=== PATIENT | male | born 1960 | race Caucasian/White ===

== ENCOUNTER 2017-04-09 08:22 | Outpatient (CLI) | payer MEDICARE, MEDICAID ==
[2017-04-09] VITALS (11 sets, daily range): BP systolic 115–159; BP diastolic 70–89; PULSE 55–69; TEMP 97.9
[~2017-04-09] VITALS: Ht 182.9 cm; Wt 153.5 kg
[~2017-04-09 08:22] MED LIST: ABILIFY2 MG PO; ABILIFY5 MG; ABILIFY5 MG PO; ALLOPURINOL100 MG PO; ANTIFUNGAL1% TP; CARDI-OMEGA1000 MG PO; CRESTOR 10MG10 MG PO; DEPAKOTE500 M2 PO; DEPAKOTE500 MG PO; DESYREL 50MG50 MG PO; EPO IV; Epogen; FISH OIL1000 MG PO; FOLIC ACID 11 MG/TA1 PO; FOLIC ACID1 MG PO; FOSRENOL PO; FOSRENOL1000 MG PO; FOSRENOL500 MG PO; FOSRENOL750 MG PO; HALDOL 1MG T1 MG/TAB PO; HALDOL 2MG T2 MG/TAB PO; KAYEXALATE15 GM/60 M PO; LASIX 80MG TABL80 MG PO; LASIX80 MG PO; LEXAPRO10 MG PO; LEXAPRO20 MG PO; LORTAB 7.5/5001 TAB; LOVAZA1 GM PO; NEPHRO PO; NEPHROCAP PO; NEURONTIN100 MG PO; NEURONTIN100 MG/CAP PO; NEURONTIN400 MG PO; NORCO 325 MG-7.1 TAB PO; NYSTATIN CREAM15 GM TP; PHARMASSURE ZIN50 MG PO; PHOSLO667 MG PO; PLAVIX 75MG TAB75 MG PO; PRILOSEC 20MG20 MG PO; PRILOSEC20 MG PO; RENVELA PO; RENVELA800 MG PO; RITE AID BRAND650 MG PO; SENSIPAR30 MG; SENSIPAR60 MG PO; SENSIPAR90 MG PO; SEROQUEL 1100 MG/TAB PO; SEROQUEL 200MG200 MG PO; SEROQUEL100 MG PO; SEROQUEL300 MG PO; SEROQUEL50 MG PO; SIMVASTATIN20 MG PO; SODIUM BIC650 MG/TAB PO; SODIUM BICARB PO; SUPER EPA 2002000 MG PO; TOPAMAX50 MG PO; ZAROXOLYN5 MG PO; ZEMPLAR1 MCG IV; ZOCOR 20MG20 MG PO; ZOLOFT 100MG100 MG PO; ZYLOPRIM 100MG100 MG PO; [UNRECOGNIZED DRUG - OTHER] PO
[2017-04-09] MEDS ORDERED: SEROQUEL 200MG200 MG PO (09:32)
[2017-04-09] MEDS ORDERED: PERIGUARD TP (09:41)
[2017-04-09] MEDS ORDERED: WELLBUTRIN SR200 MG PO (09:43)
[2017-04-09] MEDS ORDERED: FLONASE NASAL S16 GM NS (09:46)
== END 2017-04-09 13:07 | disposition home or self-care (01) ==
LOC: COL.CAR 08:22
DX: T82.9XXA Unspecified complication of cardiac and vascular prosthetic device, implant and graft, initial encounter (principal); N18.6 End stage renal disease; Z99.2 Dependence on renal dialysis
CPT/HCPCS: J2250; J3010; Q9967

== ENCOUNTER 2018-10-16 11:56 | Inpatient (IN) | payer MEDICARE, MEDICAID ==
[~2018-10-16] VITALS: Ht 182.9 cm; Wt 145.3 kg
[2018-10-16] VITALS (254 sets, daily range): BP systolic 96–112; BP diastolic 60–67; PULSE 64–72; TEMP 97.5–98.2; O2SAT 86–99
[~2018-10-16 11:56] MED LIST changes: +DEPAKOTE ER 50500 MG PO; +FLONASE NASAL S16 GM NS; +PERIGUARD TP; +WELLBUTRIN SR200 MG PO
[2018-10-16 12:29] LABS: PROTHROMBIN TIME 11.1 SECONDS (9.7-12.8)
[2018-10-16 12:31] LABS: BASO % 0.4 % (0.0-2.0); EOS # 0.1 (0.0-0.7); EOS % 0.9 % (0-4.0); GRAN # 4.5 (1.4-6.5); GRAN % 65.9 % (42.2-75.2); HEMATOCRIT 38.5 % (42.0-52.0); HEMOGLOBIN 12.3 g/dl (13.5-18.0); LYMPH # 1.6 (1.2-3.4); LYMPH % 23.2 % (20.0-51.0); MEAN CELL VOLUME 99 fl (80.0-100.0); MEAN CORPUSCULAR HEMOGLOBIN 32 pg (27.0-31.0); MEAN CORPUSCULAR HGB CONC 32 g/dl (33.0-37.0); MONO # 0.6 (0.1-0.6); MONO % 9.2 % (1.7-9.3); PLATELET COUNT 203 K/mm3 (130-400); REDCELL DISTRIBUTION WIDTH-CV 14.6 % (11.5-14.5)
[2018-10-16] MEDS ORDERED: TYLENOL 500MG500 MG PO (12:58)
[2018-10-16] MEDS ORDERED: TEMOVATE0.051 TOP (13:49)
[2018-10-16] MEDS ORDERED: NIZORAL CREAM15 GM TOP (13:52)
[2018-10-16] MEDS ORDERED: CYTOMEL 2525 MCG/TAB PO (13:53)
[2018-10-16] MEDS ORDERED: LOVAZA1 GM PO (13:53)
[2018-10-16] MEDS ORDERED: SEROQUEL300 MG PO (13:55)
[2018-10-16 14:04] LABS: MAGNESIUM 2.3 mg/dL (1.6-2.3); PHOSPHOROUS 4.9 mg/dL (2.5-4.5)
[2018-10-16 14:19] LABS: TROPONIN-I 0.856 ng/mL (0.000-0.034)
--- NOTE | 2018-10-16 14:19 | NUR ---
1419: CRIT VALUE - TRIPONIN 0.856 - DR FAUSTIN NOTIFIED AT 1421 - NO NEW ORDERS 1455: CRIT VALUE - CREAT 7.48 - DR FAUSTIN NOTIFIED AT 1455 - NO NEW ORDERS
[2018-10-16 14:44] LABS: ALBUMIN 3.8 gm/dL (3.5-5.0); BILIRUBIN,TOTAL 0.3 mg/dL (0.0-1.0); CALCIUM 10.1 mg/dL (8.4-10.2); POTASSIUM 4.2 mmol/L (3.4-5.0); TOTAL PROTEIN 6.6 gm/dL (6.4-8.2)
[2018-10-16 14:55] LABS: CREATININE, serum 7.48 mg/dL (0.66-1.25)
--- NOTE | 2018-10-16 15:26 | NUR ---
ALL MEDS GIVEN VERBAL WITH READBACK. SEE MERGE FOR ADMIN TIMES.
--- NOTE | 2018-10-16 18:30 | NUR ---
PT C/O DULL ACHE AT SITE. SITE APPEARS NORMAL. PT GIVEN TYLENOL
--- NOTE | 2018-10-16 19:15 | NUR ---
Bedside report received from IRMA Ahmadi.
--- NOTE | 2018-10-16 20:00 | NUR ---
REPORT GIVEN AT BEDSIDE. MESSAGE CONVEYED TO PM SHIT NURSE PT NPO AFTER MIDNIGHT FOR ICD PLACEMENT 10/17. NO ORDER IN THE SYSTEM.
--- NOTE | 2018-10-16 20:00 | NUR ---
Assessment complete at this time. Patient is resting in bed watching tv. no complaints of pain at this time, just slight discomfort from lying flat. Patient is requesting something to eat at this time. Will provide snack. Patient has no other needs at this time. Will continue to monitor. Call light within reach.
[2018-10-17] VITALS (785 sets, daily range): BP systolic 97–128; BP diastolic 59–74; PULSE 58–66; TEMP 97.2–98.9; O2SAT 41–100
--- NOTE | 2018-10-17 | NUR ---
Assessment complete at this time. Patient was asleep. When sleeping his O2 sat dropped to 90%. Asked if patient uses a CPAP at home, states that he used to, but couldnt sleep with it on, so he stopped. Placed patient on 2L OM. Patient has no current complaints of pain or discomfort. Catheter site remains clean, dry, and no hematoma present. Will continue to monitor. Call light within reach.
--- NOTE | 2018-10-17 04:00 | NUR ---
Assessment complete at this time. Patient sleeps between disturbances. No complaints of pain or discomfort at this time. Femoral site continues to remain clean, dry, and free of hematoma. Patient has no current needs at this time. Will continue to monitor. Call light within reach.
--- NOTE | 2018-10-17 07:21 | NUR ---
Bedside report given to IRMA Ahmadi.
--- NOTE | 2018-10-17 08:30 | NUR ---
DURING ASSESSMENT SMALL BRUISING (BROWN AND PURPLE IN COLOR) WERE ON PTS UPPER BACK WITH SMALL 1" SCRATCH LIKE MARKINGS ON PTS UPPER BACK. PT ASKED IF HE FELL OR KNEW WHERE MARKINGS CAME FROM. PT DENIED FALLING AND SAYS HE DOESN'T KNOW AND THE AREA DOESN'T HURT. WILL MONITOR THE AREA.
--- NOTE | 2018-10-17 10:32 | NUR ---
Nurse lining caser was contacted to look into options for discharge. Patient currently lives at [facility] ([phone] with supervisor contact and service clerks there Angelina at [phone]. [facility] called father Berny and discussed options if patient needs senior care care at time of discharge. Berny is a DPOA although [facility] did not find written DPOA form. [facility] is trying to verify with [place]. Father indiated preferences were: 1) [facility] bed 2) [facility] in [place] and 3) [facility]. Berny asked [facility] to confer with [facility] about their preference. Patient had indicated [facility] and [place] as facilities he had stayed at in the past and would be agreeable to stay in either place if necessary. Choice form completed with father and placed on the chart. Patient verbalizes agreement. Message left with Angelina on cell phone at [facility]. Patient's primary care provider is Dr. Tolbert. No discharge date has been determined. Lifevest has been ordered Care managment-web content & social media manager will continue to follow.
--- NOTE | 2018-10-17 11:00 | NUR ---
PT TO DIALYSIS IN [facility]
[2018-10-17 11:52] LABS: EOS # 0.1 (0.0-0.7); EOS % 2.2 % (0-4.0); GRAN # 2.7 (1.4-6.5); GRAN % 64.2 % (42.2-75.2); HEMATOCRIT 35.1 % (42.0-52.0); HEMOGLOBIN 11.2 g/dl (13.5-18.0); LYMPH % 24.9 % (20.0-51.0); MEAN CELL VOLUME 100 fl (80.0-100.0); MEAN CORPUSCULAR HEMOGLOBIN 32 pg (27.0-31.0); MEAN CORPUSCULAR HGB CONC 32 g/dl (33.0-37.0); MEAN PLATELET VOLUME 10.6 fl (7.4-10.4); MONO # 0.3 (0.1-0.6); PLATELET COUNT 158 K/mm3 (130-400); RED BLOOD COUNT 3.52 M/mm3 (4.20-5.60); REDCELL DISTRIBUTION WIDTH-CV 14.7 % (11.5-14.5)
--- NOTE | 2018-10-17 12:00 | NUR ---
Initial visit; Patient thanked Drink Mixer for visit and offering God's blessings following his confirmation that he has a good support system.
[2018-10-17 12:01] LABS: CALCIUM 9.7 mg/dL (8.4-10.2); POTASSIUM 4.7 mmol/L (3.4-5.0)
[2018-10-17 12:08] LABS: CREATININE, serum 8.26 mg/dL (0.66-1.25)
--- NOTE | 2018-10-17 14:55 | NUR ---
Nurse counseling case manager contacted Kathy, a caregiver from [facility]. She feels the 3 options for post acute care are appropriate. Patient is curently in dialysis. NCM will contact [facility] since that is father's first choice.
--- NOTE | 2018-10-17 15:18 | NUR ---
PT RETURNS TO ICU RM 7 FROM DIALYSIS
--- NOTE | 2018-10-17 19:10 | NUR ---
Bedside report received from IRMA Ahmadi
--- NOTE | 2018-10-17 20:00 | NUR ---
Patient is resting in bed at this time watching TV. Shift assessment complete at this time. Patient is requesting a snack, to be provided. Patient has no complaints of pain or discomfort. Will continue to monitor. Call light within reach.
[2018-10-18] VITALS (1051 sets, daily range): BP systolic 101–141; BP diastolic 61–83; PULSE 51–67; TEMP 97.8–98.5; O2SAT 68–100
--- NOTE | 2018-10-18 | NUR ---
Patient asleep at this time. No current needs. Will continue to monitor. Call light within reach.
--- NOTE | 2018-10-18 04:00 | NUR ---
Patient asleep at this time. No current needs. Will continue to monitor. Call light within reach.
--- NOTE | 2018-10-18 07:01 | NUR ---
Bedside report given to IRMA Patterson
[2018-10-18 07:05] LABS: BASO % 0.7 % (0.0-2.0); EOS # 0.1 (0.0-0.7); EOS % 2.7 % (0-4.0); GRAN # 2.5 (1.4-6.5); GRAN % 55.8 % (42.2-75.2); LYMPH # 1.4 (1.2-3.4); LYMPH % 30.8 % (20.0-51.0); MEAN CELL VOLUME 99 fl (80.0-100.0); MEAN CORPUSCULAR HEMOGLOBIN 31 pg (27.0-31.0); MEAN CORPUSCULAR HGB CONC 32 g/dl (33.0-37.0); MEAN PLATELET VOLUME 10.6 fl (7.4-10.4); MONO # 0.4 (0.1-0.6); MONO % 9.3 % (1.7-9.3); PLATELET COUNT 163 K/mm3 (130-400); REDCELL DISTRIBUTION WIDTH-CV 14.6 % (11.5-14.5)
[2018-10-18 07:06] LABS: HEMATOCRIT 34.7 % (42.0-52.0)
[2018-10-18 07:25] LABS: CALCIUM 9.7 mg/dL (8.4-10.2); POTASSIUM 4.6 mmol/L (3.4-5.0)
[2018-10-18 07:32] LABS: CREATININE, serum 7.68 mg/dL (0.66-1.25)
--- NOTE | 2018-10-18 10:06 | NUR ---
Program Advisor Cathy contacted and was uninformed of pt situation. Returned call at [phone] with information that [facility] has accepted the pt, although they are at maximum capacity with pending discharges today. Pt will be able to transfer there tomorrow. Evelyn FOOTE and [facility]er[facility] FOOTE notified. No further orders. Pt and parents updated as well. Ayleen from [facility] notifed me that documentation for approval is missing. Proper records will be collected and faxed right away.
--- NOTE | 2018-10-18 10:29 | NUR ---
Visited with patient and provided spiritual care. The Doctor came in so I excused myself.
--- NOTE | 2018-10-18 10:32 | NUR ---
Update: DUTCH rc call from ICU about dc today. DUTCH called [facility], they are full pending dc's today, may have av 10/19/18. Other two placements were not previously screened. DUTCH sent referrals to both. [place] and [place] . Awaiting screen results or acceptance to [facility]
--- NOTE | 2018-10-18 18:59 | NUR ---
Bedside report received from IRMA Patterson
--- NOTE | 2018-10-18 20:00 | NUR ---
Shift assessment complete at this time. Patient is resting in bed watching TV. Requests to use phone to call his parents, assisted with dialing the number for him. No complaints of pain or discomfort. Changed occlusive dressing on cath site to a bandaid. Site looks clean, dry, with no hematoma or pain present. Patient has no other needs at this time. Will continue to monitor. Call light within reach.
[2018-10-19] VITALS (497 sets, daily range): BP systolic 108–136; BP diastolic 56–73; PULSE 49–57; TEMP 97.5–98.5; O2SAT 55–100
--- NOTE | 2018-10-19 | NUR ---
Patient resting in bed at this time. He is awake in bed, has no current needs at this time. Will continue to monitor. Call light within reach.
--- NOTE | 2018-10-19 01:45 | NUR ---
Patient has decreasing O2 sats at this time possibly due to sleep apnea. oxymask applied at 2.5L. RT notified.
--- NOTE | 2018-10-19 04:00 | NUR ---
Patient up to restroom at this time with standby assist. Patient had no urine or BM. Returned to bed. No further needs at this time. Will continue to monitor. Call light within reach.
--- NOTE | 2018-10-19 07:05 | NUR ---
Bedside report given to IRMA Patterson
[2018-10-19 09:03] LABS: BASO % 0.9 % (0.0-2.0); EOS # 0.1 (0.0-0.7); EOS % 1.9 % (0-4.0); GRAN # 2.3 (1.4-6.5); GRAN % 49.2 % (42.2-75.2); HEMATOCRIT 34.7 % (42.0-52.0); HEMOGLOBIN 11.1 g/dl (13.5-18.0); LYMPH # 1.6 (1.2-3.4); LYMPH % 34.8 % (20.0-51.0); MEAN CELL VOLUME 98 fl (80.0-100.0); MEAN CORPUSCULAR HEMOGLOBIN 31 pg (27.0-31.0); MEAN CORPUSCULAR HGB CONC 32 g/dl (33.0-37.0); MEAN PLATELET VOLUME 10.8 fl (7.4-10.4); MONO # 0.6 (0.1-0.6); MONO % 11.9 % (1.7-9.3); PLATELET COUNT 134 K/mm3 (130-400); RED BLOOD COUNT 3.53 M/mm3 (4.20-5.60); REDCELL DISTRIBUTION WIDTH-CV 14.5 % (11.5-14.5)
--- NOTE | 2018-10-19 13:30 | NUR ---
Pt arrived to room 356 at this time. He currently denies pain. No SOB. Fistula to LFA, thrill palpitated, bruit auscultated. No edema present. Pt denies needs at this time. Call light within reach.
--- NOTE | 2018-10-19 18:36 | NUR ---
Zoll in to fit patient for life vest at this time. This nurse at bedside to help with instructions. Pt taught via teach back method, pt forgetful. Pt denied any pain, chest pain or SOB after arriving to the floor. VSS. Call light within reach.
--- NOTE | 2018-10-19 19:40 | NUR ---
Shift assessment complete. Pt resting in bedside recliner, awake, a&o c some noted mental delay, cooperative c cares. Pt denies pain or any other c/o at this time. INT x2 patent. HD AVF noted to L forearm, strong bruit/thrill. Tele in place. Live vest in place, recently fitted; reviewed c pt. Pt denies needs. Call light in reach, will monitor.
[2018-10-20] VITALS (18 sets, daily range): BP systolic 74–136; BP diastolic 49–80; PULSE 49–59; TEMP 97.5–98.2
--- NOTE | 2018-10-20 08:27 | NUR ---
Pt assessment complete. Pt is laying in bed upon entry sleeping, he arouses to voice. Pt reports no pain but being very tired. He denies chest pain or SOB. Pt has life vest on, battery changed. Breakfast ordered for patient. He denies further needs. Call light within reach.
--- NOTE | 2018-10-20 10:18 | NUR ---
DUTCH contacted Kate, at [facility], on bed availability. Kate reports that they do not have a bed available today and requested updates on the patient. DUTCH faxed over updates. DUTCH then attempted to contact Jaja at [facility]. DUTCH left a voicemail. DUTCH then contacted Christina at [facility]. Christina reports that they are still screening the patient and will have an answer later today. SW to continue to follow.
--- NOTE | 2018-10-20 11:28 | NUR ---
SW contacted the patient's father, Berny, to update on the referrals sent for SNF and to discuss other options closer to [place]; due to the patient needing dialysis and having a PCP in [place]. The patient's father reports that he would be agreeable to SNF in [place]. The patient's father preferred 1) [facility] 2) [facility] 3) [facility]. DUTCH has contacted and faxed a referral to all three facilities. SW awaiting their screenings and the screenings from [facility] and [facility].
--- NOTE | 2018-10-20 11:31 | NUR ---
Pt down to dialysis via W/C at this time.
[2018-10-20 11:42] LABS: CALCIUM 9.5 mg/dL (8.4-10.2); MAGNESIUM 2.4 mg/dL (1.6-2.3); POTASSIUM 4.8 mmol/L (3.4-5.0)
[2018-10-20 12:11] LABS: CREATININE, serum 12.42 mg/dL (0.66-1.25)
--- NOTE | 2018-10-20 13:19 | NUR ---
Ame, from [facility], reports that they cannot accept the patient. SW awaiting screenings from the other facilities.
--- NOTE | 2018-10-20 14:08 | NUR ---
Octavio, at [facility], reports that they have declined the patient. [facility], reports that they [facility] declined the patient.
--- NOTE | 2018-10-20 15:04 | NUR ---
Pt back from dialysis. Lunch ordered at this time.
[2018-10-20] MEDS ORDERED: TOPROL XL 25MG25 MG PO (15:05)
--- NOTE | 2018-10-20 15:52 | NUR ---
[facility] for a skilled stay. SW informed the patient, patient's father, and the patient's caregiver (Carolyn) from [place]. They were all in agreeance for the [facility] transferring to [facility]. The [facility] to [facility] today, [facility]20[facility] to [facility]. Transportation was set for around 1600, via [facility]. SW informed the patient, patient's nurse, and the patient's father via phone. They were all in agreeance. SW presented and explained the IM form to the patient. SW also explained the IM form to the patient's father, via phone. The patient and patient's father verbalized understanding. The patient's father gave SW his verbal consent and the patient was provided a copy. No additional needs at this time.
--- NOTE | 2018-10-20 16:30 | NUR ---
Pt had BM prior to leaving, assisted with clothing change. Pt wheeled out of facility by [facility] employee. IV to ABBIE and José Miguel parker'd, catheter tip in place.
--- NOTE | 2018-10-20 17:45 | NUR ---
Attempted to call report to nurse Anna deferred report. Information about battery change and phone to be near pt while sleeping. Instructed to call 800 number for zoll if any questions.
== END 2018-10-20 16:45 | DRG 280 ==
LOC: COL.ER 11:56 → ICU 12:58 → MEDICAL 10-19 13:30
PROVIDERS: Family Medicine; Internal Medicine; Physician Assistant; ADMIT Hospitalist
PROC: B2111ZZ Fluoroscopy of Multiple Coronary Arteries using Low Osmolar Contrast (ICD-10-PCS; 2018-10-16)
PROC: B2151ZZ Fluoroscopy of Left Heart using Low Osmolar Contrast (ICD-10-PCS; 2018-10-16)
PROC: 4A023N7 Measurement of Cardiac Sampling and Pressure, Left Heart, Percutaneous Approach (ICD-10-PCS; 2018-10-16)
PROC: 5A1D70Z Performance of Urinary Filtration, Intermittent, Less than 6 Hours Per Day (ICD-10-PCS; principal; 2018-10-17)
PROC: 5A1D70Z Performance of Urinary Filtration, Intermittent, Less than 6 Hours Per Day (ICD-10-PCS; 2018-10-20)
DX: I47.2 Ventricular tachycardia (principal); N18.6 End stage renal disease; I21.A1 Myocardial infarction type 2; I12.0 Hypertensive chronic kidney disease with stage 5 chronic kidney disease or end stage renal disease; Z68.41 Body mass index [BMI] 40.0-44.9, adult; I42.0 Dilated cardiomyopathy; E87.1 Hypo-osmolality and hyponatremia; N25.81 Secondary hyperparathyroidism of renal origin; Z99.2 Dependence on renal dialysis; E78.5 Hyperlipidemia, unspecified; E66.01 Morbid (severe) obesity due to excess calories; F70 Mild intellectual disabilities; D63.1 Anemia in chronic kidney disease; F41.1 Generalized anxiety disorder; F20.9 Schizophrenia, unspecified; E83.52 Hypercalcemia; G62.9 Polyneuropathy, unspecified; E83.39 Other disorders of phosphorus metabolism; M10.9 Gout, unspecified; I95.9 Hypotension, unspecified
CPT/HCPCS: 99222-AI; 99232-AI; 99233-AI; 99239; C1760; C1894; J0153; J0282; J1644; J2250; J3010; J7030; J7040; J7060; Q9967

== ENCOUNTER 2018-10-22 16:38 | Inpatient (IN) | payer MEDICARE, MEDICAID ==
[~2018-10-22] VITALS: Ht 180.3 cm; Wt 145.9 kg
[~2018-10-22 16:38] MED LIST changes: +CYTOMEL 2525 MCG/TAB PO; +NIZORAL CREAM15 GM TOP; +TEMOVATE0.051 TOP; +TOPROL XL 25MG25 MG PO; +TYLENOL 500MG500 MG PO
[2018-10-22 17:08] LABS: BASO % 0.6 % (0.0-2.0); EOS # 0.1 (0.0-0.7); EOS % 1.5 % (0-4.0); GRAN # 2.4 (1.4-6.5); GRAN % 69.9 % (42.2-75.2); HEMOGLOBIN 11.8 g/dl (13.5-18.0); LYMPH # 0.7 (1.2-3.4); LYMPH % 20.6 % (20.0-51.0); MEAN CELL VOLUME 99 fl (80.0-100.0); MEAN CORPUSCULAR HEMOGLOBIN 32 pg (27.0-31.0); MEAN CORPUSCULAR HGB CONC 33 g/dl (33.0-37.0); MEAN PLATELET VOLUME 10.5 fl (7.4-10.4); MONO # 0.2 (0.1-0.6); MONO % 6.8 % (1.7-9.3); PLATELET COUNT 205 K/mm3 (130-400); RED BLOOD COUNT 3.64 M/mm3 (4.20-5.60); REDCELL DISTRIBUTION WIDTH-CV 14.6 % (11.5-14.5)
[2018-10-22 17:09] LABS: HEMATOCRIT 35.9 % (42.0-52.0)
[2018-10-22 17:19] LABS: ALANINE AMINOTRANSFERASE 37 U/L (21-72); ALBUMIN 4.3 gm/dL (3.5-5.0); ALKALINE PHOSPHATASE 82 U/L (50-136); ANION GAP 13 mmol/L (7-16); AST,SGOT 24 U/L (15-37); BILIRUBIN,TOTAL 0.4 mg/dL (0.0-1.0); BLOOD UREA NITROGEN 22 mg/dL (9-20); CALCIUM 9.9 mg/dL (8.4-10.2); CARBON DIOXIDE 27 mmol/L (22-30); CHLORIDE 103 mmol/L (98-107); GLUCOSE 111 mg/dL (74-106); MAGNESIUM 2.1 mg/dL (1.6-2.3); PHOSPHOROUS 3.7 mg/dL (2.5-4.5); POTASSIUM 4.2 mmol/L (3.4-5.0); SODIUM 143 mmol/L (137-145); TOTAL PROTEIN 7.4 gm/dL (6.4-8.2)
[2018-10-22 17:34] LABS: CREATININE, serum 5.62 mg/dL (0.66-1.25); TROPONIN-I 0.065 ng/mL (0.000-0.034)
[2018-10-22 17:45] LABS: VALPROIC ACID (DEPAKENE) < 10.0 ug/mL (50.0-100.0)
[2018-10-22 23:44] VITALS: BP 105/94; PULSE 66; TEMP 989
[2018-10-22 23:52] VITALS: O2SAT 95
[2018-10-23] VITALS (680 sets, daily range): BP systolic 109–142; BP diastolic 61–74; PULSE 53–62; TEMP 97.4–98.5; O2SAT 83–100
[2018-10-23] MEDS ORDERED: FISH OIL 1000MG1 CAP PO (00:04)
[2018-10-23 05:57] LABS: HEMOGLOBIN 11.4 g/dl (13.5-18.0); MEAN CELL VOLUME 100 fl (80.0-100.0); MEAN CORPUSCULAR HEMOGLOBIN 32 pg (27.0-31.0); MEAN CORPUSCULAR HGB CONC 32 g/dl (33.0-37.0); MEAN PLATELET VOLUME 10.2 fl (7.4-10.4); PLATELET COUNT 186 K/mm3 (130-400); REDCELL DISTRIBUTION WIDTH-CV 14.8 % (11.5-14.5)
[2018-10-23 05:58] LABS: HEMATOCRIT 36.1 % (42.0-52.0)
[2018-10-23 06:11] LABS: CALCIUM 9.8 mg/dL (8.4-10.2); MAGNESIUM 2.2 mg/dL (1.6-2.3); POTASSIUM 4.6 mmol/L (3.4-5.0)
[2018-10-23 06:13] LABS: CREATININE, serum 7.83 mg/dL (0.66-1.25)
[2018-10-23 09:57] LABS: TSH w REFLEX 6.8 uIU/mL (0.465-4.680)
[2018-10-24 01:59] VITALS: BP 115/64; PULSE 57
[2018-10-24 08:00] VITALS: BP 127/61; PULSE 48; TEMP 97.5
[2018-10-24 09:17] LABS: BASO % 0.9 % (0.0-2.0); EOS # 0.1 (0.0-0.7); GRAN # 2.7 (1.4-6.5); GRAN % 58.6 % (42.2-75.2); HEMOGLOBIN 11.3 g/dl (13.5-18.0); LYMPH # 1.4 (1.2-3.4); LYMPH % 31.2 % (20.0-51.0); MEAN CELL VOLUME 100 fl (80.0-100.0); MEAN CORPUSCULAR HEMOGLOBIN 32 pg (27.0-31.0); MEAN CORPUSCULAR HGB CONC 32 g/dl (33.0-37.0); MEAN PLATELET VOLUME 10.1 fl (7.4-10.4); MONO # 0.3 (0.1-0.6); MONO % 6.9 % (1.7-9.3); PLATELET COUNT 180 K/mm3 (130-400); RED BLOOD COUNT 3.58 M/mm3 (4.20-5.60); REDCELL DISTRIBUTION WIDTH-CV 14.9 % (11.5-14.5)
[2018-10-24 09:18] LABS: HEMATOCRIT 35.8 % (42.0-52.0)
[2018-10-24 09:29] LABS: ALBUMIN 4.2 gm/dL (3.5-5.0); CALCIUM 9.9 mg/dL (8.4-10.2); PHOSPHOROUS 5.9 mg/dL (2.5-4.5); POTASSIUM 4.4 mmol/L (3.4-5.0)
[2018-10-24 09:44] LABS: CREATININE, serum 8.27 mg/dL (0.66-1.25)
[2018-10-24 12:28] VITALS: BP 103/83; PULSE 67; TEMP 98
[2018-10-24 16:00] VITALS: BP 128/62; PULSE 67; TEMP 97.6
[2018-10-24 19:18] VITALS: BP 121/62; PULSE 73; TEMP 98.8
[2018-10-24 23:29] VITALS: BP 127/76; PULSE 69; TEMP 97.8
[2018-10-25 05:06] VITALS: BP 127/65; PULSE 52
[2018-10-25 08:16] VITALS: BP 116/48; PULSE 62; TEMP 98.2
[2018-10-25 11:07] VITALS: BP 140/64; PULSE 50; TEMP 97.7
[2018-10-25] MEDS ORDERED: WELLBUTRIN SR150 M1 PO (12:54)
[2018-10-25] MEDS ORDERED: SYNTHROID0.05 MG/TA PO (12:56)
== END 2018-10-25 14:56 | DRG 308 ==
LOC: COL.ER 16:38 → ICU 20:37 → MEDICAL 10-23 15:30 → ICU 10-23 15:30 → MEDICAL 10-23 15:30
PROVIDERS: Emergency Medicine; Internal Medicine Cardiovascular Disease; Internal Medicine Nephrology
PROC: 5A1D70Z Performance of Urinary Filtration, Intermittent, Less than 6 Hours Per Day (ICD-10-PCS; principal; 2018-10-24)
DX: I47.2 Ventricular tachycardia (principal); N18.6 End stage renal disease; I12.0 Hypertensive chronic kidney disease with stage 5 chronic kidney disease or end stage renal disease; Z68.42 Body mass index [BMI] 45.0-49.9, adult; I42.0 Dilated cardiomyopathy; T38.1X5A Adverse effect of thyroid hormones and substitutes, initial encounter; Z99.2 Dependence on renal dialysis; F81.9 Developmental disorder of scholastic skills, unspecified; E78.5 Hyperlipidemia, unspecified; D63.1 Anemia in chronic kidney disease; F20.9 Schizophrenia, unspecified; E66.01 Morbid (severe) obesity due to excess calories; F41.9 Anxiety disorder, unspecified
CPT/HCPCS: G0378; J0282; J7060

== ENCOUNTER → 2018-10-28 | Outpatient (REF) ==
[~2018-10-28] MED LIST changes: +FISH OIL 1000MG1 CAP PO; +SYNTHROID0.05 MG/TA PO; +WELLBUTRIN SR150 M1 PO
[2018-10-28 07:58] LABS: PROTHROMBIN TIME 11.9 SECONDS (9.7-12.8)
[2018-10-28 07:59] LABS: BASO % 0.9 % (0.0-2.0); EOS # 0.1 (0.0-0.7); EOS % 2.6 % (0-4.0); GRAN # 2.7 (1.4-6.5); GRAN % 60.2 % (42.2-75.2); HEMOGLOBIN 11.2 g/dl (13.5-18.0); LYMPH # 1.2 (1.2-3.4); MEAN CELL VOLUME 103 fl (80.0-100.0); MEAN CORPUSCULAR HEMOGLOBIN 32 pg (27.0-31.0); MEAN CORPUSCULAR HGB CONC 31 g/dl (33.0-37.0); MEAN PLATELET VOLUME 10.6 fl (7.4-10.4); MONO # 0.5 (0.1-0.6); MONO % 9.9 % (1.7-9.3); PLATELET COUNT 171 K/mm3 (130-400); REDCELL DISTRIBUTION WIDTH-CV 14.9 % (11.5-14.5)
[2018-10-28 08:01] LABS: ALBUMIN 3.9 gm/dL (3.5-5.0); BILIRUBIN,TOTAL 0.3 mg/dL (0.0-1.0); CALCIUM 9.8 mg/dL (8.4-10.2); HEMATOCRIT 35.9 % (42.0-52.0); POTASSIUM 4.9 mmol/L (3.4-5.0); TOTAL PROTEIN 6.7 gm/dL (6.4-8.2)
[2018-10-28 08:04] LABS: CREATININE, serum 8.47 mg/dL (0.66-1.25)
== END ==
LOC: ZCOL.LAB 07:50
PROVIDERS: Internal Medicine
DX: I47.2 Ventricular tachycardia (principal); I42.9 Cardiomyopathy, unspecified; N18.6 End stage renal disease

== ENCOUNTER 2020-04-26 11:35 | Outpatient (CLI) | payer MEDICARE, MEDICAID ==
[2020-04-26] MEDS ORDERED: ZYLOPRIM 100MG100 MG PO (11:49)
[2020-04-26] MEDS ORDERED: COLACE 100100 MG/CAP PO (11:51)
[2020-04-26] MEDS ORDERED: LOPID 600M600 MG/TAB PO (11:52)
[2020-04-26] MEDS ORDERED: CYTOMEL 2525 MCG/TAB PO (11:55)
[2020-04-26] MEDS ORDERED: MIRALAX PA17 GM/Dose PO (11:56)
[2020-04-26] MEDS ORDERED: BACTROBAN15 GM TOP (11:57)
[2020-04-26] MEDS ORDERED: ZYPREXA 5MG5 MG PO (12:11)
[2020-04-26] MEDS ORDERED: OMEGA-3 1000 MG1 CAP PO (12:12)
[2020-04-26] MEDS ORDERED: SEROQUEL XR300 MG PO (12:13)
[2020-04-26] MEDS ORDERED: SEROQUEL 200MG200 MG PO (12:15)
[2020-04-26 13:59] VITALS: BP 150/81; PULSE 60
--- NOTE | 2020-04-26 14:01 | NUR ---
SEE MERGE DOCUMENTATION FOR MEDICATION ADMINISTRATION AND INTRA/POST PROCEDURE SEDATION ASSESSMENTS.
--- NOTE | 2020-04-26 15:48 | NUR ---
INT discontinued intact. Discharge papers given. Transferred to [employer] van by coleen
== END 2020-04-26 15:49 | disposition home or self-care (01) ==
LOC: COL.CAR 11:35
DX: T82.898A Other specified complication of vascular prosthetic devices, implants and grafts, initial encounter (principal); I12.0 Hypertensive chronic kidney disease with stage 5 chronic kidney disease or end stage renal disease; N18.6 End stage renal disease; E03.9 Hypothyroidism, unspecified; Z86.73 Personal history of transient ischemic attack (TIA), and cerebral infarction without residual deficits; Z88.6 Allergy status to analgesic agent; Z79.51 Long term (current) use of inhaled steroids
CPT/HCPCS: J1644; Q9967

== ENCOUNTER 2020-08-17 18:22 | Inpatient (IN) | payer MEDICARE, MEDICAID ==
[~2020-08-17] VITALS: Ht 177.8 cm; Wt 131.5 kg
[~2020-08-17 18:22] MED LIST changes: +BACTROBAN15 GM TOP; +COLACE 100100 MG/CAP PO; +LOPID 600M600 MG/TAB PO; +MIRALAX PA17 GM/Dose PO; +OMEGA-3 1000 MG1 CAP PO; +ZYPREXA 5MG5 MG PO
--- NOTE | 2020-08-17 20:03 | NUR ---
Pt arrived via EMS to medical unit room 356. Pt stable at this time, states no needs at this time.
[2020-08-17] MEDS ORDERED: BACTRIM DS 8001 TAB PO ×2 (23:01→23:02)
[2020-08-17] MEDS ORDERED: WELLBUTRIN SR200 MG PO (23:07)
[2020-08-17] MEDS ORDERED: TRIPHROCAPS SOFT1 MG PO (23:13)
[2020-08-17] MEDS ORDERED: PHARMASSURE ZIN50 MG PO (23:17)
[2020-08-18] VITALS (7 sets, daily range): BP systolic 110–138; BP diastolic 57–81; PULSE 58–74; TEMP 97.2–98.2
--- NOTE | 2020-08-18 05:45 | NUR ---
Assisted pt to use bedpan few times during this shift, pt only passed gas. no c/o during rest. pain with movement of lt leg. Meds administered. Call light within reach.
--- NOTE | 2020-08-18 07:21 | NUR ---
Report given to IRMA Menchaca.
--- NOTE | 2020-08-18 10:18 | NUR ---
No IV site at this time. Generalized edema noted in bilateral lower extremities. L knee larger in size than R. Generalized bruising covering body at this time. Pt placed on bed christina during assessment with no results.
--- NOTE | 2020-08-18 10:45 | NUR ---
Initial visit; Patient thanked Database Specialist for looking in on him and offering God's blessings and keeping him in museum informatics specialist's prayers.
[2020-08-18 13:25] LABS: BASO % 0.9 % (0.0-2.0); EOS # 0.1 (0.0-0.7); EOS % 2.2 % (0-4.0); GRAN # 1.9 (1.4-6.5); GRAN % 58.8 % (42.2-75.2); HEMOGLOBIN 11.2 g/dl (13.5-18.0); LYMPH # 0.8 (1.2-3.4); MEAN CELL VOLUME 104 fl (80.0-100.0); MEAN CORPUSCULAR HEMOGLOBIN 33 pg (27.0-31.0); MEAN CORPUSCULAR HGB CONC 31 g/dl (33.0-37.0); MEAN PLATELET VOLUME 10.8 fl (7.4-10.4); MONO # 0.4 (0.1-0.6); MONO % 11.8 % (1.7-9.3); PLATELET COUNT 204 K/mm3 (130-400); RED BLOOD COUNT 3.42 M/mm3 (4.20-5.60); REDCELL DISTRIBUTION WIDTH-CV 14.4 % (11.5-14.5)
[2020-08-18 13:30] LABS: HEMATOCRIT 35.7 % (42.0-52.0)
[2020-08-18 13:41] LABS: ALBUMIN 4.3 gm/dL (3.5-5.0); CALCIUM 10.4 mg/dL (8.4-10.2); CREATININE, serum 7.12 (0.66-1.25); PHOSPHOROUS 4.9 mg/dL (2.5-4.5); POTASSIUM 4.7 mmol/L (3.4-5.0)
--- NOTE | 2020-08-18 13:43 | NUR ---
Primary nurse was assisted with [phone] patient care by [employer] student Meera Moore and [employer] instructor Kimberley Myers RN-.
--- NOTE | 2020-08-18 16:45 | NUR ---
DUTCH contacted the patient's mother/DPOA-HC, Mallory (ph#[phone]), to discuss discharge plan. The patient resides at [facility] in [place]. She reports that the patient is independent with ADLs and has a walker. She states that the [facility] helps him with his medications and all his medical needs. The patient's PCP is Dr. Sonny Bates and she thinks the [facility] gets his meds from [facility]. The patient's advance directives are in EMR. His DPOA-HC is his mother and father, Ari (ph#[phone]). The patient had a patellar fracture. SW discussed the possiblity of needing post-acute rehab. Mallory reports that she would be agreeable to rehab for the patient and would be interested in [facility]. She states that [facility] takes care of the patient and requested that SW talk to them about preferences for rehab. DUTCH attempted to contact [facility]. DUTCH left them a voicemail. DUTCH faxed a referral to [facility]. SW awaiting their screen.
--- NOTE | 2020-08-18 23:02 | NUR ---
Pt sleeping upon entry, awakens to voice. Pt states no pain at rest and refused any pain med at this time. Scheduled meds administered. LLE with immobilzer in place, elevated on pillow with ice pack place on knee. Assisted pt to bed christina, but pt only passed gas. Voices no other needs or concerns at this time. Will monitor pt. Call light within reach.
[2020-08-19 00:19] VITALS: BP 113/66; PULSE 65; TEMP 97.6
[2020-08-19 03:56] VITALS: BP 114/62; PULSE 60; TEMP 97.2
--- NOTE | 2020-08-19 05:25 | NUR ---
Pt uneventful during this shift. Slept though the night. LLE in immobilizer, ice pack placed and elevated. Meds administered. Call light within reach.
--- NOTE | 2020-08-19 06:56 | NUR ---
Report given to IRMA Duong.
--- NOTE | 2020-08-19 07:00 | NUR ---
Report received from IRMA Dove. PT in bed resting without needs. Will continue to monitor.
--- NOTE | 2020-08-19 07:53 | NUR ---
Pt resting in bed in supine position with head of bed elevated roughly 30 degrees. Pt spoke with professional nursing assistant during assessment and requested to rest as much as he could until breakfast came. While communicating with student nurse, pt appeared to be in a good mood and laughing. Able to follow conversation appropriately and made good eye contact during conversation. Will continue to monitor.
--- NOTE | 2020-08-19 10:20 | NUR ---
Assessment charted. Pt doing well, MRI of knee this am and to dialysis now. Resting fine, immobilizer to L knee. LFA AV fistula, thrill and bruit present. No IV access. Oriented to everything except date. Denies needs, will continue to monitor.
[2020-08-19 10:43] LABS: BASO % 0.7 % (0.0-2.0); EOS # 0.1 (0.0-0.7); EOS % 2.9 % (0-4.0); GRAN # 1.7 (1.4-6.5); GRAN % 63.3 % (42.2-75.2); HEMOGLOBIN 10.7 g/dl (13.5-18.0); LYMPH # 0.7 (1.2-3.4); MEAN CELL VOLUME 105 fl (80.0-100.0); MEAN CORPUSCULAR HEMOGLOBIN 33 pg (27.0-31.0); MEAN CORPUSCULAR HGB CONC 32 g/dl (33.0-37.0); MEAN PLATELET VOLUME 10.6 fl (7.4-10.4); MONO # 0.2 (0.1-0.6); MONO % 8.7 % (1.7-9.3); PLATELET COUNT 200 K/mm3 (130-400); RED BLOOD COUNT 3.25 M/mm3 (4.20-5.60); REDCELL DISTRIBUTION WIDTH-CV 14.4 % (11.5-14.5)
[2020-08-19 10:57] LABS: ALBUMIN 3.9 gm/dL (3.5-5.0); CALCIUM 9.8 mg/dL (8.4-10.2); CREATININE, serum 9.13 (0.66-1.25); PHOSPHOROUS 6.8 mg/dL (2.5-4.5); POTASSIUM 4.7 mmol/L (3.4-5.0)
--- NOTE | 2020-08-19 12:19 | NUR ---
The was downgraded to observation status yesterday, 08/18, per Dr. Chu. DUTCH and senior cytotechnologist, Sara, contacted the patient's father and mother to inform of status change. SW read the Medicare Outpatient Observation Notice Form outloud to the patient's mother and father. The patient's father, Air, verbalized understanding and gave DUTCH approval to sign the form on his behalf. All questions were answered.
--- NOTE | 2020-08-19 13:59 | NUR ---
Primary nurse was assisted with [phone] patient care by [employer] student Meera Moore and [employer] instructor Kimberley Myers RN-.
--- NOTE | 2020-08-19 14:59 | NUR ---
Geri, with Dr. Chu, reports that Ortho is recommending surgical repair and that the patient may have surgery Saturday or Saturday. The patient was made inpatient. DUTCH contacted Wendy at [facility]. Wedny reports that they will not be able to take care of the patient when ready to d/c and also recommend post-acute rehab for him upon discharge. She is interested in a rehab facility that is close to the dialysis center in [facility]. DUTCH met with the patient to update and to inform him of the rehab options close to the dialysis centers. The patient states that he is agreeable to rehab and would be interested in [facility], and [facility]. He does not want to go to [facility] or [facility]. DUTCH contacted and faxed a referral to [facility] DUTCH consulted IPR Director, Albertina. DUTCH contacted and updated the patient's mother, Mallory. Mallory was agreeable to the above plan. SW awaiting screens.
[2020-08-19 17:07] VITALS: BP 120/62; PULSE 67; TEMP 97.5
[2020-08-19 19:09] VITALS: BP 106/53; PULSE 78; TEMP 97.2
--- NOTE | 2020-08-19 19:16 | NUR ---
Orders received from [facility] for Dr. Kam for surgery tomorrow at 0800. Orders inputed and consent received over the phone with 2nd RN. Resting in bed, taking po well. Report given to IRMA Mcdaniel whow ill resume care.
--- NOTE | 2020-08-19 20:00 | NUR ---
Received report from IRMA Duong. Consent for left patellar tendon repair obtained with mother, Mallory, over the phone, 2nd RN verified with IRMA Duong. Consent signed and placed on chart. Pt understands procedure is scheduled for tmrw and understands NPO status at midnight. Snacks provided as requested prior to midnight as requested by pt. Scheduled meds administered. INT to RFA intact, flushed, dressing CDI. LLE with immobilizer in place, denies any pain at this time. Will monitor. call light within reach. Needs met.
[2020-08-19 23:17] VITALS: BP 111/60; PULSE 66; TEMP 97.6
[2020-08-20] VITALS (13 sets, daily range): BP systolic 112–136; BP diastolic 52–79; PULSE 62–86; TEMP 97.3–98
[2020-08-20 06:08] LABS: BASO % 1.1 % (0.0-2.0); EOS # 0.1 (0.0-0.7); EOS % 4.2 % (0-4.0); GRAN # 1.4 (1.4-6.5); GRAN % 49.7 % (42.2-75.2); HEMOGLOBIN 10.6 g/dl (13.5-18.0); LYMPH # 0.9 (1.2-3.4); LYMPH % 32.3 % (20.0-51.0); MEAN CELL VOLUME 106 fl (80.0-100.0); MEAN CORPUSCULAR HEMOGLOBIN 33 pg (27.0-31.0); MEAN CORPUSCULAR HGB CONC 31 g/dl (33.0-37.0); MEAN PLATELET VOLUME 10.8 fl (7.4-10.4); MONO # 0.4 (0.1-0.6); MONO % 12.3 % (1.7-9.3); PLATELET COUNT 205 K/mm3 (130-400); RED BLOOD COUNT 3.22 M/mm3 (4.20-5.60); REDCELL DISTRIBUTION WIDTH-CV 14.2 % (11.5-14.5)
[2020-08-20 06:21] LABS: ALBUMIN 3.9 gm/dL (3.5-5.0); CALCIUM 9.9 mg/dL (8.4-10.2); CREATININE, serum 7.4 (0.66-1.25); PHOSPHOROUS 6.7 mg/dL (2.5-4.5)
--- NOTE | 2020-08-20 06:40 | NUR ---
Pt made no complaints during this shift. Remained NPO since midnight.
--- NOTE | 2020-08-20 07:10 | NUR ---
PATIENT LEFT FOR SURGERY VIA HOSPITAL BED
--- NOTE | 2020-08-20 07:31 | NUR ---
Report given to IRMA Sexton.
--- NOTE | 2020-08-20 09:45 | NUR ---
PATIENT ASSESSMENT COMPLETED WHEN RETURNED TO THE ROOM FROM SURGERY. REQUESTS SOMETHING TO EAT AND DRINK
--- NOTE | 2020-08-20 10:30 | NUR ---
MEAL HAS ARRIVED AND TAKES ORAL MEDICATIONS WITHOUT DIFFICULTY. PRN 1 TAB NORCO WAS PROVIDED PER HIS REQUEST OF PAIN TO HIS LEG
--- NOTE | 2020-08-20 14:04 | NUR ---
PATIENT HAS FINISHED LUNCH AND WANTING A SNACK. I WILL PROVIDE
--- NOTE | 2020-08-20 22:08 | NUR ---
Pt assessment completed and charted. Meds provided as per MAR as well as PRN pain meds, tolerated well. Pt is settled on his bed with elevated left leg with pillow. Call light is on, bed alarm is on. No further needs at this time.
[2020-08-21] VITALS (7 sets, daily range): BP systolic 103–151; BP diastolic 54–81; PULSE 64–73; TEMP 97.4–98.2
--- NOTE | 2020-08-21 05:21 | NUR ---
Pt had an uneventful night. slept on and off through out the night. PRN pain meds provided frequently on pt request. No further needs at this time.
[2020-08-21 07:28] LABS: BASO % 0.5 % (0.0-2.0); EOS # 0.1 (0.0-0.7); EOS % 1.9 % (0-4.0); GRAN # 2.6 (1.4-6.5); GRAN % 62.7 % (42.2-75.2); HEMOGLOBIN 10.2 g/dl (13.5-18.0); LYMPH % 24.3 % (20.0-51.0); MEAN CELL VOLUME 106 fl (80.0-100.0); MEAN CORPUSCULAR HEMOGLOBIN 33 pg (27.0-31.0); MEAN CORPUSCULAR HGB CONC 31 g/dl (33.0-37.0); MEAN PLATELET VOLUME 10.5 fl (7.4-10.4); MONO # 0.4 (0.1-0.6); MONO % 10.1 % (1.7-9.3); PLATELET COUNT 209 K/mm3 (130-400); RED BLOOD COUNT 3.09 M/mm3 (4.20-5.60); REDCELL DISTRIBUTION WIDTH-CV 14.1 % (11.5-14.5)
[2020-08-21 07:34] LABS: HEMATOCRIT 32.8 % (42.0-52.0)
[2020-08-21 07:38] LABS: ALBUMIN 3.9 gm/dL (3.5-5.0); CALCIUM 9.6 mg/dL (8.4-10.2); CREATININE, serum 9.46 (0.66-1.25); PHOSPHOROUS 7.7 mg/dL (2.5-4.5); POTASSIUM 5.5 mmol/L (3.4-5.0)
--- NOTE | 2020-08-21 12:03 | NUR ---
Assessment completed, alert/oriented, vital signs stable, pain at rest is not bad, after PT pain increased and patient requested pain meds, left knee immobilizer in place and ICE applied and leg elevated, heart RRR, distal pulses are palapble, lungs CTA/ no resp.difficulty noteed, he denies other needs at this time
--- NOTE | 2020-08-22 00:28 | NUR ---
Pt assessment completed and charted, alert, oriented, roomair. Meds provided as per JAN, tolerated well. Pt stated that his leg pain is not bad. Pt left leg is elevated, ice pack is on place. Pt is settled on his bed, call light is on reach. No further needs at this time.
[2020-08-22 03:49] VITALS: BP 114/59; PULSE 66; TEMP 97.5
--- NOTE | 2020-08-22 05:55 | NUR ---
Pt had an uneventful night. Morning meds provided as well as PRN pain med. as per pt request. No further needs at this time.
[2020-08-22 07:18] VITALS: BP 112/56; PULSE 69; TEMP 98.3
--- NOTE | 2020-08-22 08:10 | NUR ---
PT ASSESSED PT AOX4 BUT DROWSY, PT DENIES PAIN SAYS THAT PAIN PILL EARLIER HAS RELIEVED PAIN. MEDS HELD UNTIL AFTER DIALYSIS. ORTHO NURSE SAID THAT PT WOULD BE ABLE TO HAVE JASMINA WRAP REMOVED AND KERLIX DRESSING PLACED BEFORE DISCHARGE. PT PLEASANT, PT TAKEN TO DIALYSIS VIA BED.
[2020-08-22 09:32] LABS: BASO % 0.8 % (0.0-2.0); EOS # 0.1 (0.0-0.7); EOS % 2.5 % (0-4.0); GRAN # 2.3 (1.4-6.5); GRAN % 62.6 % (42.2-75.2); LYMPH # 0.8 (1.2-3.4); LYMPH % 20.9 % (20.0-51.0); MEAN CELL VOLUME 105 fl (80.0-100.0); MEAN CORPUSCULAR HGB CONC 31 g/dl (33.0-37.0); MEAN PLATELET VOLUME 10.8 fl (7.4-10.4); MONO # 0.4 (0.1-0.6); MONO % 12.1 % (1.7-9.3); PLATELET COUNT 203 K/mm3 (130-400); REDCELL DISTRIBUTION WIDTH-CV 13.9 % (11.5-14.5)
[2020-08-22 09:38] LABS: HEMOGLOBIN 9.9 g/dl (13.5-18.0); MEAN CORPUSCULAR HEMOGLOBIN 33 pg (27.0-31.0)
[2020-08-22 09:39] LABS: HEMATOCRIT 31.6 % (42.0-52.0)
--- NOTE | 2020-08-22 09:43 | NUR ---
Ame, at [facility], reports that they are unable to accept the patient.
[2020-08-22 09:57] LABS: ALBUMIN 3.8 gm/dL (3.5-5.0); CALCIUM 9.4 mg/dL (8.4-10.2)
[2020-08-22 10:02] LABS: CREATININE, serum 11.8 (0.66-1.25)
[2020-08-22 10:06] LABS: POTASSIUM 6.5 mmol/L (3.4-5.0)
--- NOTE | 2020-08-22 10:11 | NUR ---
POTASSIUM 6.5, SANDIE JALLOH NOTIFIED, PT IN DIALYSIS STILL
--- NOTE | 2020-08-22 11:11 | NUR ---
Octavio, at [facility], reports that they would be able to accept the patient; but would need the COVID results. DUTCH contacted Tuyet at [facility] to follow up on referral. Tuyet requested updates and states that she needs to speak to the patient's PCP, Dr. Bates, but thinks that they should be able to take the patient. DUTCH updated the patient's attending, Dr. Dr. Chu. Dr. Chu contacted Dr. Bates. Dr. Chu reports that Dr. Bates informed him they can take the patient tomorrow, 08/23. SW attempted to contact Wendy at [facility] to inquire if they can provide transportation. SW left her a voicemail. DUTCH contacted and updated the patient's mother, Mallory. Mallory is in agreement to the above plan. DUTCH read the IM form outloud to Mallory. Mallory verbalized understanding and gave SW approval to sign the form on her behalf. SW awaiting a call from [place] and confirmation from Tuyet at [facility].
--- NOTE | 2020-08-22 12:48 | NUR ---
ALL MEDICATIONS GIVEN, NEW AQUACELL PLACED ON L KNEE, PT PLEASANT, AOX4.
[2020-08-22 12:54] VITALS: BP 107/68; PULSE 77
[2020-08-22 16:00] VITALS: BP 128/68; PULSE 82; TEMP 98.1
--- NOTE | 2020-08-22 16:43 | NUR ---
Wendy, at [facility], reports that they do not provide transportation for their residents. She states that they set up rides for them through [employer] (Medicaid). The patient is WBAT. DUTCH staffed with PT, Dmitri. Dmitri worked with the patient this afternoon and he was unable to sit up to the side of the bed. Dmitri recommends an ambulance transfer for the patient. He would not be able to tolerate sitting in a wheelchair for the ride. DUTCH attempted to contact Tuyet at [facility] again to confirm acceptance and to discuss the ambulance transfer. SW left her a voicemail.
--- NOTE | 2020-08-22 17:32 | NUR ---
PT POTASSIUM CAME DOWN TO 4.5 AFTER DIALYSIS, PT DISCHARGING TOMORROW TO [facility], SOCIAL WORK SETTING UP TRANSPORT, PT PLEASANT, AOX4, HAD NORCO TWICE, NO C/O PAIN SINCE, DIALYSIS TODAY. NO OTHER NEEDS.
--- NOTE | 2020-08-22 19:00 | NUR ---
Report received from Evita SOLIS. Pt taken off bedpan and cleaned up at this time. Boosted up in bed by this RN and Evita. Denies other needs at this time. Call light in reach.
[2020-08-22 19:54] VITALS: BP 137/56; PULSE 81; TEMP 98.4
--- NOTE | 2020-08-22 20:21 | NUR ---
Assessment complete. Pt lying in bed at this time. Reports severe pain to left knee. PRN [place] administered. Immobilizing brace in place to LLE. Left knee incision covered with Aquacell dressing, small amount of drainage noted. Two small sores to right lower extremity noted, Bactroban ointment applied. INT to right forearm intact and flushes easily. Bruit audible and thrill palpable to left forearm fistula. Pt denies other needs at this time. Will continue to monitor.
[2020-08-23] VITALS: BP 153/53; PULSE 77; TEMP 97.9
[2020-08-23 04:00] VITALS: BP 118/41; PULSE 68; TEMP 97.8
--- NOTE | 2020-08-23 06:19 | NUR ---
Pt had uneventful shift. Slept for majority of night. Complaint of severe pain to left knee last evening, relieved by Barnard. No complaints for remainder of shift. Asleep in bed at this time.
[2020-08-23 07:35] VITALS: BP 125/53; PULSE 64; TEMP 97.5
[2020-08-23 07:39] LABS: BASO % 1.2 % (0.0-2.0); EOS # 0.1 (0.0-0.7); EOS % 2.4 % (0-4.0); GRAN # 1.8 (1.4-6.5); GRAN % 52.8 % (42.2-75.2); HEMOGLOBIN 10.1 g/dl (13.5-18.0); LYMPH % 28.2 % (20.0-51.0); MEAN CELL VOLUME 104 fl (80.0-100.0); MEAN CORPUSCULAR HEMOGLOBIN 33 pg (27.0-31.0); MEAN CORPUSCULAR HGB CONC 32 g/dl (33.0-37.0); MEAN PLATELET VOLUME 10.4 fl (7.4-10.4); MONO # 0.5 (0.1-0.6); MONO % 14.5 % (1.7-9.3); PLATELET COUNT 206 K/mm3 (130-400); RED BLOOD COUNT 3.06 M/mm3 (4.20-5.60); REDCELL DISTRIBUTION WIDTH-CV 13.8 % (11.5-14.5)
[2020-08-23 07:48] LABS: HEMATOCRIT 31.8 % (42.0-52.0)
[2020-08-23 07:51] LABS: ALBUMIN 3.9 gm/dL (3.5-5.0); CALCIUM 9.8 mg/dL (8.4-10.2); CREATININE, serum 9.85 (0.66-1.25); PHOSPHOROUS 8.8 mg/dL (2.5-4.5)
[2020-08-23 07:54] LABS: POTASSIUM 5.9 mmol/L (3.4-5.0)
--- NOTE | 2020-08-23 09:10 | NUR ---
PT PLEASANT, AOX4, C/O PAIN SO NORCO GIVEN, PT HAD CRITICAL POTASSIUM, SANDIE PROGRESSIVE CARE NURSE NOTIFED, KAYAXOLATE ORDERED AND GIVEN ALONG WITH OTHER MEDICATIONS, ASSESSMENT PERFORMED, FRESH ICE WATER BROUGHT IN ALONG WITH MILK PER PT REQUEST. NO OTHER NEEDS.
--- NOTE | 2020-08-23 09:42 | NUR ---
Tuyet, at [facility], reports that they are able to accept the patient. DUTCH notified Jelly, with Dr. Chu. DUTCH contacted Lionel at [facility]. Lionel states that they would not bill the patient for the ride. The patient is to discharge today, 08/23, to [facility]. Transportation was scheduled at 1300, via [facility]. DUTCH informed the patient, his RN, the patient's father (Ari), and [facility]. They were all agreeable to the time. DUTCH also read the Transfer Consent Form outloud to the patient's father, Ari. Ari verbalized understanding and gave SW approval to sign the form on his behalf. DUTCH updated Wendy at [facility]. No additional needs at this time.
--- NOTE | 2020-08-23 10:20 | NUR ---
PRESSURE DRESSING REMOVED FROM FISTULA AND FISTULA BEGAN TO OOZE BLOOD. YEIMI HOOPER NOTIFIED AND SHE ORDERED TO JUST REDRESS IT WITH 4X4 AND PAPER TAPE.
[2020-08-23 10:40] VITALS: BP 125/53; PULSE 64; TEMP 97.5
--- NOTE | 2020-08-23 11:10 | NUR ---
GAVE REPORT TO MARISSA AT [facility]
[2020-08-23] MEDS ORDERED: NORCO 325 MG-7.1 TAB PO (12:15)
--- NOTE | 2020-08-23 12:20 | NUR ---
IV REMOVED FROM PT, PT BELONGINGS GATHERED, MEDICATIONS BROUGHT UP FROM PHARMACY, NO OTHER NEEDS AT THIS TIME.
[2020-08-23 12:39] VITALS: BP 155/59; PULSE 70; TEMP 97.7
--- NOTE | 2020-08-23 13:10 | NUR ---
PT ESCORTED OUT WITH PT BELONGINGS AND MEDICATIONS VIA STRETCHER AND EMS.
== END 2020-08-23 13:10 | disposition swing bed (61) | DRG 500 ==
LOC: MEDICAL 18:22
PROVIDERS: Nurse Practitioner; Orthopaedic Surgery; ADMIT Internal Medicine Nephrology
PROC: 5A1D70Z Performance of Urinary Filtration, Intermittent, Less than 6 Hours Per Day (ICD-10-PCS; 2020-08-19)
PROC: 0LQR0ZZ Repair Left Knee Tendon, Open Approach (ICD-10-PCS; principal; 2020-08-20 08:00)
DX: S76.112A Strain of left quadriceps muscle, fascia and tendon, initial encounter (principal); N18.6 End stage renal disease; I12.0 Hypertensive chronic kidney disease with stage 5 chronic kidney disease or end stage renal disease; I42.9 Cardiomyopathy, unspecified; Z68.43 Body mass index [BMI] 50.0-59.9, adult; K21.9 Gastro-esophageal reflux disease without esophagitis; F20.9 Schizophrenia, unspecified; M10.9 Gout, unspecified; E78.5 Hyperlipidemia, unspecified; E66.01 Morbid (severe) obesity due to excess calories; F41.1 Generalized anxiety disorder; G47.33 Obstructive sleep apnea (adult) (pediatric); E03.9 Hypothyroidism, unspecified; I48.91 Unspecified atrial fibrillation; D63.1 Anemia in chronic kidney disease; I95.9 Hypotension, unspecified; Z99.2 Dependence on renal dialysis; Z86.73 Personal history of transient ischemic attack (TIA), and cerebral infarction without residual deficits
CPT/HCPCS: G0378; G0379; J0330; J0690; J1100; J1644; J2270; J2405; J2704; J3010; J7030; L1830; L1832; Q5105

== ENCOUNTER 2020-09-28 11:58 | Observation (INO) | payer MEDICARE, MEDICAID ==
[2020-09-28] VITALS (8 sets, daily range): BP systolic 136–156; BP diastolic 68–100; PULSE 68–88; TEMP 68–98
[~2020-09-28] VITALS: Ht 177.8 cm; Wt 155.7 kg
--- NOTE | 2020-09-28 01:00 | NUR ---
Resting eyes closed. No s/s of pain noted.
[~2020-09-28 11:58] MED LIST changes: +BACTRIM DS 8001 TAB PO; -FOSRENOL750 MG PO; +TRIPHROCAPS SOFT1 MG PO
--- NOTE | 2020-09-28 18:45 | NUR ---
To room 328 via bed from PACU. Assessmentn complete. A&Ox3-very drowsy-falling asleep during assessment. VS stable-O2 saturation 94% on O2@2L/NC. Bedside report received from IRMA Oconnor. Oriented patient to room/policy. IV to right AC with NS@100ml/hr. Left forearm fistula covered CDI gauze. Dressing to left knee-bulky white/melodie-CDI. IROM brace on in locked position. Fresh ice pack applied to site. Clear liquid diet provided. Will continue to monitor.
--- NOTE | 2020-09-28 20:00 | NUR ---
More awake at this time. C/O pain to left lower extremity-rating pain 10/10 on pain scale-described as constant throbbing. Morphine given per dr order. Provided a sandwich box with discussion of PO pain medications. WIll monitor.
--- NOTE | 2020-09-28 20:45 | NUR ---
intelligence research specialist ortho-DR. Valdovinos-notified of pain control issues and O2 requirement. Discharge criteria unable to be met. [facility] also calling to see if patient will be discharged. New orders received to admit overnight for observation. Daiana-alf staff notified as well.
--- NOTE | 2020-09-28 21:00 | NUR ---
Still rating pain 10/10 on pain scale-described as constant throbbing with intermittent sharp pains. Has tolerated diet. [place] given per dr order. Will monitor.
--- NOTE | 2020-09-28 22:15 | NUR ---
Called stating pain is still 8/10 to left lower extremity/knee. States it is a constant throbbing-Morphine given per dr order. Will monitor.
--- NOTE | 2020-09-28 23:00 | NUR ---
Pain reassessed-rating pain 8/10 still. Second dose of morphine given per dr order. WIll monitor
[2020-09-29 00:59] VITALS: BP 111/64; PULSE 80; TEMP 97.5
--- NOTE | 2020-09-29 01:50 | NUR ---
Called with c/o pain to left knee described as constant ache and throb. [place] given per dr tijerina. Will monitor.
[2020-09-29 03:35] VITALS: BP 118/60; PULSE 65; TEMP 97.3
--- NOTE | 2020-09-29 03:40 | NUR ---
Called with c/o pain to left knee-rating pain 8/10 on pain scale-described as constant ache with intermittent stabbing pains. Morphine given per dr order. Will continue to monitor.
--- NOTE | 2020-09-29 06:10 | NUR ---
Rested well later this shift. States his pain is currently 0. Left lower extremity continues to be immobilized with IROM brace in locked position. Bulky white/melodie bandage remains CDI. Refusing ice pack-states its to heavy and causes pain. Denies nausea/shortness of breath. VS remained stable. SCD to right lower extremity. Denies needs. Call light in reach. Will monitor.
[2020-09-29 07:23] VITALS: BP 123/46; PULSE 67; TEMP 97.8
--- NOTE | 2020-09-29 08:24 | NUR ---
REPORT CALLED TO NAI SOLIS. JOVANI CAROLINA ROUNDED ON PATEINT AND OK FOR DISCHARGE THIS AM.
--- NOTE | 2020-09-29 09:19 | NUR ---
SPOKE WITH [facility] FOR SKILLED NURSING AND WILL TRANSPORTATION SERVICES REPRESENTATIVE AROUND NOON TODAY. EXPLAINED THIS TO PT AND PT VERBALIZED UNDERSTANDING.
--- NOTE | 2020-09-29 10:53 | NUR ---
PATIENT TAKEN TO FRONT PER WHEEL CHAIR, TRANSPORTATION HAS ARRIVED TO TAKE PT BACK TO SNF.
== END 2020-09-29 10:55 ==
LOC: SDCO 11:58 → JCC 20:30 → SDCO 20:31 → JCC 20:32 → SDCO 09-29 10:55 → JCC 09-29 10:55
PROVIDERS: ADMIT Orthopaedic Surgery
DX: S76.112A Strain of left quadriceps muscle, fascia and tendon, initial encounter (principal); M10.9 Gout, unspecified; E78.1 Pure hyperglyceridemia; K21.9 Gastro-esophageal reflux disease without esophagitis; I13.10 Hypertensive heart and chronic kidney disease without heart failure, with stage 1 through stage 4 chronic kidney disease, or unspecified chronic kidney disease; N18.9 Chronic kidney disease, unspecified; D63.8 Anemia in other chronic diseases classified elsewhere; F41.9 Anxiety disorder, unspecified; E78.5 Hyperlipidemia, unspecified; F70 Mild intellectual disabilities; G47.33 Obstructive sleep apnea (adult) (pediatric); I42.8 Other cardiomyopathies; F20.9 Schizophrenia, unspecified; I48.91 Unspecified atrial fibrillation; E66.01 Morbid (severe) obesity due to excess calories; Z68.42 Body mass index [BMI] 45.0-49.9, adult; Z99.2 Dependence on renal dialysis; Z88.8 Allergy status to other drugs, medicaments and biological substances; Z79.890 Hormone replacement therapy; Z79.899 Other long term (current) drug therapy; Z96.89 Presence of other specified functional implants
CPT/HCPCS: G0378; J0690; J2270; J2370; J2405; J2704; J3010; J7030; J7050

== ENCOUNTER 2020-12-05 09:36 | Inpatient (IN) | payer MEDICARE, MEDICAID ==
[~2020-12-05] VITALS: Ht 182.9 cm; Wt 137.1 kg
[2020-12-05 12:01] VITALS: BP 169/94; PULSE 58; TEMP 97.5
[2020-12-05] MEDS ORDERED: PROTONIX 40MG T40 MG PO (12:25)
[2020-12-05] MEDS ORDERED: FLONASEALLERGY NS (12:31)
[2020-12-05] MEDS ORDERED: ZESTRIL 20MG TA20 MG PO (12:38)
[2020-12-05] MEDS ORDERED: NORCO 325 MG-51 TAB PO (12:42)
[2020-12-05 14:25] LABS: BASO % 0.8 % (0.0-2.0); EOS # 0.1 (0.0-0.7); EOS % 2.8 % (0-4.0); GRAN # 2.4 (1.4-6.5); GRAN % 66.6 % (42.2-75.2); HEMOGLOBIN 10.8 g/dl (13.5-18.0); LYMPH # 0.9 (1.2-3.4); LYMPH % 24.3 % (20.0-51.0); MEAN CELL VOLUME 99 fl (80.0-100.0); MEAN CORPUSCULAR HEMOGLOBIN 29 pg (27.0-31.0); MEAN CORPUSCULAR HGB CONC 29 g/dl (33.0-37.0); MEAN PLATELET VOLUME 10.6 fl (7.4-10.4); MONO # 0.2 (0.1-0.6); MONO % 4.7 % (1.7-9.3); PLATELET COUNT 216 K/mm3 (130-400); RED BLOOD COUNT 3.73 M/mm3 (4.20-5.60); REDCELL DISTRIBUTION WIDTH-CV 18.5 % (11.5-14.5)
[2020-12-05 14:27] LABS: CALCIUM 9.4 mg/dL (8.4-10.2); CREATININE, serum 8.8 (0.66-1.25); POTASSIUM 4.7 mmol/L (3.4-5.0)
[2020-12-05 14:29] LABS: HEMATOCRIT 36.9 % (42.0-52.0)
--- NOTE | 2020-12-05 16:19 | NUR ---
RECEIEVED REPORT FROM [facility] NURSE ROSY. PT ARRIVED VIA STRETCHER TO ROOM 348, WAS TRANSFERRED FROM STRETCHER TO BED WITH THIS NURSE AND HELP OF TWO TRANSPORT STAFF. PT ARRIVED AROUND 1115, DENIED PAIN AT THIS TIME. PT WAS ORIENTED TO UNIT, ASSESSED, MADE COMFORTABLE AND THIS NURSE STARTED ON MED REC. ABDULLAHI SOLIS, FINISHED MED REC. PT RECEIEVING DIALYSIS AT THIS TIME.
--- NOTE | 2020-12-05 18:02 | NUR ---
PT HAD MEDIUM SOFT FORMED BM ON BEDPAN AFTER DIALYSIS. SCD TO RLE, NOT LEFT BECAUSE OF LEG IMMOBILIZER. PT SET UP FOR DINNER. COMFORTABLE WITH PILLOW UNDER RT KNEE. DENIES PAIN AT THIS TIME.
[2020-12-05 20:08] VITALS: BP 152/62; PULSE 86; TEMP 98.7
--- NOTE | 2020-12-05 21:00 | NUR ---
PATIENT RESTING IN BED WITH NO COMPLAINTS OF PAIN. NIGHT MEDICATIONS GIVEN. PATIENT HAS MET HIS FLUID RESTRICTION AND IS AWARE. BED ALARM IS ON AND CALL LIGHT IN REACH.
[2020-12-06 00:15] VITALS: BP 156/68; PULSE 91; TEMP 97.9
--- NOTE | 2020-12-06 04:31 | NUR ---
PATIENT ATTEMPTED TO USE BEDPAN TO HAVE A BOWEL MOVEMENT. STATED IT WAS JUST GAS.
[2020-12-06 07:32] VITALS: BP 170/75; PULSE 62; TEMP 97.3
[2020-12-06 08:02] LABS: BASO % 0.6 % (0.0-2.0); EOS # 0.2 (0.0-0.7); EOS % 3.2 % (0-4.0); GRAN # 3.1 (1.4-6.5); GRAN % 66.4 % (42.2-75.2); HEMATOCRIT 38.1 % (42.0-52.0); HEMOGLOBIN 11.1 g/dl (13.5-18.0); LYMPH % 20.4 % (20.0-51.0); MEAN CELL VOLUME 100 fl (80.0-100.0); MEAN CORPUSCULAR HEMOGLOBIN 29 pg (27.0-31.0); MEAN CORPUSCULAR HGB CONC 29 g/dl (33.0-37.0); MEAN PLATELET VOLUME 11.1 fl (7.4-10.4); MONO # 0.4 (0.1-0.6); MONO % 8.8 % (1.7-9.3); PLATELET COUNT 228 K/mm3 (130-400); REDCELL DISTRIBUTION WIDTH-CV 18.6 % (11.5-14.5)
[2020-12-06 08:13] LABS: ALBUMIN 3.6 gm/dL (3.5-5.0); CALCIUM 9.4 mg/dL (8.4-10.2); CREATININE, serum 7.99 (0.66-1.25); PHOSPHOROUS 5.5 mg/dL (2.5-4.5); POTASSIUM 5.2 mmol/L (3.4-5.0)
--- NOTE | 2020-12-06 10:25 | NUR ---
PT RESTING IN BED. EATING DRINKING WITH NO N/V. DIALYSIS YESTERDAY. PT TO HAVE MRI OF KNEE TODAY. PLAN ON DIALYSIS TOMORROW. AM MEDS GIVEN ORDERED. PT HAS HAD BOWEL MOVEMENTS IN BEDPAN.
--- NOTE | 2020-12-06 11:00 | NUR ---
Initial visit; Patient thanked Materials Engineer for looking in on him. Ricardo states he is doing better. Materials Engineer offered God's blessings.
[2020-12-06 11:21] VITALS: BP 177/81; PULSE 62; TEMP 97.3
[2020-12-06 15:28] VITALS: BP 181/80; PULSE 64; TEMP 97.5
[2020-12-06 21:11] VITALS: BP 160/72; PULSE 65; TEMP 98.6
--- NOTE | 2020-12-06 21:16 | NUR ---
Pt assessment complete. Pt is sitting in bed upon entry, asking for a sandwich-provided. He denies pain at this time. No SOB. No N/V. Brace in place to LLE and melodie wrap on to RLE. Pt states he is going to have a knee fixed tomorrow just unsure which one. No needs at this time. Call light within reach.
[2020-12-07] VITALS (12 sets, daily range): BP systolic 123–185; BP diastolic 66–88; PULSE 61–89; TEMP 97.2–98
[2020-12-07 07:44] LABS: BASO % 0.6 % (0.0-2.0); EOS # 0.1 (0.0-0.7); EOS % 2.5 % (0-4.0); GRAN # 3.1 (1.4-6.5); GRAN % 64.8 % (42.2-75.2); HEMATOCRIT 37.1 % (42.0-52.0); HEMOGLOBIN 10.9 g/dl (13.5-18.0); MEAN CELL VOLUME 98 fl (80.0-100.0); MEAN CORPUSCULAR HEMOGLOBIN 29 pg (27.0-31.0); MEAN CORPUSCULAR HGB CONC 29 g/dl (33.0-37.0); MEAN PLATELET VOLUME 12.1 fl (7.4-10.4); MONO # 0.4 (0.1-0.6); MONO % 9.3 % (1.7-9.3); PLATELET COUNT 245 K/mm3 (130-400); RED BLOOD COUNT 3.78 M/mm3 (4.20-5.60); REDCELL DISTRIBUTION WIDTH-CV 18.4 % (11.5-14.5)
[2020-12-07 07:56] LABS: ALBUMIN 3.6 gm/dL (3.5-5.0); CALCIUM 9.5 mg/dL (8.4-10.2); CREATININE, serum 9.87 (0.66-1.25); PHOSPHOROUS 6.2 mg/dL (2.5-4.5); POTASSIUM 5.7 mmol/L (3.4-5.0)
--- NOTE | 2020-12-07 09:21 | NUR ---
PT OT DIALYSIS AT THIS TIME. PT TO SURGERY THIS PM. CONTACTED [facility] TO PLACE IV PRIOR TO SURGERY.
--- NOTE | 2020-12-07 15:50 | NUR ---
PT TO ROOM 348 PER BED WITH REPORT FROM STAS SOLIS @1634. PT IS A/O X3 LUNGS CLEAR, BOWEL SOUNDS PRESENT. BLE IN IROM BRACES. IV TO PUMP.
--- NOTE | 2020-12-07 16:15 | NUR ---
Patient tolerated 3hr HD tx well, removed 3.7 kg of fluid today. Next tx planned for Saturday12/09/20.
--- NOTE | 2020-12-07 17:35 | NUR ---
Ground Transportation Operator contacted patient's mother/DPOA, Mallory (ph#[phone]) to discuss discharge planning. Patient has been living at [facility], however they are unable to meet his needs. Mallory states she is aware patient will need retirement placement as [facility] is no longer able to meet patient's needs. Patient has DPOA documents in EMR which designate Mallory. Patient normally utilizes a walker for ambulation. PT/OT have been ordered. Mallory would like referrals sent to [facility] in [place] and [facility] in [place]. SW faxed referrals.
--- NOTE | 2020-12-07 23:49 | NUR ---
Pt currently resting in bed. Pt did wake up earlier and stated he was having pain in his leg. Pt was given pain medicaiton at this time. Pt has his call light within reach and his bed is in lowest position.
[2020-12-08 00:41] VITALS: BP 125/66; PULSE 79; TEMP 97.2
[2020-12-08 04:00] VITALS: BP 141/68; PULSE 63; TEMP 98.2
--- NOTE | 2020-12-08 04:00 | NUR ---
Pt resting in bed. Pt does wake up when you check in on him but has no concern at this time.
--- NOTE | 2020-12-08 07:24 | NUR ---
Reported off to IRMA Bridges. Pt resting in bed and has his call light within reach. Pt was reminded to call when he needs to use the bedpan.
[2020-12-08 07:41] VITALS: BP 125/67; PULSE 64; TEMP 97.8
--- NOTE | 2020-12-08 09:00 | NUR ---
JAYLEN NOTIFIED THAT 3 SEPERATE LAB PERSONNEL ATTEMPTED TO DRAW THE PATIENTS MORNING LABS WITHOUT SUCCESS. THIS NURSE WILL CALL DURING THE AFTERNOON TO SEE IF THERE IS SOMEONE FROM THE NEXT SHIFT THAT CAN ATTEMPT. JAYLEN WILL UPDATE DR. CHEN.
[2020-12-08 11:07] VITALS: BP 143/73; PULSE 65; TEMP 97.4
[2020-12-08 16:00] VITALS: BP 130/60; PULSE 63; TEMP 98.4
--- NOTE | 2020-12-08 16:52 | NUR ---
Heel Seat Fitter Machine spoke with Clarisa at [facility] who advised they have had patient before and they would be looking to accept however there is concern about patient being non weight bearing and needing dialysis. Clarisa states she is going to talk with the dialysis unit in [place] tomorrow then follow up with DUTCH. Clarisa has also been collaborating with their sister facility, [facility] in [place] as patient may be a better fit for their facility as they are closer to Dialysis. DUTCH had left a message for Jaja at [facility] earlier in the day. DUTCH will continue to follow.
--- NOTE | 2020-12-08 19:00 | NUR ---
PATIENT HAD UNEVENTFUL SHIFT. PRN PAIN MEDICATION PROVIDED NEEDED. REPORT GIVEN TO ONCOMING NURSE.
[2020-12-08 19:45] VITALS: BP 146/67; PULSE 63; TEMP 97.7
--- NOTE | 2020-12-08 21:00 | NUR ---
PATIENT RESTING IN BED. NO COMPLAINTS OF PAIN. IMMOBILIZER ON LEFT AND RIGHT LEG. PATIENT IS AGREEABLE TO FLUID RESTRICTION. NO OTHER NEEDS AT THIS TIME. CALL LIGHT IS IN REACH.
[2020-12-09 00:11] VITALS: BP 135/65; PULSE 75; TEMP 97.9
[2020-12-09 04:44] VITALS: BP 136/54; PULSE 78; TEMP 97.6
[2020-12-09 08:02] VITALS: BP 146/64; PULSE 66; TEMP 97.3
--- NOTE | 2020-12-09 10:00 | NUR ---
PT RESTING IN BED, ATE 100% OF BREAKFAST. THERAPY IN SAT ON SIDE OF BED WITH ASSIST OF 2. PT REPORTING PAIN AT 10/10 WHEN SITTING ON BED SIDE. SAT FOR A COUPLE MINS. THEN RETURNED TO BED IN A RECLINED POSTION. THERAPY AND NURSING EDUCATED PT ON IMPORTANCE OF MOVEMENT AND NOT LYING IN BED ALL DAY. PT SHOWED LITTLE INTREST IN ACTIVITY AT THIS TIME.
[2020-12-09 12:24] VITALS: BP 118/59; PULSE 67; TEMP 97.5
[2020-12-09 13:37] LABS: BASO % 0.7 % (0.0-2.0); EOS # 0.1 (0.0-0.7); EOS % 2.2 % (0-4.0); GRAN % 67.7 % (42.2-75.2); HEMOGLOBIN 10.6 g/dl (13.5-18.0); LYMPH # 0.8 (1.2-3.4); LYMPH % 18.9 % (20.0-51.0); MEAN CELL VOLUME 99 fl (80.0-100.0); MEAN CORPUSCULAR HEMOGLOBIN 30 pg (27.0-31.0); MEAN CORPUSCULAR HGB CONC 30 g/dl (33.0-37.0); MEAN PLATELET VOLUME 11.5 fl (7.4-10.4); MONO # 0.4 (0.1-0.6); MONO % 9.4 % (1.7-9.3); PLATELET COUNT 214 K/mm3 (130-400); RED BLOOD COUNT 3.59 M/mm3 (4.20-5.60); REDCELL DISTRIBUTION WIDTH-CV 17.9 % (11.5-14.5)
[2020-12-09 13:38] LABS: HEMATOCRIT 35.5 % (42.0-52.0)
[2020-12-09 13:50] LABS: ALBUMIN 3.4 gm/dL (3.5-5.0); CALCIUM 9.3 mg/dL (8.4-10.2)
[2020-12-09 13:56] LABS: CREATININE, serum 10.51 (0.66-1.25)
[2020-12-09 13:57] LABS: POTASSIUM 6.2 mmol/L (3.4-5.0)
--- NOTE | 2020-12-09 14:01 | NUR ---
CRITICAL POTASSIUM LEVEL CALLED TO MARIA ISABEL SOLIS. SHE HAS INFORMED DR. CHEN.
[2020-12-09 16:10] VITALS: BP 124/55; PULSE 68; TEMP 97.5
--- NOTE | 2020-12-09 16:34 | NUR ---
Inspector Firearms faxed updates to [facility] and [facility], which are sister facilities. DUTCH spoke with Clarisa at [facility] who advised she spoke wtih the dialysis clinic in [place] and they said they don't do a lift and cannot transfer patient. Clarisa asked if patient can do slide board transfers. Clarisa advised either their facility or [facility] are looking to accept if dialysis concerns can be addressed. DUTCH contacted Dr. Chu to give this update. DUTCH also spoke with [facility] who did not think patient could perform slide board transfers.
--- NOTE | 2020-12-09 18:32 | NUR ---
Patient tolerated HD tx, removed 3.8 L of fluid. Patient's next tx tomorrow Saturday12/10/20 @ 0830 for extra fluid.
[2020-12-09 19:30] VITALS: BP 115/55; PULSE 70; TEMP 97.8
--- NOTE | 2020-12-09 22:09 | NUR ---
PATIENT RESTING IN BED WITH IMMOBILIZERS ON BOTH LEGS. PATIENT HAS NO COMPLAINTS OF PAIN. NIGHT MEDS TAKEN. NO OTHER NEEDS AT THIS TIME. CALL LIGHT IN PLACE AND BED ALARM ON.
[2020-12-10 00:20] VITALS: BP 111/51; PULSE 70; TEMP 97.6
[2020-12-10 04:23] VITALS: BP 111/60; PULSE 65; TEMP 97.7
--- NOTE | 2020-12-10 05:45 | NUR ---
PATIENT COMPLAINING OF SOME PAIN TO HIS KNEE. NORCO ADMINISTERED. PATIENT HAS NO OTHER NEEDS AT THIS TIME.
[2020-12-10 07:30] VITALS: BP 140/73; PULSE 68; TEMP 97.6
[2020-12-10 09:22] LABS: ALBUMIN 3.5 gm/dL (3.5-5.0); CALCIUM 9.6 mg/dL (8.4-10.2); CREATININE, serum 7.85 (0.66-1.25); POTASSIUM 5.3 mmol/L (3.4-5.0)
[2020-12-10 09:24] LABS: BASO % 0.6 % (0.0-2.0); EOS # 0.1 (0.0-0.7); EOS % 2.8 % (0-4.0); GRAN # 3.5 (1.4-6.5); GRAN % 68.6 % (42.2-75.2); HEMOGLOBIN 10.7 g/dl (13.5-18.0); LYMPH # 0.9 (1.2-3.4); LYMPH % 17.5 % (20.0-51.0); MEAN CELL VOLUME 98 fl (80.0-100.0); MEAN CORPUSCULAR HEMOGLOBIN 29 pg (27.0-31.0); MEAN CORPUSCULAR HGB CONC 30 g/dl (33.0-37.0); MONO # 0.5 (0.1-0.6); MONO % 9.1 % (1.7-9.3); PLATELET COUNT 240 K/mm3 (130-400); RED BLOOD COUNT 3.67 M/mm3 (4.20-5.60); REDCELL DISTRIBUTION WIDTH-CV 17.8 % (11.5-14.5)
[2020-12-10 09:27] LABS: HEMATOCRIT 36.1 % (42.0-52.0)
--- NOTE | 2020-12-10 10:04 | NUR ---
PT RESTING IN BED RECIEVING DIALYSIS TODAY. AM MEDS GIVEN, PRN PO MEDS FOR PAIN. PT EATING AND DRINKING WITH NO N/V. PT HAS BILATERAL BRACES ON.
--- NOTE | 2020-12-10 11:04 | NUR ---
PT will not discharge ovr the weekend. Please follow up on Saturday.
--- NOTE | 2020-12-10 11:42 | NUR ---
Patient tolerated 2 hr extra tx for fluid today. Removed 2 L of fluid. Next tx planned for Saturday12/12/19 @ 0730.
[2020-12-10 12:40] VITALS: BP 130/43; PULSE 100; TEMP 98.3
--- NOTE | 2020-12-10 13:52 | NUR ---
PT ATE 100 % OF BREAKFAST AND ORDERED A SANDWICH TRAY EATING 100% OF THAT.
[2020-12-10 16:03] VITALS: BP 128/66; PULSE 84; TEMP 97.5
[2020-12-10 19:33] VITALS: BP 164/71; PULSE 79; TEMP 97.9
--- NOTE | 2020-12-10 21:57 | NUR ---
PATIENT A LITTLE CONFUSED TONIGHT. TOOK GOWN OFF AND KEEPS MOVING HIS BED ALL THE WAY UP. LOCKED CONTROLS ON HIS BED AND BED ALARM ON. PATIENT HAS NO OTHER NEEDS AT THIS TIME. CALL LIGHT IN REACH.
[2020-12-11] VITALS (8 sets, daily range): BP systolic 137–170; BP diastolic 57–74; PULSE 64–86; TEMP 97–98.6
--- NOTE | 2020-12-11 05:44 | NUR ---
PATIENT'S BLOOD PRESSURE ELEVATED. GAVE HYDRALAZINE PER ORDERS.
--- NOTE | 2020-12-11 06:31 | NUR ---
PATIENT'S BP IS NOW 150/63.
--- NOTE | 2020-12-11 08:16 | NUR ---
PT SLEEPING IN BED AFTER EATING BREAKFAST. VSS, PT IS A/O X3. PT IS HIGH FUNCTION SPECIAL NEEDS. FLUID RESTRICTION IN PLACE AND PT UNDERSTANDS IMPORTANCE OF FLUID RESTRICTION. DRESSINGS TO BILATTERAL KNEES CDI WITH KNEE IMMOBILIZERS IN PLACE. PO PAIN MEDS CONTROLLING PAIN.
--- NOTE | 2020-12-11 10:50 | NUR ---
SW spoke with patient's RN. Patient is currenly requiring two staff to assist with movement. Patient is unable to perform slide board transfers. Patient can dangle in bed with staff and PT for "a couple of minutes" before needing to be lie down again. Social work will follow up with placement needs Tuesday 12/12.
--- NOTE | 2020-12-11 16:30 | NUR ---
NURSING AND DR. CHEN HAD MOVTIVATIONAL CONVERSATION WITH PT. PT AGREES TO WORK WITH THERAPY IN TRANSFERRING TO AND FROM WHEEL CHAIR EXTENSIVELY ON SATURDAY AND POSSIBLE DISCHARGE LATER TO SNF.
--- NOTE | 2020-12-11 22:47 | NUR ---
Pt resting in bed. Pt took all medicaitons well. Pt was given about 100 ml of water at this time to take with his pills. Pt has his call light within reach and his bed is in lowest position.
--- NOTE | 2020-12-12 01:53 | NUR ---
Pt currently resting in bed. Pt has his call light within reach and his bed is in lowest position.
[2020-12-12 04:22] VITALS: BP 137/66; PULSE 68; TEMP 98.2
--- NOTE | 2020-12-12 05:55 | NUR ---
Pt resting in bed at this time. Pt has his call light within reach and his bed is in lowest position.
[2020-12-12 07:44] VITALS: BP 137/61; PULSE 68; TEMP 97.8
--- NOTE | 2020-12-12 09:15 | NUR ---
AM MEDICATIONS ADMINISTERED AT THIS TIME. SHIFT ASSESSMENT COMPLETE. IROM BRACES TO BLE AND LOCKED AT 0. PATIENT DENIES PAIN AT THIS TIME. WILL CONTINUE TO MONITOR.
[2020-12-12 11:45] VITALS: BP 124/63; PULSE 74; TEMP 97.6
--- NOTE | 2020-12-12 13:05 | NUR ---
PATIENT TAKEN TO DIALYSIS VIA BED.
[2020-12-12 13:28] LABS: BASO % 0.6 % (0.0-2.0); EOS # 0.1 (0.0-0.7); EOS % 2.5 % (0-4.0); GRAN # 3.6 (1.4-6.5); GRAN % 70.3 % (42.2-75.2); HEMOGLOBIN 10.9 g/dl (13.5-18.0); LYMPH # 0.9 (1.2-3.4); LYMPH % 16.5 % (20.0-51.0); MEAN CELL VOLUME 98 fl (80.0-100.0); MEAN CORPUSCULAR HEMOGLOBIN 29 pg (27.0-31.0); MEAN CORPUSCULAR HGB CONC 30 g/dl (33.0-37.0); MEAN PLATELET VOLUME 11.1 fl (7.4-10.4); MONO # 0.5 (0.1-0.6); MONO % 8.9 % (1.7-9.3); PLATELET COUNT 258 K/mm3 (130-400); RED BLOOD COUNT 3.73 M/mm3 (4.20-5.60); REDCELL DISTRIBUTION WIDTH-CV 17.5 % (11.5-14.5)
[2020-12-12 13:37] LABS: CALCIUM 9.6 mg/dL (8.4-10.2)
[2020-12-12 13:42] LABS: HEMATOCRIT 36.5 % (42.0-52.0)
[2020-12-12 13:43] LABS: CREATININE, serum 11.14 (0.66-1.25)
[2020-12-12 13:47] LABS: POTASSIUM 6.5 mmol/L (3.4-5.0)
[2020-12-12 16:00] VITALS: BP 137/69; PULSE 76; TEMP 97.8
--- NOTE | 2020-12-12 16:30 | NUR ---
PATIENT ARRIVED BACK TO ROOM 348 FROM DIALYSIS.
--- NOTE | 2020-12-12 16:30 | NUR ---
Patient tolerated HD tx, removed 4 L of fluid today.
--- NOTE | 2020-12-12 16:52 | NUR ---
Benefits Consulting Analyst collaborated with Dr. Chu who advised he is arranging for a micaela lift at the [facility] office, meaning patient can be discharged once placement is arranged. Patient to have dialysis this afternoon. DUTCH contacted Khadijah at [facility] who advised their sister facility, [facility] will be the accepting facility. DUTCH contacted Jaja at [facility] who confirmed they can accept tomorrow, however do not have transportation. Jaja states they would be agreeable to pay for medical transport for the patient. DUTCH contacted [facility] and they cannot accomodate trip from [place] to [place]. DUTCH contacted Ric at [facility] in [place] and they would charge $1,215 and require payment up front. DUTCH contacted Jeanne at [facility] who advised they may not be able to do the trip depending on weather. [facility] would charge about $700 and would also require payment up front. DUTCH contacted patient's father, Berny Kent to provide an update. Berny is agreeable to placement at [facility]. DUTCH will continue to follow and work on arrangements for transportation.
--- NOTE | 2020-12-12 17:34 | NUR ---
PATIENT REPORTING THAT HIS LEGS ARE HURTING HIM. PO PAIN MEDICATION ADMINISTERED AT THIS TIME. CALL LIGHT WITHIN REACH. WILL REPORT OFF TO ONCOMING NURSE.
--- NOTE | 2020-12-12 19:30 | NUR ---
DAY SHIFT NURSE NOTIFIED MARIA ISABEL DIALYSIS NURSE, ABOUT PATIENT'S POTASSIUM. NOTIFIED.
--- NOTE | 2020-12-12 21:00 | NUR ---
PM MEDICATIONS GIVEN. PATIENT REPORTS NO PAIN. IMMOBILIZERS ON BOTH LEGS. PATIENT HAS NO OTHER NEEDS AT THIS TIME. CALL LIGHT IN REACH.
[2020-12-12 21:40] VITALS: BP 106/55; PULSE 72; TEMP 97.8
[2020-12-13 00:59] VITALS: BP 117/48; PULSE 65; TEMP 97.4
[2020-12-13 04:31] VITALS: BP 109/53; PULSE 67; TEMP 97.8
[2020-12-13 07:12] VITALS: BP 111/51; PULSE 65; TEMP 98.6
[2020-12-13 11:31] VITALS: BP 111/51; PULSE 65; TEMP 98.6
--- NOTE | 2020-12-13 11:33 | NUR ---
Neurology Teacher collaborated with Larry at [facility] and Jaja at [facility] to arrange transportation for 1130. Both Larry and Jaja confirmed that [facility] will pay for the cost of transportation. DUTCH completed Patient Transfer Authorization form and placed on patient's chart. DUTCH met with patient to notify him that [facility] will pick him up at 1130 to take him to [facility] in [place]. DUTCH also contacted patient's father, Berny to notify him of discharge time. DUTCH faxed discharge orders to Jaja at [facility]. No additional needs at this time.
--- NOTE | 2020-12-13 11:39 | NUR ---
PATIENTS RIGHT AC INT DISCONTINUED PER PENDING DISCHARGE. TIP INTACT. PATIENT TOLERATED WELL.
--- NOTE | 2020-12-13 11:47 | NUR ---
PATIENT REPORT CALLED TO IRMA GARZA AT [facility] IN [place], [place]. PATIENT TRANSFERRED VIA EMS.
--- NOTE | 2020-12-14 08:48 | NUR ---
CALLED PATIENT'S FATHER REGUARDING HOME MEDICATIONS LEFT IN OUR PHARMACY. FAMILY OR FACILITY TO COME GET THEM.
== END 2020-12-13 11:34 | DRG 500 ==
LOC: SURG 09:36
PROVIDERS: Nurse Practitioner; ADMIT Internal Medicine Nephrology
PROC: 0LQL0ZZ Repair Right Upper Leg Tendon, Open Approach (ICD-10-PCS; principal; 2020-12-05)
PROC: 5A1D70Z Performance of Urinary Filtration, Intermittent, Less than 6 Hours Per Day (ICD-10-PCS; 2020-12-05)
DX: S76.111A Strain of right quadriceps muscle, fascia and tendon, initial encounter (principal); N18.6 End stage renal disease; I12.0 Hypertensive chronic kidney disease with stage 5 chronic kidney disease or end stage renal disease; I42.8 Other cardiomyopathies; Z68.41 Body mass index [BMI] 40.0-44.9, adult; K21.9 Gastro-esophageal reflux disease without esophagitis; G47.33 Obstructive sleep apnea (adult) (pediatric); F20.9 Schizophrenia, unspecified; M10.9 Gout, unspecified; Z86.73 Personal history of transient ischemic attack (TIA), and cerebral infarction without residual deficits; Z99.2 Dependence on renal dialysis; E78.5 Hyperlipidemia, unspecified; E66.01 Morbid (severe) obesity due to excess calories; F41.1 Generalized anxiety disorder; M25.562 Pain in left knee; E03.9 Hypothyroidism, unspecified; I48.91 Unspecified atrial fibrillation; D63.1 Anemia in chronic kidney disease; Z86.16 Personal history of COVID-19; W19.XXXA Unspecified fall, initial encounter
CPT/HCPCS: G0378; J0360; J0690; J1100; J1170; J1644; J2405; J2704; J3010; J7030; L1832; Q5105

== ENCOUNTER 2021-06-12 16:27 | Inpatient (IN) | payer MEDICARE, MEDICAID ==
[~2021-06-12] VITALS: Ht 182.9 cm; Wt 142.8 kg
[~2021-06-12 16:27] MED LIST changes: +FLONASEALLERGY NS; +NORCO 325 MG-51 TAB PO; +PROTONIX 40MG T40 MG PO; +ZESTRIL 20MG TA20 MG PO; -ZOLOFT 100MG100 MG PO; +ZOLOFT 50MG50 MG PO
[2021-06-12 19:35] VITALS: BP 131/77; PULSE 78; TEMP 97.3
[2021-06-12] MEDS ORDERED: KALEXATE1 PDR PO (21:17)
[2021-06-12] MEDS ORDERED: CYTOMEL 2525 MCG/TAB PO (21:19)
[2021-06-12] MEDS ORDERED: RENVELA800 MG PO (21:30)
[2021-06-12] MEDS ORDERED: TYLENOL 500MG500 MG PO (21:32)
--- NOTE | 2021-06-12 21:36 | NUR ---
Medication list received from long term. Updated med rec, and called to Dr. Chu.
[2021-06-13 00:12] VITALS: BP 151/71; PULSE 75; TEMP 98.3
[2021-06-13 05:05] VITALS: BP 149/95; PULSE 55; TEMP 97.8
--- NOTE | 2021-06-13 06:24 | NUR ---
Pt admitted at start of shift. Pt allergies confirmed and med rec completed. Initial pt assessment performed. Pt is weak when transferring, 2 person assist needed for bathroom privileges using commode. Pt had one BM this shift, cleaned with personal wipes. Pt has delayed verbal response noted, but able to answer orientation questions and is easily reoriented. Pt's right hand hvac service tech noted to be weaker than left. Fall precautions observed. Pt free from injury this shift.
[2021-06-13 07:54] VITALS: BP 155/78; PULSE 54; TEMP 98.6
[2021-06-13 08:12] LABS: BASO % 0.7 % (0.0-2.0); EOS # 0.1 (0.0-0.7); GRAN # 2.5 (1.4-6.5); GRAN % 61.7 % (42.2-75.2); HEMOGLOBIN 13.2 g/dl (13.5-18.0); LYMPH % 24.2 % (20.0-51.0); MEAN CELL VOLUME 105 fl (80.0-100.0); MEAN CORPUSCULAR HEMOGLOBIN 34 pg (27.0-31.0); MEAN CORPUSCULAR HGB CONC 32 g/dl (33.0-37.0); MEAN PLATELET VOLUME 11.6 fl (7.4-10.4); MONO # 0.4 (0.1-0.6); MONO % 10.2 % (1.7-9.3); PLATELET COUNT 151 K/mm3 (130-400); RED BLOOD COUNT 3.91 M/mm3 (4.20-5.60); REDCELL DISTRIBUTION WIDTH-CV 13.8 % (11.5-14.5)
--- NOTE | 2021-06-13 08:34 | NUR ---
we are taking the patient to dialysis a this time via bed
[2021-06-13 09:20] LABS: BILIRUBIN,TOTAL 0.5 mg/dL (0.0-1.0); CALCIUM 9.8 mg/dL (8.4-10.2); CREATININE, serum 11.33 (0.66-1.25); TOTAL PROTEIN 6.7 gm/dL (6.4-8.2)
[2021-06-13 09:25] LABS: POTASSIUM 6.4 mmol/L (3.4-5.0)
--- NOTE | 2021-06-13 09:27 | NUR ---
Assessment completed, drowsy but arousable, he denies pain, vital signs stable, lab has been having trouble drawing him and were unable to obtain blood samples/ i kiarrafiied RuthRN in dialysis that way she can get blood when she accesses his fistula for HD, he is SR/SB on tele, distal pulses are palapble, no resp.difficulty noted, he is in dialysis now
--- NOTE | 2021-06-13 10:40 | NUR ---
The patient is in dialysis. DUTCH contacted the patient's father, Ari (ph#[phone]), to discuss discharge plan. The patient resides at [facility] in [place] for long-term care. His PCP is Dr. Sonny Bates and his DPOA-HC is in EMR and it designates his parents: Ari and Mallory (ph#[phone]). Ari reports that the plan is for the patient to return back to [facility] upon discharge. He states that they have updated the patient's DPOA-HC and added the patient's sister, Bernadette. He states that they should have a copy of the document at home. DUTCH contacted and faxed updates to Beth at [facility]. Beth confirms that they will take the patient back upon discharge. SW to continue to follow. *Discharge plan: [facility]*
--- NOTE | 2021-06-13 12:33 | NUR ---
Patient tolerated HD tx with 3L fluid removal & prescribed 1k bath for elevated K level today. Next planned HD tx pending AM labs tomorrow, Saturday06/14/21.
[2021-06-13 16:40] VITALS: BP 137/70; PULSE 71; TEMP 98.4
[2021-06-13 19:51] VITALS: BP 119/64; PULSE 72; TEMP 97.4
--- NOTE | 2021-06-13 22:21 | NUR ---
Pt drowsy during assessment arousable to name and vocal cues. Oriented to name and location. The other orientation questions pt responsed with "Uh, I don't know." Pt denies pain at this time. Pt has bruising on right elbow noted, possible from fall prior to hospitalization. Pt's IV flushed with 10mls due to blood noted in tubing. No signs of infiltration or phlebitis noted. Pt had prior scar noted under umbilicus is fully healed. Pt's fistula was auscultated with bruit heard and thrill palpated. Pt's fistula covered with gauze from AM dialysis. Pt also has scar on left knee that is fully healed. Pt has scds on. Pt has call light in place. Pt's father called for update, pt denied wanting to speak with caller at this time.
--- NOTE | 2021-06-13 22:57 | NUR ---
Pharmacy notified about potential interaction in JAN by IRMA Mccoy. Verified patient able to take medications per orders. Medication administered by IRMA Mccoy.
[2021-06-14] VITALS (7 sets, daily range): BP systolic 111–136; BP diastolic 54–73; PULSE 58–70; TEMP 97.4–98.6
--- NOTE | 2021-06-14 04:32 | NUR ---
Pt drowsy this shift, easily aroused. Pt unable to answer situation and time orientation questions stating "I don't know" able to answer to person and place. Fluid restrictions and fall precautions observed. Pt VS remained stable during assessments. Pt able to express concerns freely. Pt free from injury this shift. Pt did not attempt to get out of bed this shift.
--- NOTE | 2021-06-14 08:43 | NUR ---
Pt to dialysis at this time.
--- NOTE | 2021-06-14 08:58 | NUR ---
Pt assessment complete. Pt is drowsy, will arouse to touch and loud verbal stimuli. He denies any pain. No SOB. Pt ate all of breakfast without issues. SCD's in place.
[2021-06-14 09:43] LABS: BASO % 0.3 % (0.0-2.0); EOS # 0.1 (0.0-0.7); EOS % 1.6 % (0-4.0); GRAN # 1.8 (1.4-6.5); GRAN % 56.9 % (42.2-75.2); HEMOGLOBIN 11.9 g/dl (13.5-18.0); LYMPH # 0.9 (1.2-3.4); LYMPH % 28.6 % (20.0-51.0); MEAN CELL VOLUME 102 fl (80.0-100.0); MEAN CORPUSCULAR HEMOGLOBIN 33 pg (27.0-31.0); MEAN CORPUSCULAR HGB CONC 32 g/dl (33.0-37.0); MEAN PLATELET VOLUME 11.4 fl (7.4-10.4); MONO # 0.4 (0.1-0.6); MONO % 12.3 % (1.7-9.3); PLATELET COUNT 165 K/mm3 (130-400); RED BLOOD COUNT 3.63 M/mm3 (4.20-5.60); REDCELL DISTRIBUTION WIDTH-CV 13.4 % (11.5-14.5)
[2021-06-14 09:50] LABS: ALBUMIN 3.8 gm/dL (3.5-5.0); BILIRUBIN,TOTAL 0.4 mg/dL (0.0-1.0); CALCIUM 8.9 mg/dL (8.4-10.2); CREATININE, serum 8.63 (0.66-1.25); POTASSIUM 4.6 mmol/L (3.4-5.0); TOTAL PROTEIN 6.5 gm/dL (6.4-8.2)
--- NOTE | 2021-06-14 12:29 | NUR ---
Patient tolerated HD tx with 3.7L fluid removal today. Patient with increased alertness & talkative @ the end of tx. Next planned HD tx on Saturday06/16/21 @ 0800.
--- NOTE | 2021-06-14 13:41 | NUR ---
SW faxed updates to [facility].
--- NOTE | 2021-06-14 18:48 | NUR ---
Pt had dialysis today, came back with small amount of blood to fistula site. Seems to have resolved. Report given to film processing shift supervisor, to keep an eye on. Verified with Dr. Chu to give scheduled Seroquel because patient has been very sleepy between meals. Order to give medication. No needs at this time.
--- NOTE | 2021-06-14 20:34 | NUR ---
BLEEDING NOTED ON DRESSING, DRESSING CHANGED WITH GAUZE AND PAPER TAPE. WILL CONTINUE TO MONITOR.
--- NOTE | 2021-06-14 22:43 | NUR ---
Pt alert, oriented x2 to person and place. Unable to answer date and situation questions states, "I don't know." Re-oriented at this time. Pt's fistula dressing had drainage, redressed with gauze and paper tape. Bruit and thrill auscultated and palpated. Will continue to monitor. Pt had weak bottomer operator, equal bilaterally. Pt had bowel movement this evening. Pt received call from father this evening. Pt provided snacks, call light in reach, bed locked in lowest position.
[2021-06-15 04:34] VITALS: BP 109/65; PULSE 62; TEMP 97.5
--- NOTE | 2021-06-15 04:52 | NUR ---
Pt alert and oriented x2 this shift to place and person. Pt unable to recall situation or date, reoriented this shift. Pt's fistula dressing that was replaced at start of shift is clean, dry, and intact. Pt denied pain for duration of shift. Pt's VS stable, fall risk precautions observed and pt free from fall this shift. Pt able to express needs, pt family called at start of shift. Pt skin integrity intact, pillow placed under right side at 0500 to alleviate pressure and prevent skin breakdown.
--- NOTE | 2021-06-15 04:52 | NUR ---
Pillow placed on right side to alleviate pressure over coccyx.
[2021-06-15 07:06] LABS: ALBUMIN 3.7 gm/dL (3.5-5.0); BILIRUBIN,TOTAL 0.4 mg/dL (0.0-1.0); CALCIUM 9.2 mg/dL (8.4-10.2); CREATININE, serum 7.46 (0.66-1.25); POTASSIUM 4.6 mmol/L (3.4-5.0); TOTAL PROTEIN 6.9 gm/dL (6.4-8.2)
[2021-06-15 07:13] LABS: BASO % 0.6 % (0.0-2.0); EOS # 0.1 (0.0-0.7); EOS % 1.9 % (0-4.0); GRAN % 55.4 % (42.2-75.2); HEMATOCRIT 39.9 % (42.0-52.0); HEMOGLOBIN 12.4 g/dl (13.5-18.0); MEAN CELL VOLUME 106 fl (80.0-100.0); MEAN CORPUSCULAR HEMOGLOBIN 33 pg (27.0-31.0); MEAN CORPUSCULAR HGB CONC 31 g/dl (33.0-37.0); MEAN PLATELET VOLUME 11.5 fl (7.4-10.4); MONO # 0.5 (0.1-0.6); MONO % 12.8 % (1.7-9.3); PLATELET COUNT 157 K/mm3 (130-400); RED BLOOD COUNT 3.75 M/mm3 (4.20-5.60); REDCELL DISTRIBUTION WIDTH-CV 13.4 % (11.5-14.5)
[2021-06-15 07:35] VITALS: BP 108/61; PULSE 63; TEMP 97.5
--- NOTE | 2021-06-15 08:19 | NUR ---
Assessment completed, alert/oriented to person and place, patient has hx of cognitive delay, vital signs stable, denies pain, heart RRR/ SR on tele, lungs CTA/ no resp., ordered his breakfast, monring meds given, patient resting queitly and denies needs, PT/OT ordered for eval/ discharge planning to return to [facility] in [place]
[2021-06-15 12:23] VITALS: BP 107/60; PULSE 68; TEMP 97.4
--- NOTE | 2021-06-15 14:28 | NUR ---
The patient is to tentatively d/c tomorrow, 06/16, after dialysis. DUTCH notified and faxed updates to Jaja at [facility]. Jaja reports that the latest machine operator picker time they can do tomorrow would probably be 1530. Jaja requests SNF orders. DUTCH contacted and updated the patient's father, Ari. Ari was in agreement to the plan. DUTCH read the IM form outloud to Ari. Ari verbalized understanding and gave SW approval to sign the form on his behalf. SW to continue to follow.
[2021-06-15 16:16] VITALS: BP 114/69; PULSE 76; TEMP 97.6
[2021-06-15 20:36] VITALS: BP 128/71; PULSE 76; TEMP 98.4
[2021-06-16 00:58] VITALS: BP 102/59; PULSE 63; TEMP 97.5
--- NOTE | 2021-06-16 02:49 | NUR ---
Patient resting comfortably with no complaints of pain over night. Lung sounds are clear with diminished bases and HR is normal/regular. Generalized edema is present with no pitting. Patient has an excellent appetite and has been provided with snacks. He has been alert and oriented prior to falling asleep. Comfort measures provided and no additional concerns noted. Left forearm fistula shows no signs of bleeding and bruit/thrill are present. Call light in reach and bed alarm set.
[2021-06-16 04:28] VITALS: BP 114/67; PULSE 62; TEMP 98.3
[2021-06-16 07:16] VITALS: BP 163/70; PULSE 60; TEMP 97.6
--- NOTE | 2021-06-16 08:08 | NUR ---
Pt assessment complete. Pt laying in bed upon entry, he is very drowsy and difficult to arrouse. He denies any pain. Breathing is even and unlabored on RA. Pt denies SOB. Fistula dressing CDI. No needs at this time.
[2021-06-16 09:58] LABS: BASO % 0.4 % (0.0-2.0); EOS # 0.1 (0.0-0.7); EOS % 2.5 % (0-4.0); GRAN # 1.6 (1.4-6.5); GRAN % 56.3 % (42.2-75.2); HEMATOCRIT 38.3 % (42.0-52.0); HEMOGLOBIN 12.2 g/dl (13.5-18.0); LYMPH # 0.9 (1.2-3.4); LYMPH % 31.4 % (20.0-51.0); MEAN CELL VOLUME 104 fl (80.0-100.0); MEAN CORPUSCULAR HEMOGLOBIN 33 pg (27.0-31.0); MEAN CORPUSCULAR HGB CONC 32 g/dl (33.0-37.0); MEAN PLATELET VOLUME 11.7 fl (7.4-10.4); MONO # 0.3 (0.1-0.6); PLATELET COUNT 153 K/mm3 (130-400); RED BLOOD COUNT 3.67 M/mm3 (4.20-5.60); REDCELL DISTRIBUTION WIDTH-CV 13.2 % (11.5-14.5)
[2021-06-16 10:05] LABS: ALBUMIN 3.7 gm/dL (3.5-5.0); BILIRUBIN,TOTAL 0.5 mg/dL (0.0-1.0); CALCIUM 9.1 mg/dL (8.4-10.2); CREATININE, serum 9.55 (0.66-1.25); POTASSIUM 4.8 mmol/L (3.4-5.0); TOTAL PROTEIN 6.5 gm/dL (6.4-8.2)
--- NOTE | 2021-06-16 10:32 | NUR ---
The patient is to discharge today, 06/16, back to [facility] for a skilled stay. Transportation was scheduled at 1330, via [facility]. SW informed the patient's mother, Mallory, and his RN of the time. They were both in agreement to the time. No additional needs at this time.
--- NOTE | 2021-06-16 11:24 | NUR ---
First visit from the patient accounts coordinator. No needs right now.
[2021-06-16] MEDS ORDERED: WELLBUTRIN SR150 M1 PO (11:40)
[2021-06-16 12:00] VITALS: BP 129/70; PULSE 66; TEMP 97.9
--- NOTE | 2021-06-16 12:56 | NUR ---
PATIENT TOLERATED HD TX WITH 1.1L FLUID REMOVAL TODAY. NEXT PLANNED HD TX ON Saturday06/19/2021 @ [facility].
--- NOTE | 2021-06-16 14:14 | NUR ---
IV to RAC dc'd catheter tip intact. Pt assisted in having a BM prior to dc. Assisted to wheelchair. WHeeled out by staff member from [place].
== END 2021-06-16 14:14 | DRG 640 ==
LOC: MEDICAL 16:27
PROVIDERS: ADMIT Internal Medicine Nephrology
PROC: 5A1D70Z Performance of Urinary Filtration, Intermittent, Less than 6 Hours Per Day (ICD-10-PCS; principal; 2021-06-16)
DX: E87.5 Hyperkalemia (principal); N18.6 End stage renal disease; I12.0 Hypertensive chronic kidney disease with stage 5 chronic kidney disease or end stage renal disease; I42.8 Other cardiomyopathies; Z20.822 Contact with and (suspected) exposure to COVID-19; I48.91 Unspecified atrial fibrillation; G47.33 Obstructive sleep apnea (adult) (pediatric); K21.9 Gastro-esophageal reflux disease without esophagitis; F20.9 Schizophrenia, unspecified; E66.01 Morbid (severe) obesity due to excess calories; F41.1 Generalized anxiety disorder; D63.1 Anemia in chronic kidney disease; E03.9 Hypothyroidism, unspecified
CPT/HCPCS: J1644; J1756; J7030

== ENCOUNTER 2021-09-19 10:12 | Outpatient (CLI) | payer MEDICARE, MEDICAID ==
[2021-09-19] VITALS (9 sets, daily range): BP systolic 152–185; BP diastolic 78–92; PULSE 60–66
[~2021-09-19] VITALS: Ht 183 cm; Wt 136.7 kg
[~2021-09-19 10:12] MED LIST changes: +KALEXATE1 PDR PO
[2021-09-19] MEDS ORDERED: NORVASC 5MG5 MG/TAB PO (11:21)
[2021-09-19] MEDS ORDERED: WELLBUTRIN 100100 MG PO (11:22)
[2021-09-19] MEDS ORDERED: KALEXATE1 PDR PO (11:24)
[2021-09-19] MEDS ORDERED: FOSRENOL500 MG PO (11:25)
[2021-09-19] MEDS ORDERED: CYTOMEL 2525 MCG/TAB PO (11:27)
[2021-09-19] MEDS ORDERED: MIRALAX PA17 GM/Dose PO (11:30)
--- NOTE | 2021-09-19 11:30 | NUR ---
SEE MERGE FOR ALL MEDICATION ADMINISTRATION TIMES/DOSAGES AND INTRA/POST SEDATION ASSESSMENT.
[2021-09-19] MEDS ORDERED: SEROQUEL50 MG PO (11:35)
[2021-09-19] MEDS ORDERED: ZYPREXA 5MG5 MG PO (11:39)
--- NOTE | 2021-09-19 14:30 | NUR ---
DC instructions reviewed with pt, he expresses understanding. INT DC'd with catheter intact. Pt assisted back to wheelchair by micaela lift. Awaiting prison transport arrival.
--- NOTE | 2021-09-19 14:48 | NUR ---
Pt assisted out by wheelchair to assisted transport van with belongings.
== END 2021-09-19 14:40 | disposition home or self-care (01) ==
LOC: COL.CAR 10:12
DX: T82.898A Other specified complication of vascular prosthetic devices, implants and grafts, initial encounter (principal); M79.602 Pain in left arm; N18.6 End stage renal disease; E03.9 Hypothyroidism, unspecified; Z90.89 Acquired absence of other organs; Z79.899 Other long term (current) drug therapy
CPT/HCPCS: J1644; J2250; J3010; Q9967

== ENCOUNTER 2021-10-26 13:13 | Day surgery (SDC) | payer MEDICARE, MEDICAID ==
[~2021-10-26] VITALS: Ht 175.3 cm; Wt 131.3 kg
[~2021-10-26 13:13] MED LIST changes: +NORVASC 5MG5 MG/TAB PO; +WELLBUTRIN 100100 MG PO
[2021-10-26] MEDS ORDERED: OXYGEN (13:44)
[2021-10-26] MEDS ORDERED: KALEXATE1 PDR PO (13:50)
[2021-10-26] MEDS ORDERED: FOSRENOL500 MG PO (13:51)
[2021-10-26] MEDS ORDERED: SYNTHROID0.05 MG/TA PO (13:51)
[2021-10-26] MEDS ORDERED: CYTOMEL 2525 MCG/TAB PO (13:52)
[2021-10-26 14:13] VITALS: BP 129/79; PULSE 79; TEMP 96.9
[2021-10-26 15:20] VITALS: BP 128/81; PULSE 77
--- NOTE | 2021-10-26 15:20 | NUR ---
Patient returns to [facility] per cart accompanied by Altagracia SOLIS and is awake and alert. IV fluids infusing. Given orange juice and muffin for snack. Denies nausea or abdominal pain. Watches TV.
--- NOTE | 2021-10-26 15:35 | NUR ---
Tolerates muffin and juice. Continues to deny discomfort and nausea.
--- NOTE | 2021-10-26 15:45 | NUR ---
Patient tolerated muffin and juice. VS 128/80, 73, 16,.99% on room air. IV discontinued and site is free of redness of swelling. Assisted with dressing. Total lift from from cart to wheelchair and tolerated well.
--- NOTE | 2021-10-26 15:55 | NUR ---
Patient dismissed back to [facility] per wheelchair van with dismissal instructions in hand.
--- NOTE | 2021-10-26 16:00 | NUR ---
Report called to RN at [facility].
== END 2021-10-26 15:55 | disposition home or self-care (01) ==
LOC: SDCO 13:13
DX: D12.2 Benign neoplasm of ascending colon (principal); K62.1 Rectal polyp; I12.0 Hypertensive chronic kidney disease with stage 5 chronic kidney disease or end stage renal disease; D50.9 Iron deficiency anemia, unspecified; K57.30 Diverticulosis of large intestine without perforation or abscess without bleeding; K29.70 Gastritis, unspecified, without bleeding; N18.6 End stage renal disease; Z99.2 Dependence on renal dialysis; Z79.899 Other long term (current) drug therapy; Z79.891 Long term (current) use of opiate analgesic; I48.91 Unspecified atrial fibrillation; E78.5 Hyperlipidemia, unspecified; G47.33 Obstructive sleep apnea (adult) (pediatric); K21.9 Gastro-esophageal reflux disease without esophagitis; Z86.73 Personal history of transient ischemic attack (TIA), and cerebral infarction without residual deficits; G62.9 Polyneuropathy, unspecified
CPT/HCPCS: J2704; J7030

== ENCOUNTER 2022-02-16 10:08 | Inpatient (IN) | payer MEDICARE, MEDICAID ==
[~2022-02-16] VITALS: Ht 185.4 cm; Wt 134.4 kg
[~2022-02-16 10:08] MED LIST changes: +AUGMENTIN 250 M1 TAB PO; +BIOFREEZE 0.2%-1 GE1 TOP; +MAALOX ADVANCE148 ML PO; +OXYGEN; +SODIUM BICARBO650 MG PO
--- NOTE | 2022-02-16 12:15 | NUR ---
PT LAID IN BED TO HAVE RIGHT TIJ REMOVED. REMOVAL COMPLETED WITHOUT ANY ISSUES. NO BLEEDING. PT IS ANXIOUS TO GET OUT OF THE HOSPITAL. DISCHARGE EDUCATION COMPLETED PT VERBALIZED UNDERSTANDING AND FRUSTRATION D/T THIS RN GOING OVER REFERRAL TO GYNECOLOGY FOR UTERINE MASS FINDING. THE PATIENT STATES THAT SHE WAS UNAWARE OF THIS, AND QUESTIONS WHY THE DOCTOR DID NOT DISCUSS WITH HER THESE RESULTS. THIS RN CONTACTED DR. FOSTER WHO CAME TO TALK TO THE PATIENT REGARDING HER RESULTS AND SUBSEQUENT DISCHARGE. THERE ARE NO OTHER CONCERNS. THE PATIENT DID DISCHARGE AND WAS ESCORTED OUT.
[2022-02-16 14:40] VITALS: BP 114/60; PULSE 55; TEMP 97.6
[2022-02-16 15:04] LABS: MEAN CELL VOLUME 108 fl (80.0-100.0); MEAN CORPUSCULAR HGB CONC 31 g/dl (33.0-37.0); MEAN PLATELET VOLUME 10.6 fl (7.4-10.4); PLATELET COUNT 291 K/mm3 (130-400); RED BLOOD COUNT 2.27 M/mm3 (4.20-5.60); REDCELL DISTRIBUTION WIDTH-CV 14.4 % (11.5-14.5)
[2022-02-16 15:09] LABS: HEMATOCRIT 24.5 % (42.0-52.0); HEMOGLOBIN 7.5 g/dl (13.5-18.0); MEAN CORPUSCULAR HEMOGLOBIN 33 pg (27-31)
[2022-02-16 15:41] LABS: ALBUMIN 2.7 gm/dL (3.4-4.8); BILIRUBIN,TOTAL 0.4 mg/dL (0.2-1.2); CREATININE, serum 8.56 mg/dL (0.72-1.25); TOTAL PROTEIN 8.7 gm/dL (6.2-8.1)
[2022-02-16 15:44] LABS: BAND 10 % (0-10); EOSINOPHIL 2 % (0-4); LYMPHOCYTE 8 % (20.0-51.0); METAMYELOCYTE 1 % (0-0); MYELOCYTE 2 % (0-0); NEUTROPHILS 75 % (42.0-75.2); NUCLEATED RED BLOOD CELL 1 (0-6)
[2022-02-16 15:45] LABS: PLATELET ESTIMATE NORMAL (NORMAL)
[2022-02-16 15:46] LABS: HYPOCHROMIA 3+
[2022-02-16 16:07] VITALS: BP 132/71; PULSE 70; TEMP 97.8
--- NOTE | 2022-02-16 19:00 | NUR ---
PT HAD UNEVENTFUL END OF SHIFT, THE PATIENT ATE DINNER BUT HAS BEEN VERY UNWILLING TO ALLOW [employer] ADMINISTRATOR TO CHECK FOR BOWEL MOVEMENT. THERE IS A STOOL OCCULT TO BE COLLECTED. REPORT GIVEN TO IRMA COOPER.
[2022-02-16 19:55] VITALS: BP 122/52; PULSE 69; TEMP 97.5
--- NOTE | 2022-02-16 21:38 | NUR ---
TELE CONTACTED THIS NURSE TO INFORM OF HEART RATE OF 33. THIS NURSE CALLED CALL CENTER ASSISTANT SITE PROMOTION AGENT. CARDIOGY FOLLOWING. PT VSS. PT REPORTS MILD LIGHTHEADEDNESS BUT STATES HE FEELS FINE. NO INTERVENTIONS AT THIS TIME. THIS NURSE WILL STANDY FOR FURTHER ORDERS.
[2022-02-16 23:59] VITALS: BP 136/51; PULSE 43; TEMP 97.6
[2022-02-17] VITALS (7 sets, daily range): BP systolic 128–159; BP diastolic 62–98; PULSE 50–97; TEMP 97.5–98.3
--- NOTE | 2022-02-17 05:09 | NUR ---
PT REFUSED LABS THIS MORNING AND BEGAN TO GET VERBALLY AGGRESIVE WITH STAFF. BED ALARM ON.
[2022-02-17 06:36] LABS: ALBUMIN 2.1 gm/dL (3.4-4.8); CALCIUM 9.4 mg/dL (8.4-10.2); CREATININE, serum 9.61 mg/dL (0.72-1.25); PHOSPHOROUS 6.5 mg/dL (2.3-4.7); POTASSIUM 5.6 mmol/L (3.5-4.5)
--- NOTE | 2022-02-17 07:41 | NUR ---
PT HAD UNEVNETUFL NIGHT THIS SHIFT, PT ADMINISTERED ABX ORDERED.PT REMAINS ZORAN, VSS, 02 RA, PT ASYMPTOMATIC, PT CLEAN AND DRY.ALL NEEDS MET THIS SHIFT. CALL LIGHT WITHIN REACH.
--- NOTE | 2022-02-17 08:55 | NUR ---
PT. WOOD HEEL BACK LINER ALERTED RN THAT PATIENT'S OXYGEN SATURATION WAS IN THE 80'S AND SHE COULDN'T GET IT TO READ OUT OF THE 80'S. RN PLACED PATIENT ON 2L VIA NC OF OXYGEN. PATIENT SLEEPING IN BED, AGREEABLE TO PLACING NASAL CANNULA.
--- NOTE | 2022-02-17 09:22 | NUR ---
GAVE PATIENT MORNING MEDICATIONS PRIOR TO DIALYSIS. HELD BP MEDS UNTIL AFTER DIALYSIS AND IV ZOSYN. ORDERED PTS BREAKFAST TRAY TO BE DELIVERED TO DIALYSIS. ASSESSMENT COMPLETE.
[2022-02-17 10:18] LABS: MEAN CELL VOLUME 105 fl (80.0-100.0); MEAN CORPUSCULAR HGB CONC 31 g/dl (33.0-37.0); MEAN PLATELET VOLUME 10.3 fl (7.4-10.4); PLATELET COUNT 260 K/mm3 (130-400); RED BLOOD COUNT 2.73 M/mm3 (4.20-5.60); REDCELL DISTRIBUTION WIDTH-CV 14.2 % (11.5-14.5)
[2022-02-17 10:22] LABS: HEMATOCRIT 28.6 % (42.0-52.0); HEMOGLOBIN 8.8 g/dl (13.5-18.0); MEAN CORPUSCULAR HEMOGLOBIN 32 pg (27-31)
[2022-02-17 10:33] LABS: BAND 5 % (0-10); BASOPHIL 1 % (0-2); EOSINOPHIL 3 % (0-4); LYMPHOCYTE 9 % (20.0-51.0); NEUTROPHILS 80 % (42.0-75.2); NUCLEATED RED BLOOD CELL 1 (0-6); PLATELET ESTIMATE NORMAL (NORMAL)
[2022-02-17 10:34] LABS: HYPOCHROMIA 3+
--- NOTE | 2022-02-17 13:02 | NUR ---
PATIENT TOLERATED HD TX WITH 3.5L OF FLUID REMOVED. NEXT PLANNED HD TX ON 02/19/22 @ 0830.
[2022-02-18] VITALS (7 sets, daily range): BP systolic 112–153; BP diastolic 47–73; PULSE 67–72; TEMP 97.3–98
--- NOTE | 2022-02-18 05:34 | NUR ---
PT HAD UNEVENTFUL NIGHT THIS SHIFT. ABX ADMINISTERED ORDERED. LLE REDNESS MILDY BETTER. LLE PULSE WEAK. ALL NEEDS MET THIS SHIFT. CALL LIGHT WITHIN REACH.
[2022-02-18 06:12] LABS: MEAN CELL VOLUME 105 fl (80.0-100.0); MEAN CORPUSCULAR HGB CONC 31 g/dl (33.0-37.0); MEAN PLATELET VOLUME 10.4 fl (7.4-10.4); PLATELET COUNT 291 K/mm3 (130-400); RED BLOOD COUNT 2.99 M/mm3 (4.20-5.60); REDCELL DISTRIBUTION WIDTH-CV 14.3 % (11.5-14.5)
[2022-02-18 06:16] LABS: HEMATOCRIT 31.4 % (42.0-52.0); HEMOGLOBIN 9.8 g/dl (13.5-18.0); MEAN CORPUSCULAR HEMOGLOBIN 33 pg (27-31)
[2022-02-18 06:33] LABS: ALBUMIN 2.3 gm/dL (3.4-4.8); CALCIUM 10.2 mg/dL (8.4-10.2); CREATININE, serum 6.93 mg/dL (0.72-1.25); PHOSPHOROUS 5.4 mg/dL (2.3-4.7); POTASSIUM 4.9 mmol/L (3.5-4.5)
[2022-02-18 07:10] LABS: BAND 3 % (0-10); BASOPHIL 1 % (0-2); EOSINOPHIL 2 % (0-4); LYMPHOCYTE 8 % (20.0-51.0); MYELOCYTE 1 % (0-0); NEUTROPHILS 83 % (42.0-75.2)
[2022-02-18 07:11] LABS: HYPOCHROMIA 2+; PLATELET ESTIMATE NORMAL (NORMAL)
--- NOTE | 2022-02-18 07:23 | NUR ---
Patient placed on bedpan, had a large/solid bowel movement (stool occult collected). BM did not appear to have any blood in it. Patient c/o pain in left leg. Denies any other concerns. Patient is A&Ox4, is slow to answer at times. Call light is within reach.
--- NOTE | 2022-02-18 15:01 | NUR ---
SW met with patient to complete intake. Patient states that he lives at the [facility]. Friend Dulce Whitfield is point of contact [phone]. Patient states that he cannot walk and utilizes a wheelchair, and rec[facility]. Patient states he is unsure of his PCP and does not know what pharmacy is used. Patient does not have anyone appointed as DPOA/HC. SW will continue to follow. DC plan: back to [facility]
--- NOTE | 2022-02-18 18:13 | NUR ---
Patient has done wll today and has not expressed any concerns. Leg remains red, warm, swollen, and tender. Patient states pain is only present w/ movement or touch.
[2022-02-19] VITALS (7 sets, daily range): BP systolic 137–166; BP diastolic 57–86; PULSE 55–71; TEMP 97.3–98.3
--- NOTE | 2022-02-19 05:01 | NUR ---
ASSESSMENT COMPLETE FOR THIS SHIFT. PT RESTING IN BED WATCHING TV. PT A&O X3. PT WANTED A SANDWICH. SANDWICH BOX PROVIDED. PT COMPLAINED OF KNEE PAIN HE RATED A 5. TYLENOL GIVEN. PT HAS NOT COMPLAINED ANY MORE TONIGHT ABOUT PAIN THUS FAR. PT DENIED DIZZINESS, N,V,D OR SOB. LLE LEONARDA, SWELLEN, AND TENDER. PT EXPRESSED NO OTHER NEEDS AT THIS TIME. WILL CONTINUE TO CHECK-IN ON PT. CALL LIGHT WITHIN REACH.
--- NOTE | 2022-02-19 08:00 | NUR ---
Shift assessment complete. Pt resting in bed, A&Ox4. Vitals stable. LLE w/redness and 3+ swelling, tender to touch. Pt denies pain resting in bed and declines intervention. Scheduled to receive dialysis at 0830 this morning. Continuing to monitor.
[2022-02-19 09:45] LABS: MEAN CELL VOLUME 106 fl (80.0-100.0); MEAN CORPUSCULAR HGB CONC 30 g/dl (33.0-37.0); MEAN PLATELET VOLUME 10.2 fl (7.4-10.4); PLATELET COUNT 276 K/mm3 (130-400); RED BLOOD COUNT 2.77 M/mm3 (4.20-5.60); REDCELL DISTRIBUTION WIDTH-CV 13.9 % (11.5-14.5)
[2022-02-19 09:46] LABS: HEMATOCRIT 29.3 % (42.0-52.0); HEMOGLOBIN 8.9 g/dl (13.5-18.0); MEAN CORPUSCULAR HEMOGLOBIN 32 pg (27-31)
[2022-02-19 10:06] LABS: CALCIUM 9.5 mg/dL (8.4-10.2); CREATININE, serum 8.89 mg/dL (0.72-1.25); PHOSPHOROUS 6.8 mg/dL (2.3-4.7)
[2022-02-19 10:12] LABS: POTASSIUM 6.1 mmol/L (3.5-4.5)
[2022-02-19 10:19] LABS: BAND 1 % (0-10); EOSINOPHIL 4 % (0-4); LYMPHOCYTE 12 % (20.0-51.0); METAMYELOCYTE 4 % (0-0); MYELOCYTE 1 % (0-0); NEUTROPHILS 76 % (42.0-75.2); PLATELET ESTIMATE NORMAL (NORMAL)
[2022-02-19 10:20] LABS: HYPOCHROMIA 1+
--- NOTE | 2022-02-19 11:40 | NUR ---
DUTCH contacted [facility] and confirmed the patient is a long-term care resident there. The hotel receptionist confirms that the patient's parents are still his DPOA-HC. The patient's DPOA-HC is in EMR and it designates his parents: Ari and Mallory Kent (#[phone], ). DUTCH faxed updates to [facility]. SW to continue to follow. *Discharge plan: [facility]*
--- NOTE | 2022-02-19 12:35 | NUR ---
PATIENT TOLERATED HD TX WITH 6L OF FLUID REMOVED. WEANED OFF O2. NEXT PLANNED HD TX ON Saturday02/21/22 @ 0830.
--- NOTE | 2022-02-19 18:21 | NUR ---
Pt received dialysis this morning with 6 liters removed. Resting in room w/o complaint this afternoon. Fistula did start trickling blood this afternoon while at bedside, gauze and paper tape placed over site. Continuing to monitor.
[2022-02-20] VITALS (20 sets, daily range): BP systolic 114–151; BP diastolic 44–81; PULSE 56–81; TEMP 97.6–98.4
--- NOTE | 2022-02-20 01:29 | NUR ---
Report received from IRMA Mcmillan. Patient resting in bed with eyes closed. No acute distess noted. NPO maintained from midnight. Call light in reach. Will continue to monitor.
--- NOTE | 2022-02-20 06:27 | NUR ---
Dr. Montes came to the room and bring the patient down to OR for procedure at this time.
--- NOTE | 2022-02-20 08:35 | NUR ---
PATIENT RETURNED FROM SURGERY. PATIENT AWAKE BUT SLEEPY, ON 3LPM NC. VS STABLE. PATIENT ON VS MACHINE FOR POST OP VITALS. PT'S PAIN IS WELL TOLERATED AT THIS TIME.
--- NOTE | 2022-02-20 12:30 | NUR ---
PATIENT TO DIALYSIS FOR TREATMENT.
[2022-02-20 13:07] LABS: MEAN CELL VOLUME 104 fl (80.0-100.0); MEAN CORPUSCULAR HGB CONC 31 g/dl (33.0-37.0); MEAN PLATELET VOLUME 9.8 fl (7.4-10.4); PLATELET COUNT 309 K/mm3 (130-400); REDCELL DISTRIBUTION WIDTH-CV 14.2 % (11.5-14.5)
[2022-02-20 13:09] LABS: HEMATOCRIT 31.1 % (42.0-52.0); HEMOGLOBIN 9.6 g/dl (13.5-18.0); MEAN CORPUSCULAR HEMOGLOBIN 32 pg (27-31)
[2022-02-20 13:18] LABS: ALBUMIN 2.1 gm/dL (3.4-4.8); CALCIUM 9.6 mg/dL (8.4-10.2); CREATININE, serum 6.99 mg/dL (0.72-1.25); POTASSIUM 5.2 mmol/L (3.5-4.5)
--- NOTE | 2022-02-20 13:31 | NUR ---
The patient may be able to discharge tomorrow, 02/21. DUTCH notified and faxed updates to Carolyn at [facility]. SW contacted and updated the patient's father, Ari. Ari is in agreement to the plan. DUTCH read the IM form outloud to Ari over the phone. Ari verbalized understanding and of agreement to discharge tomorrow and gave SW approval to sign the form on his behalf. SW to continue to follow.
[2022-02-20 13:38] LABS: ANISOCYTOSIS 1+; BAND 6 % (0-10); LYMPHOCYTE 14 % (20.0-51.0); METAMYELOCYTE 1 % (0-0); MYELOCYTE 3 % (0-0); NEUTROPHILS 70 % (42.0-75.2); NUCLEATED RED BLOOD CELL 1 (0-6); PLATELET ESTIMATE NORMAL (NORMAL)
[2022-02-20 13:39] LABS: POLYCHROMASIA 1+
--- NOTE | 2022-02-20 16:29 | NUR ---
PATIENT TOLERATED EXTRA HD TREATMENT TODAY WITH 4,785 ML OF FLUID REMOVED. NEXT PLANNED HD TX TOMORROW, Saturday02/21/22.
--- NOTE | 2022-02-20 19:20 | NUR ---
RECEIVED CHANGE OF SHIFT REPORT FROM DAY SHIFT RN.
--- NOTE | 2022-02-21 04:00 | NUR ---
PATIENT REFUSED TO TURNING IN BED WHILE HE SLEEPS, REFUSED SCD'S. DOES NOT WEAR OXYGEN CONTINUOUSLY THROUGHOUT NIGHT, ALLOWING TO HAVE IT ON HIS FACE FOR SHORT PERIODS OF TIME.
[2022-02-21 04:07] VITALS: BP 94/58; PULSE 68; TEMP 97.5
--- NOTE | 2022-02-21 07:00 | NUR ---
CHANGE OF SHIFT REPORT GIVEN TO DAY SHIFT NATIVIDAD SOLIS.
--- NOTE | 2022-02-21 07:33 | NUR ---
RA SPO2 85% WITH APNEA. PLACED ON 2 LPM NC 92%
[2022-02-21 07:43] VITALS: BP 103/56; PULSE 65; TEMP 97.4
--- NOTE | 2022-02-21 08:20 | NUR ---
Shift assessment complete. Pt resting in bed. A&Ox4. Vitals stable. Fistula CDI w/palpable thrill and audible bruit. Left lower extremity w/swelling and redness to lower portion of leg. Immobilizer in place and JASMINA wrap over operative site. Site assessed by ortho this morning. Pt denies pain to extremity. Call light in reach. Continuing to monitor.
[2022-02-21 08:26] LABS: PATHOLOGY DIFF REVIEW OK
[2022-02-21 11:50] VITALS: BP 121/70; PULSE 72; TEMP 97.6
[2022-02-21 13:49] LABS: MEAN CELL VOLUME 105 fl (80.0-100.0); MEAN CORPUSCULAR HGB CONC 31 g/dl (33.0-37.0); MEAN PLATELET VOLUME 9.9 fl (7.4-10.4); PLATELET COUNT 337 K/mm3 (130-400); RED BLOOD COUNT 2.93 M/mm3 (4.20-5.60); REDCELL DISTRIBUTION WIDTH-CV 14.3 % (11.5-14.5)
--- NOTE | 2022-02-21 13:51 | NUR ---
Social Work student faxed updates to [facility]
[2022-02-21 13:52] LABS: HEMATOCRIT 30.7 % (42.0-52.0); HEMOGLOBIN 9.5 g/dl (13.5-18.0); MEAN CORPUSCULAR HEMOGLOBIN 32 pg (27-31)
[2022-02-21 14:03] LABS: ALBUMIN 2.2 gm/dL (3.4-4.8); CALCIUM 9.6 mg/dL (8.4-10.2); CREATININE, serum 5.88 mg/dL (0.72-1.25); PHOSPHOROUS 5.8 mg/dL (2.3-4.7); POTASSIUM 4.4 mmol/L (3.5-4.5)
--- NOTE | 2022-02-21 14:15 | NUR ---
DUTCH staffed with YEIMI Carter. The patient will not be done with dialysis until around 1630 today. DUTCH notified Jaja at [facility]. Jaja states that they do not have transportation that late and they will have to greens picker the patient tomorrow morning. She plans on contacting DUTCH back with a transport time. DUTCH updated Emma. DUTCH contacted and updated the patient's father, Ari.
[2022-02-21 14:19] LABS: BAND 2 % (0-10); BASOPHIL 1 % (0-2); EOSINOPHIL 2 % (0-4); LYMPHOCYTE 14 % (20.0-51.0); METAMYELOCYTE 2 % (0-0); MYELOCYTE 4 % (0-0); NEUTROPHILS 67 % (42.0-75.2); NUCLEATED RED BLOOD CELL 1 (0-6)
[2022-02-21 14:20] LABS: PLATELET ESTIMATE NORMAL (NORMAL); POLYCHROMASIA 1+
[2022-02-21 14:21] LABS: HYPOCHROMIA 1+
--- NOTE | 2022-02-21 14:35 | NUR ---
Vancomycin Follow-up Pharmacy Note Current regimen: Vancomycin dosing based on random levels Vancomycin random level: 20.33 (pre-dialysis level) Adjustments: Will give Vancomycin 750 mg IV x1 after dialysis today. Pharmacy will continue to closely monitor and redose post dialysis based on random levels.
--- NOTE | 2022-02-21 14:39 | NUR ---
Jaja, at [facility], states that they will poultry picking machine tender the patient tomorrow around 1030-11. They request skilled orders. SW notified Emma about the COVID test.
--- NOTE | 2022-02-21 16:24 | NUR ---
PATIENT TOLERATED HD TX WITH 3.5L OF FLUID REMOVED. NEXT PLANNED HD TX ON Saturday02/23/22 @ [facility] IN [place] @ [address].
[2022-02-21 16:48] VITALS: BP 120/64; PULSE 69; TEMP 97.6
--- NOTE | 2022-02-21 19:36 | NUR ---
Pt received dialysis today and tolerated well. No complaints of pain and LLE w/o s/s complication or pain. Pt set to discharge tomorrow morning. Report given to date night caregiver RN.
[2022-02-21 19:55] VITALS: BP 116/59; PULSE 65; TEMP 97.7
[2022-02-21 23:31] VITALS: BP 120/35; BP 145/54; PULSE 83; TEMP 97.7
[2022-02-22 04:12] VITALS: BP 120/60; PULSE 73; TEMP 97.5
--- NOTE | 2022-02-22 05:58 | NUR ---
NO NEW ISSUES NOTED OR REPORTED BY PATIENT THROUGHOUT THE NIGHT. PATIENT STATED HE IS LOOKING FORWORD TO GOING HOME TODAY. KNEE STABILIZER IN PLACE.
[2022-02-22 06:31] LABS: HEMATOCRIT 32.3 % (42.0-52.0)
[2022-02-22 07:45] VITALS: BP 119/56; PULSE 74; TEMP 97.5
--- NOTE | 2022-02-22 09:06 | NUR ---
The patient is to discharge today, 02/22, to [facility] for a skilled stay. Transportation was scheduled at 1030, via [facility]. DUTCH informed the patient's RN and his father, Ari, of the time. No additional needs at this time.
[2022-02-22] MEDS ORDERED: AMOXICILLIN/CLA1 TA1 PO (09:39)
--- NOTE | 2022-02-22 14:04 | NUR ---
SPOKE TO NURSE AND GAVE REPORT. NURSE HAD QUESTIONS ABOUT KNEE DRESSING GE HOOPER WAS HERE AND SPOKE TO NURSE AND STATES THAT SHE WILL SPEAK TO ORTH OFFICE AND GET ORDERS AND CALL NURSE BACK AND LET HER KNOW WHAT THEY ARE. ALL QUESTIONS WERE ANSWERED.
[2022-03-06] VITALS (165 sets, daily range): O2SAT 51–100
== END 2022-02-22 10:52 | DRG 485 ==
LOC: MEDICAL 10:08
PROVIDERS: Physician Assistant; Registered Nurse; ADMIT Internal Medicine Nephrology
PROC: 0SPD04Z Removal of Internal Fixation Device from Left Knee Joint, Open Approach (ICD-10-PCS; principal; 2022-02-16)
DX: T84.629A Infection and inflammatory reaction due to internal fixation device of unspecified bone of leg, initial encounter (principal); N18.6 End stage renal disease; A41.9 Sepsis, unspecified organism; L03.116 Cellulitis of left lower limb; I42.8 Other cardiomyopathies; I13.2 Hypertensive heart and chronic kidney disease with heart failure and with stage 5 chronic kidney disease, or end stage renal disease; I50.22 Chronic systolic (congestive) heart failure; E11.22 Type 2 diabetes mellitus with diabetic chronic kidney disease; M10.9 Gout, unspecified; E78.5 Hyperlipidemia, unspecified; E78.1 Pure hyperglyceridemia; F79 Unspecified intellectual disabilities; D63.1 Anemia in chronic kidney disease; E66.01 Morbid (severe) obesity due to excess calories; F41.1 Generalized anxiety disorder; F20.9 Schizophrenia, unspecified; G47.33 Obstructive sleep apnea (adult) (pediatric); K21.9 Gastro-esophageal reflux disease without esophagitis; E03.9 Hypothyroidism, unspecified; I48.91 Unspecified atrial fibrillation; I49.3 Ventricular premature depolarization; I45.4 Nonspecific intraventricular block; E87.5 Hyperkalemia; E83.39 Other disorders of phosphorus metabolism; Y79.8 Miscellaneous orthopedic devices associated with adverse incidents, not elsewhere classified; Z86.73 Personal history of transient ischemic attack (TIA), and cerebral infarction without residual deficits; Z99.2 Dependence on renal dialysis; Z68.37 Body mass index [BMI] 37.0-37.9, adult; Z23 Encounter for immunization; Z20.822 Contact with and (suspected) exposure to COVID-19
CPT/HCPCS: J0690; J1100; J1644; J1756; J2405; J2543; J2704; J3010; J3370; J7030; J7050; Q5105

== ENCOUNTER 2022-03-05 15:05 | Inpatient (IN) | payer MEDICARE, MEDICAID ==
[~2022-03-05] VITALS: Ht 185.4 cm; Wt 140.6 kg
[2022-03-05] VITALS (381 sets, daily range): BP systolic 135–139; BP diastolic 82–91; PULSE 32–71; TEMP 97.6–98.6; O2SAT 65–100
[~2022-03-05 15:05] MED LIST changes: +AMOXICILLIN/CLA1 TA1 PO
--- NOTE | 2022-03-05 17:30 | NUR ---
Mr. Silva arrived via Helicopter with Paramedics. PT is alert and able to follow commands during slide board transfer from [facility]3] to ICU05. PT is on a dopamine GTT at 3 mcg/kg/min. PT is on a education supervisor pacing at a rate of 70 bpm. PT appears to be in no pain or discomfort at this time. VSS. Admission and physical assessment complete. All questions answered. Emma arrived for dialysis.
--- NOTE | 2022-03-05 17:35 | NUR ---
Pacer mode on monitor paused, pt maintains HR in the high 60s low 70s. Per Dr. hCu, titrating down on Dopamine.
[2022-03-05 18:08] LABS: MEAN CELL VOLUME 100 fl (80.0-100.0); MEAN CORPUSCULAR HGB CONC 32 g/dl (33.0-37.0); MEAN PLATELET VOLUME 10.3 fl (7.4-10.4); PLATELET COUNT 288 K/mm3 (130-400); RED BLOOD COUNT 3.04 M/mm3 (4.20-5.60); REDCELL DISTRIBUTION WIDTH-CV 14.9 % (11.5-14.5)
[2022-03-05 18:11] LABS: PROTHROMBIN TIME 11.6 SECONDS (9.7-12.8)
[2022-03-05 18:12] LABS: HEMATOCRIT 30.5 % (42.0-52.0); HEMOGLOBIN 9.6 g/dl (13.5-18.0); MEAN CORPUSCULAR HEMOGLOBIN 32 pg (27-31)
[2022-03-05 18:21] LABS: ALBUMIN 3.2 gm/dL (3.4-4.8); BILIRUBIN,TOTAL 0.5 mg/dL (0.2-1.2); CALCIUM 9.5 mg/dL (8.4-10.2); CREATININE, serum 10.42 mg/dL (0.72-1.25); TOTAL PROTEIN 8.2 gm/dL (6.2-8.1)
[2022-03-05] MEDS ORDERED: [UNRECOGNIZED DRUG - OTHER] PO (18:21)
[2022-03-05] MEDS ORDERED: MINIPRESS2 MG (18:24)
[2022-03-05] MEDS ORDERED: LANTUS100 U/ML SQ (18:25)
[2022-03-05] MEDS ORDERED: KLONOPIN 0.5MG0.5 MG PO (18:26)
[2022-03-05] MEDS ORDERED: GLUCOTROL10 MG PO (18:26)
[2022-03-05] MEDS ORDERED: ZYRTEC 10MG10 MG PO (18:27)
[2022-03-05] MEDS ORDERED: LIPITOR 80MG80 MG PO (18:29)
[2022-03-05] MEDS ORDERED: JARDIANCE25 PO (18:32)
[2022-03-05 18:34] LABS: BAND 1 % (0-10); LYMPHOCYTE 4 % (20.0-51.0); NEUTROPHILS 93 % (42.0-75.2); PLATELET ESTIMATE NORMAL (NORMAL)
[2022-03-05] MEDS ORDERED: PRINIVIL5 MG PO (18:34)
[2022-03-05 18:35] LABS: HYPOCHROMIA 2+
[2022-03-05 18:36] LABS: POTASSIUM 6.7 mmol/L (3.5-4.5)
--- NOTE | 2022-03-05 19:37 | NUR ---
1899 AT BEDSIDE TO SEE PATIENT, REVIEWED MED LIST AND GAVE VERBAL ORDER FOR 1.5 GM OF ANCEF POST DIALYSIS TONIGHT, STATES THAT HE WILL PUT ORDERS AND H&P IN COMPUTER IN A LITTLE BIT.
--- NOTE | 2022-03-05 20:26 | NUR ---
PATIENT TOLERATED HD TX WITH 5L OF FLUID REMOVED. NEXT PLANNED HD TX PENDING LABS & ASSESSMENT.
[2022-03-06] VITALS (977 sets, daily range): BP systolic 103–175; BP diastolic 71–90; PULSE 57–65; TEMP 95.6–97.9; O2SAT 33–100
--- NOTE | 2022-03-06 03:31 | NUR ---
PATIENT NOTED TO DESAT WHEN ASLEEP PLACED ON OXYGEN AT 2LPM VIA NC, AT TIMES WOULD CONTINUE TO REQUIRE REMINDERS TO TAKE BREATHS IN THROUGH NOSE PATIENT EASILY UPSET BY THIS OFTEN EXPRESSING SO WITH HARSH LANGUAGE
[2022-03-06 05:39] LABS: EOS # 0.1 K/mm3 (0.0-0.7); EOS % 1.8 % (0.0-4.0); GRAN # 2.9 K/mm3 (1.4-6.5); GRAN % 75.3 % (42.2-75.2); LYMPH # 0.5 K/mm3 (1.2-3.4); LYMPH % 12.1 % (20.0-51.0); MEAN CELL VOLUME 100 fl (80.0-100.0); MEAN CORPUSCULAR HGB CONC 32 g/dl (33.0-37.0); MEAN PLATELET VOLUME 10.5 fl (7.4-10.4); MONO # 0.4 K/mm3 (0.1-0.6); MONO % 9.5 % (1.7-9.3); PLATELET COUNT 227 K/mm3 (130-400); RED BLOOD COUNT 2.72 M/mm3 (4.20-5.60)
[2022-03-06 05:45] LABS: HEMATOCRIT 27.2 % (42.0-52.0); HEMOGLOBIN 8.7 g/dl (13.5-18.0); MEAN CORPUSCULAR HEMOGLOBIN 32 pg (27-31)
--- NOTE | 2022-03-06 05:45 | NUR ---
PATIENT DESAT AT TIME INTO THE 40'S NOTED EPISODES OF APNEA WHEN WOKE UP AND INSTRUCTED TO TAKE DEEP BREATHS RECOVERED QUICKLY, PLACED ON OXYGEN VIA OXYMASK AT THIS TIME TO ASSIST WITH LESS DESATURATION EPISODES DUE TO PATIENT MOUTH BREATHING
[2022-03-06 05:57] LABS: ALBUMIN 2.8 gm/dL (3.4-4.8); CALCIUM 9.2 mg/dL (8.4-10.2); CREATININE, serum 8.11 mg/dL (0.72-1.25); PHOSPHOROUS 7.1 mg/dL (2.3-4.7); POTASSIUM 4.5 mmol/L (3.5-4.5)
--- NOTE | 2022-03-06 08:09 | NUR ---
PATIENT DID WELL OVERNIGHT BUT DID HAVE A FEW INSTANCES OF DESATTING WHILE SLEEPING; PATIENT PUT ON OXYMASK AT 6 LMP.
--- NOTE | 2022-03-06 10:23 | NUR ---
RN CALLED TO ASK TO HAVE BIPAP PUT ON PT DUE TO APNIC SPELLS. ASKED NURSE TO VERIFY WITH DR. CHEN AND RECEIVE ORDER PRIOR. WILL FOLLOW UP.
--- NOTE | 2022-03-06 13:30 | NUR ---
DR. FREY'S OFFICE CALLED THIS MORNING IN REGARDS TO MISSED APPT, PATIENT WAS SUPPOSED TO HAVE THOMAS REMOVED FROM THE LEFT KNEE. APPT IS CANCELLED AND THOMAS WILL BE REMOVED IN THE UNIT. THIS NURSE REPORTED THAT THE KNEE AND INCISION LOOKED WELL APPROXIMATED WITH NO REDNESS OR SIGNS OF INFECTION, HOWEVER, HIS LEFT LOWER EXTREMITY DOWN BY THE ANKLE AND FOOT WAS WARM TO THE TOUCH AND RED. THIS NURSE WAS INSTRUCTED TO REPORT THIS TO THE PRIMARY DOCTOR AND WAS SUBSEQUENTLY REPORTED TO SANDIE WITH DR. CHEN.
--- NOTE | 2022-03-06 15:40 | NUR ---
This is a 30 day readmission for patient. Patient was previously discharged to a skilled bed at [facility]. Patient is scheduled to have a pacemaker placed today. electrical maintenance worker contacted Carolyn at [facility] and confirmed that patient resides there in care home care and they will accept patient upon discharge. Worker faxed clinical information to [facility]. Worker contacted patient's father, Ari and advised of the above information. Ari confirmed that patient will return to [facility] upon discharge and the facility will arrange a wheelchair van to transport.
--- NOTE | 2022-03-06 17:42 | NUR ---
Moderate sedation assessment completed prior to procedure and documented afterwards. See merge for all medication, assessment, vital sign, and intervention times.
--- NOTE | 2022-03-06 20:00 | NUR ---
PT SLEEPING SOUNDLY IN BED, AUDIBLE SNORING AND SOME EPISODES OF APNEA NOTED. OXYMASK WITH 6L CURRENTLY IN PLACE. PT DOES AROUSE TO TACTILE STIMULATION, REMAINS DROWSY. RIGHT GROIN SITE SOFT, DRESSSING WITH NO DRAINAGE NOTED. BOTH PIV'S FLUSH WELL, SALINE LOCKED. LUE AV FISTULAS WITH THRILL AND BRUIT, LIMB RESTRICTION BRACELET IN PLACE. BED ALARM SET FOR SAFETY, CALL LIGHT IN REACH. WILL CONTINUE TO MONITOR.
--- NOTE | 2022-03-06 22:00 | NUR ---
PT AWAKE AND ALERT, AWARE OF SURROUNDING AND SITUATION. DIET ORDER RECEIVED FROM DR. CHEN, PT HAVING FOOD AT THIS TIME. PM MEDS GIVEN. THOMAS REMOVED (27) FROM L KNEE PER DAY SHIFT IRMA SCHWAB'S REPORT FROM [facility] WELL APPROXIMATED AND HEALING, DID NOT PLACE STERI STRIPS. MEDIPORE DRESSING PLACED OVER SITE AFTER CLEANING WITH CHLOROHEXIDINE SWAB. PT STATES DOES NOT WANT TO CLEAN UP OR REMOVE EXCESS BLANKETS FROM UNDER HIM, STATES HE NEEDS THEM. DR. CHEN REQUESTED PT BE MOVED TO MEDICAL FLOOR, HOWEVER DUE TO STAFFING DUCK OPERATOR STATES CANNOT HAPPEN THIS EVENING SHIFT. NO OXYMASK ON WHILE PT IS EATING AND HOLDING O2 SAT ABOVE 94%. CALLED TO [facility] TO VERIFY THAT PT DOES NOT USE CPAP AT FACILITY. THEY STATE HE DOES HAVE APNEA HOWEVER ONLY TOLERATES A NC SOMETIMES. WILL CONTINUE TO MONITOR.
[2022-03-07] VITALS (630 sets, daily range): BP systolic 82–126; BP diastolic 49–73; PULSE 60–64; TEMP 97.1–98; O2SAT 83–100
--- NOTE | 2022-03-07 05:00 | NUR ---
[address] CHEN PT'S BP HAS BEEN TRENDING LOWER FOR THE LAST SEVERAL HOURS, NOW MAP IS LESS THAN 60. ORDERS RECEIVED FOR NS 500 BOLUS OVER 2 HOURS. IV IN R A/C OCCLUDING OFTEN PT FORGETS TO KEEP IT STRAIGHTENED OUT. R SHOULDER PIV LEAKING WITH FLUSH, REMOVED. RN ATTEMPTED NEW IV START X1, UNSUCCESSFUL. ADDITIONAL RN'S ASSESSED IV OPTIONS AND NO VIABLE VEINS SEEN. WILL CONTINUE TO TRY R A/C AND POSITIOING TO GET BOLUS IN. PT ALERT AND TALKING, ASYMPTOMATIC TO LOW BP.
[2022-03-07 06:14] LABS: ALBUMIN 2.6 gm/dL (3.4-4.8); CALCIUM 8.7 mg/dL (8.4-10.2); CREATININE, serum 9.74 mg/dL (0.72-1.25); PHOSPHOROUS 10.6 mg/dL (2.3-4.7); POTASSIUM 4.4 mmol/L (3.5-4.5)
--- NOTE | 2022-03-07 06:20 | NUR ---
LAB CALLED TO NOTIFY [facility] CANCELLED RECEIVED A BAD SAMPLE. HAND DRY CLEANER DID DRAW FROM PT'S RIGHT FOREFINGER AND SENT PEDIATRIC TUBES. SAMPLE POSSIBLY HEMOLYZED. WILL REORDER AND PASS IN REPORT MAY NEED TO HAVE LABS DONE DURING DIALYSIS.
[2022-03-07 07:55] LABS: BASO % 0.5 % (0.0-2.0); EOS % 0.8 % (0.0-4.0); GRAN # 2.9 K/mm3 (1.4-6.5); GRAN % 77.1 % (42.2-75.2); LYMPH # 0.5 K/mm3 (1.2-3.4); LYMPH % 12.5 % (20.0-51.0); MEAN CELL VOLUME 103 fl (80.0-100.0); MEAN CORPUSCULAR HGB CONC 32 g/dl (33.0-37.0); MEAN PLATELET VOLUME 10.4 fl (7.4-10.4); MONO # 0.3 K/mm3 (0.1-0.6); MONO % 8.8 % (1.7-9.3); PLATELET COUNT 223 K/mm3 (130-400); RED BLOOD COUNT 2.81 M/mm3 (4.20-5.60); REDCELL DISTRIBUTION WIDTH-CV 14.9 % (11.5-14.5)
[2022-03-07 07:56] LABS: HEMATOCRIT 28.8 % (42.0-52.0); HEMOGLOBIN 9.1 g/dl (13.5-18.0); MEAN CORPUSCULAR HEMOGLOBIN 32 pg (27-31)
--- NOTE | 2022-03-07 08:49 | NUR ---
PT BG 28, 12.5G IV PUSH DEXTROSE 50% GIVEN. BG RECHECK 71 AT 10 MINUTES. PROVIDER NOTIFED. WAITING FOR FURTHER INSTRUCTION
--- NOTE | 2022-03-07 10:07 | NUR ---
BEDSIDE REPORT RECEIVED FROM KATARZYNA SOLIS. PT CURRENTLY SLEEPING. NO LINES CURRENTLY RUNNING. PT ON 3 L SUPP O2 VIA OXYMASK
--- NOTE | 2022-03-07 14:02 | NUR ---
Received report from ICU. Pt still in dialysis
--- NOTE | 2022-03-07 14:05 | NUR ---
PATIENT TOLERATED HD TX WITH 4.7L REMOVED, ATTEMPTED INCREASED FLUID REMOVAL & PATIENT BECAME HYPOTENSIVE. NEXT PLANNED HD TX ON Saturday03/09/22 @ 0830.
[2022-03-08] VITALS: BP 91/48; PULSE 66; TEMP 97.8
--- NOTE | 2022-03-08 00:39 | NUR ---
Received report from day shift. Patient alert to self. Patient here for hyperkalemia. VSS. Assessment performed. Patient denies pain. PM meds administered. Patient had a small nosebleed. Cleaned patient up and call light near.
[2022-03-08 04:12] VITALS: BP 119/7; PULSE 66; TEMP 98.6
[2022-03-08 06:00] LABS: BASO % 0.5 % (0.0-2.0); EOS # 0.1 K/mm3 (0.0-0.7); EOS % 2.1 % (0.0-4.0); GRAN # 2.7 K/mm3 (1.4-6.5); GRAN % 70.7 % (42.2-75.2); LYMPH # 0.6 K/mm3 (1.2-3.4); LYMPH % 16.4 % (20.0-51.0); MEAN CELL VOLUME 107 fl (80.0-100.0); MEAN CORPUSCULAR HGB CONC 30 g/dl (33.0-37.0); MEAN PLATELET VOLUME 10.8 fl (7.4-10.4); MONO # 0.4 K/mm3 (0.1-0.6); MONO % 9.8 % (1.7-9.3); PLATELET COUNT 233 K/mm3 (130-400); RED BLOOD COUNT 2.92 M/mm3 (4.20-5.60); REDCELL DISTRIBUTION WIDTH-CV 14.8 % (11.5-14.5)
[2022-03-08 06:15] LABS: HEMATOCRIT 31.1 % (42.0-52.0); HEMOGLOBIN 9.3 g/dl (13.5-18.0); MEAN CORPUSCULAR HEMOGLOBIN 32 pg (27-31)
[2022-03-08 06:25] LABS: ALBUMIN 2.7 gm/dL (3.4-4.8); CALCIUM 9.4 mg/dL (8.4-10.2); CREATININE, serum 6.9 mg/dL (0.72-1.25); PHOSPHOROUS 7.9 mg/dL (2.3-4.7); POTASSIUM 4.6 mmol/L (3.5-4.5)
[2022-03-08 07:52] VITALS: BP 112/54; PULSE 66; TEMP 98.7
--- NOTE | 2022-03-08 08:02 | NUR ---
Assessment complete. A&Ox3. Denies pain/nausea/shortness of breath. VS stable. Is alert but not oriented and combative this AM swinging at this nurse when trying to do assessment. Very uncooperative and unalbe to complete full head/toe assessment. TELE reports V Paced. Has fistula x2 to left forearm. O2@2L/oxymask-currently has tissues stuffed up nostrils and swatted at hand when trying to move to do assessment. Right AC INT flushes without difficulty-no redness or drainage noted. Noted to have some redness to left ankle. Did take pills whole with water okay. 1500FR being enforced. Denies needs. Call light in reach. Will monitor.
--- NOTE | 2022-03-08 09:46 | NUR ---
Humidification added to O2 per dr order.
[2022-03-08 11:56] VITALS: PULSE 63; TEMP 98.3
--- NOTE | 2022-03-08 13:57 | NUR ---
Patient much more cooperative and friendly this afternoon. Denies pain/nausea/shortness pf breath. Continues to have tissue stuffed in left nostril due to previous nose bleed. Humidified O2@2L/Oxymask with adequate oxygenation. Denies current needs. Call light in reach. Will monitor.
--- NOTE | 2022-03-08 14:14 | NUR ---
1415-Notified by PCT and IRMA Dutta that patient was very diaphoretic and not responding to questions. VS stable. Bedside glucose 18. Lab called x3 for STAT lab draw. IRMA Young called Dr Chu-new orders received. 1418-Hypoglycemia protocol initiated. Amp of D50 given. 1420-Patient alert and answering questions appropriately. States "They just arent feeding and letting me drink enough." 1430-Lab at bedside for STAT draws. 1433-Repeat bedside glucose 80. Provided with sandwich box-ate 100%. 1440-Sitting up in bed watching TV. Denies needs. Call light in reach. Will monitor.
--- NOTE | 2022-03-08 15:17 | NUR ---
Lab results back-attempt made to call Dr Chu to update-unavailable. Will retry at a later time.
[2022-03-08 15:27] VITALS: BP 149/71; PULSE 65; TEMP 97.2
--- NOTE | 2022-03-08 15:40 | NUR ---
Dr Chu updated with BNP results as well as current blood sugars. New orders received to DC all diabetic medications and to ensure patient is receiving enough food at each meal.
--- NOTE | 2022-03-08 15:43 | NUR ---
Telecommunication Lines Repairer contacted Jaja at [facility] and faxed clinical updates. DUTCH advised that discharge will likely be tomorrow. Jaja would like to set up transport for between 1230 and 1330. DUTCH spoke with community relations rep who advised patient is scheduled for dialysis tomorrow at 0830. DUTCH contacted patient's father, Ari to provide update.
--- NOTE | 2022-03-08 16:16 | NUR ---
1613-Report from PCT bedside glucose recheck-27. Patient is alert but diaphoretic. Hypoglycemic protocol initiated. 1615-Lab notified of need for STAT labs. 1618-Amp of D50 given IV push. Patient more talkative and states he is thirsty. Provided another sandwich box and assisted to order dinner tray. 1636-Bedside glucose 76.
--- NOTE | 2022-03-08 16:20 | NUR ---
Lab at bedside for STAT glucose.
--- NOTE | 2022-03-08 17:00 | NUR ---
Spoke with Dr Chu again about not being able to maintain bedside glucose after three sandwich boxes, juice, peanut butter/crackers and milk. New orders received and initiated. Will monitor.
--- NOTE | 2022-03-08 17:17 | NUR ---
Patient continues to have low blood sugars. Alert and able to communicate needs-eating another sandwich box. D10 Continues ot infuse. Will recheck in 15 minutes.
--- NOTE | 2022-03-08 17:36 | NUR ---
Lab at bedside.
--- NOTE | 2022-03-08 17:47 | NUR ---
Patient continues to be asymptomatic. Bedside glucose has been checked on several different machines for verification. Lab has also drawn several. D10 continues to infuse per order.
--- NOTE | 2022-03-08 18:05 | NUR ---
Dr Chu notified of blood sugars still in the 30s-verified by lab. New orders received to give an amp of D50 and increase D10 to 125ml/hr. Done at this time. Also requested to give pharmacy a call to see if dextrose can be given IV at a higher concentration. Done at this time. Pharmacist states will call back with more information.
--- NOTE | 2022-03-08 18:17 | NUR ---
Dr Chu updated on info from pharmacist. Phone order received to increase D10 to 150ml/hr. Done at this time.
--- NOTE | 2022-03-08 19:30 | NUR ---
Patient resting quietly in bed. Receiving 2L oxygen via oxymask, tolerating well. Patient's BG at 1910 66. D10 infusing at 150 mL/hr upon assessment; titrated to 250 mL/hr per orders to maintain BG greater than [address] Chu. Patient is alert and follows verbal commands. Some confusion present. Patient currently has some tissue stuffed into the left nostril for a small nose bleed.
[2022-03-08 20:43] VITALS: BP 118/68; PULSE 59; TEMP 98.6
--- NOTE | 2022-03-08 22:37 | NUR ---
Patient alert and requesting cookies and ice cream. Most recent BG of 116 at 2233. Sugars have sustained > 80 over last hour. D10 placed on standby at this time.
--- NOTE | 2022-03-08 23:00 | NUR ---
BG dropped 42 points in 30 minutes. D10 resumed. Currently infusing at 300mL/hr.
[2022-03-09 00:15] VITALS: BP 120/54; PULSE 70; TEMP 98.3
[2022-03-09 04:05] VITALS: BP 128/62; PULSE 66; TEMP 97.6
--- NOTE | 2022-03-09 04:09 | NUR ---
Patient sugars maintaining above 100 since approximately 0000. This RN has continued accuchecks every 30mins to one hour d/t continuation of D10. At this time, D10 is infusing at 25mL/hr. Will continue to monitor and titrate as needed.
[2022-03-09 06:35] LABS: BASO % 0.4 % (0.0-2.0); EOS # 0.1 K/mm3 (0.0-0.7); EOS % 1.7 % (0.0-4.0); GRAN # 6.2 K/mm3 (1.4-6.5); GRAN % 80.2 % (42.2-75.2); LYMPH # 0.8 K/mm3 (1.2-3.4); LYMPH % 10.2 % (20.0-51.0); MEAN CELL VOLUME 106 fl (80.0-100.0); MEAN CORPUSCULAR HGB CONC 31 g/dl (33.0-37.0); MEAN PLATELET VOLUME 10.8 fl (7.4-10.4); MONO # 0.6 K/mm3 (0.1-0.6); MONO % 7.2 % (1.7-9.3); PLATELET COUNT 238 K/mm3 (130-400); RED BLOOD COUNT 2.94 M/mm3 (4.20-5.60); REDCELL DISTRIBUTION WIDTH-CV 14.5 % (11.5-14.5)
[2022-03-09 06:38] LABS: HEMATOCRIT 31.1 % (42.0-52.0); HEMOGLOBIN 9.5 g/dl (13.5-18.0); MEAN CORPUSCULAR HEMOGLOBIN 32 pg (27-31)
[2022-03-09 06:51] LABS: ALBUMIN 2.9 gm/dL (3.4-4.8); CALCIUM 9.1 mg/dL (8.4-10.2); CREATININE, serum 8.19 mg/dL (0.72-1.25); PHOSPHOROUS 9.3 mg/dL (2.3-4.7); POTASSIUM 4.6 mmol/L (3.5-4.5)
--- NOTE | 2022-03-09 07:30 | NUR ---
Pt sleeping, woke pt for accucheck. Reading was 104, will continue to monitor.
--- NOTE | 2022-03-09 08:30 | NUR ---
Pt in dialysis now, discussed getting blood glucose during dialysis
[2022-03-09 09:05] VITALS: BP 146/78; PULSE 64; TEMP 98.5
--- NOTE | 2022-03-09 12:00 | NUR ---
Pt back from dialysis. Slowed the D10 down to 25ml/hr per order. Pt has had breakfast, although it was later so he is not wanting any lunch. Dressing removed from right knee. Incision healing well.
[2022-03-09 12:11] VITALS: BP 129/68; PULSE 63; TEMP 98.5
--- NOTE | 2022-03-09 12:11 | NUR ---
PATIENT TOLERATED HD TX WITH 4L OF FLUID REMOVED. NEXT PLANNED HD TX ON Saturday03/12/22 @ 0830. O2 OFF WHEN PATIENT IS AWAKE & O2 NEEDED WHEN SLEEPING DUE TO DESATURATION 82-88% WITH SNORING RESPIRATIONS & NOTED PERIOD OF APNEA.
--- NOTE | 2022-03-09 14:00 | NUR ---
Human Resources Training Manager notified that patient will not discharge today. SW contacted Jaja at [facility] to provide update. SW also faxed clinical updates. SW then contacted patient's father, Ari to provide update that patient will not discharge. Discharge Plan: [facility] SNF
--- NOTE | 2022-03-09 14:30 | NUR ---
D10 stopped at this time. Pt is been more drowsy today than when I have had him previous days. He has not had any pain complaints and has used the call light when he needs something. pt had a late breakfast, just ordered him a late lunch.
[2022-03-09 15:27] VITALS: BP 126/58; PULSE 77; TEMP 97.7
[2022-03-09 16:04] LABS: ARTERIAL BLD GAS O2 SATURATION 84.2 % (92-100); ARTERIAL BLD GAS TCO2 CT 25.1; ARTERIAL BLOOD GAS BASE EXCESS -4.4 (-2-2); ARTERIAL BLOOD GAS HCO3 23.4 meq/L (22-26); ARTERIAL BLOOD GAS PCO2 56.4 mmHg (35-45); ARTERIAL BLOOD GAS PO2 53.1 mmHg (80-100); ARTERIAL BLOOD GAS pH 7.24 (7.35-7.45)
--- NOTE | 2022-03-09 16:30 | NUR ---
ABGs completed, RT mentioned possibly putting pt on Bipap. Emma informed of this. RT stated that she would put pt on O2 for now and would continue to monitor. Pt agreeable to keep O2 on. No pain complaints
--- NOTE | 2022-03-09 19:31 | NUR ---
Pt eating dinner now as he ate a late breakfast and late lunch. Pt BS prior to dinner had dropped some. When giving report, stated that order was for q4h but to possibly check one again after dinner. Pt was complaining of feeling sweaty, gave pt fan
[2022-03-09 20:45] VITALS: BP 142/59; PULSE 73; TEMP 98
[2022-03-10] VITALS (7 sets, daily range): BP systolic 111–181; BP diastolic 52–73; PULSE 66–87; TEMP 97.9–98.9
[2022-03-10 06:05] LABS: BASO % 0.4 % (0.0-2.0); EOS # 0.1 K/mm3 (0.0-0.7); EOS % 2.7 % (0.0-4.0); GRAN # 3.8 K/mm3 (1.4-6.5); GRAN % 74.2 % (42.2-75.2); LYMPH # 0.7 K/mm3 (1.2-3.4); LYMPH % 13.7 % (20.0-51.0); MEAN CELL VOLUME 103 fl (80.0-100.0); MEAN CORPUSCULAR HGB CONC 31 g/dl (33.0-37.0); MONO # 0.5 K/mm3 (0.1-0.6); MONO % 8.8 % (1.7-9.3); PLATELET COUNT 216 K/mm3 (130-400); RED BLOOD COUNT 2.88 M/mm3 (4.20-5.60); REDCELL DISTRIBUTION WIDTH-CV 14.4 % (11.5-14.5)
[2022-03-10 06:08] LABS: HEMATOCRIT 29.6 % (42.0-52.0); HEMOGLOBIN 9.1 g/dl (13.5-18.0); MEAN CORPUSCULAR HEMOGLOBIN 32 pg (27-31)
[2022-03-10 06:31] LABS: ALBUMIN 2.8 gm/dL (3.4-4.8); CALCIUM 9.2 mg/dL (8.4-10.2); CREATININE, serum 6.57 mg/dL (0.72-1.25); PHOSPHOROUS 7.2 mg/dL (2.3-4.7); POTASSIUM 4.6 mmol/L (3.5-4.5)
--- NOTE | 2022-03-10 07:27 | NUR ---
Patient had an uneventful evening, rested quietly for most of the shift. Patients blood sugars remained steady throughout the night, glucose being checked Q4. Intermittently the patient experienced minor nose bleeds, tissues were provided for the patient; amount of blood has been scant with each episode. Patient has had no complaints of pain and has been pleasant. Patient is alert and has had no difficulty following constructions. No other complaints voiced at this time, call light within reach.
--- NOTE | 2022-03-10 08:10 | NUR ---
Pt doing okay today. He has sat up in bed and ate breakfast. Blood sugars are within normal limits. Pt is not having any complaints of pain. He does state that he wishes he could blow his nose, but states he cannot. Pt has had an off and on bloody nose for several days. Tried to encourage pt to blow his nose to help, but he just kept stating he couldn't. Pt now wishes to take nap. Fistulas x2, one being used for dialysis has dressing that is CDI.
--- NOTE | 2022-03-10 17:47 | NUR ---
Blood pressure continues to increase even with PRN medication. Notified GE Le. No new orders at this time. Will repeat Hydralazine when it is time. Pt reports feeling good.
[2022-03-11] VITALS (7 sets, daily range): BP systolic 110–158; BP diastolic 53–74; PULSE 61–70; TEMP 97.3–98.6
--- NOTE | 2022-03-11 03:10 | NUR ---
Patient has had a quiet evening, currently laying in bed resting. Assessment and medication adminstration were completed without difficulty. Patient in a pleasant mood throughout shift and has been teasing the staff. Patient received a call from his father at approximately 9pm. Patient had elvated BP , PRN hydralazine was given at around 2024 per EMAR. Patient has no other coplaints at this time. Call light within reach.
--- NOTE | 2022-03-11 06:45 | NUR ---
appears to be sleeping, O2 on at 5L/mask, bedside shift report received from IRMA Hamilton
--- NOTE | 2022-03-11 08:10 | NUR ---
entered room and he continues to sleep, turned on lights and called his name and didn't arouse, rubbed on his chest and he did respond, when asked if he wanted breakfast mumbled "what ya got", then goes back to sleep, continued to try and wake him and then he started to swing, will let him sleep and assist him when breakfast arrives, blood sugar rechecked and is 128
--- NOTE | 2022-03-11 09:15 | NUR ---
was finally able, after much coaxing, to get patient awake and opening his eyes, he is grumpy and only doing things as he wishes, attempted to clean face of blood from bloody nose and he refuses but eventually he does this himself, was able to get him to take his am medicine, attempted to compolete shift assessment and he instructs me not now, sat up in bed for breakfast and assisted him with this, O2 sat on room air 95%
--- NOTE | 2022-03-11 09:50 | NUR ---
he wake long enough to eat all of breakfast and have nutrition snack, now ready to go back to sleep
--- NOTE | 2022-03-11 10:27 | NUR ---
appears to be sleeping, full assessment completed, see interventions for further info
--- NOTE | 2022-03-11 11:10 | NUR ---
awake and asking for bedpan, only had a smear of BM, am hygiene completed as the patient would allow, linen changed, he became more cooperative as we were finishing and trying to joke with us
--- NOTE | 2022-03-11 12:40 | NUR ---
he allowed the CHAMBER WALKER to get his blood sugar but was angry and did not want to sit up to have lunch
--- NOTE | 2022-03-11 13:02 | NUR ---
in bed and appears to be sleeping, attempt to awaken for lunch and he just frowns and swings his arm, lunch left at bedside
--- NOTE | 2022-03-11 13:46 | NUR ---
is awake now and sitting up in bed eating lunch
--- NOTE | 2022-03-11 14:15 | NUR ---
awake now and visiting with friends
--- NOTE | 2022-03-11 15:00 | NUR ---
dozing but arouses easily now, operating room technician called and was unable to see a rhythm, battery changed and transmission confirmed with tech,
--- NOTE | 2022-03-11 16:05 | NUR ---
appears to be sleeping, in bed with eyes closed, resp quiet and easy
--- NOTE | 2022-03-11 17:05 | NUR ---
awake now talking wiht BRITNI, will order his supper
--- NOTE | 2022-03-11 19:04 | NUR ---
dozing at intervals, arouses easily, bedside shift report given to IRMA Hamilton
[2022-03-12 03:37] VITALS: BP 147/62; PULSE 66; TEMP 97.8
--- NOTE | 2022-03-12 04:48 | NUR ---
Patient has had an uneventful evening, has been resting quietly in bed. Patient has no complaints of pain throughout the shift. If criteria is met patient is expected to DC 03/12/22. Full body assessment and vital signs completed and are WNL. No other complaints at this time. Call light within reach.
[2022-03-12 08:00] VITALS: BP 150/55; PULSE 62; TEMP 98.9
--- NOTE | 2022-03-12 08:28 | NUR ---
Pt resting with eyes closed, even non labored breathing. Breakfast was ordered for pt. Ruth planning on taking pt for dialysis this morning.
--- NOTE | 2022-03-12 08:45 | NUR ---
Pt in dialysis at this time
[2022-03-12 09:03] LABS: BASO % 0.5 % (0.0-2.0); EOS # 0.2 K/mm3 (0.0-0.7); GRAN % 82.9 % (42.2-75.2); LYMPH # 0.5 K/mm3 (1.2-3.4); LYMPH % 8.8 % (20.0-51.0); MEAN CELL VOLUME 100 fl (80.0-100.0); MEAN CORPUSCULAR HGB CONC 32 g/dl (33.0-37.0); MEAN PLATELET VOLUME 10.8 fl (7.4-10.4); MONO # 0.3 K/mm3 (0.1-0.6); MONO % 4.5 % (1.7-9.3); PLATELET COUNT 230 K/mm3 (130-400); RED BLOOD COUNT 2.89 M/mm3 (4.20-5.60); REDCELL DISTRIBUTION WIDTH-CV 14.3 % (11.5-14.5)
[2022-03-12 09:07] LABS: HEMATOCRIT 28.9 % (42.0-52.0); HEMOGLOBIN 9.2 g/dl (13.5-18.0); MEAN CORPUSCULAR HEMOGLOBIN 32 pg (27-31)
[2022-03-12 09:29] LABS: CALCIUM 8.9 mg/dL (8.4-10.2); CREATININE, serum 9.7 mg/dL (0.72-1.25); POTASSIUM 5.4 mmol/L (3.5-4.5)
--- NOTE | 2022-03-12 11:31 | NUR ---
The patient's attending is ready to discharge the patient today. DUTCH notified Jaja at [facility]. Jaja requests skilled orders for fci. DUTCH notified YEIMI Carter. DUTCH contacted and updated the patient's father, Ari. Ari is in agreement to the plan. He states he does not need a call back with the transport time. DUTCH read the IM form outloud to Ari over the phone. Ari verbalized understanding and of discharge today. He gave DUTCH approval to sign the form on his behalf. The patient is to discharge today, 03/12, back to [facility] for a skilled stay. Transportation scheduled around 1330, via [facility]. DUTCH notified the patient's RN. No additional needs at this time.
--- NOTE | 2022-03-12 11:35 | NUR ---
PATIENT TOLERATED HIS HD TX WITH 4.2L OF FLUID REMOVED. NEXT PLANNED HD TX @ [facility] IN [place] ON Saturday03/14/22.
[2022-03-12 11:52] VITALS: BP 141/65; PULSE 60; TEMP 97.6
--- NOTE | 2022-03-12 12:20 | NUR ---
Pt back from dialysis. He is aware that he will be going back to [place] today. Pt not very talkative at this time. Sat pt up for lunch
[2022-03-12] MEDS ORDERED: APRESOLINE 25MG25 MG PO (13:03)
--- NOTE | 2022-03-12 13:50 | NUR ---
Pt transferred to wheelchair via micaela lift and escorted out via transportation from [place].
== END 2022-03-12 13:51 | DRG 228 ==
LOC: ICU 15:05 → SURG 17:26 → ICU 17:26 → SURG 03-07 13:32
PROVIDERS: Nurse Practitioner; Registered Nurse; ADMIT Internal Medicine Nephrology
PROC: 02HK3NZ Insertion of Intracardiac Pacemaker into Right Ventricle, Percutaneous Approach (ICD-10-PCS; principal; 2022-03-07)
PROC: 5A1D70Z Performance of Urinary Filtration, Intermittent, Less than 6 Hours Per Day (ICD-10-PCS; 2022-03-12)
DX: R00.1 Bradycardia, unspecified (principal); N18.6 End stage renal disease; I13.2 Hypertensive heart and chronic kidney disease with heart failure and with stage 5 chronic kidney disease, or end stage renal disease; I50.22 Chronic systolic (congestive) heart failure; Z68.41 Body mass index [BMI] 40.0-44.9, adult; Z00.6 Encounter for examination for normal comparison and control in clinical research program; E87.5 Hyperkalemia; I42.8 Other cardiomyopathies; G31.84 Mild cognitive impairment of uncertain or unknown etiology; M10.9 Gout, unspecified; E78.5 Hyperlipidemia, unspecified; E78.1 Pure hyperglyceridemia; F70 Mild intellectual disabilities; D63.1 Anemia in chronic kidney disease; E66.01 Morbid (severe) obesity due to excess calories; F41.1 Generalized anxiety disorder; G47.33 Obstructive sleep apnea (adult) (pediatric); K21.9 Gastro-esophageal reflux disease without esophagitis; E03.9 Hypothyroidism, unspecified; I48.91 Unspecified atrial fibrillation; F25.9 Schizoaffective disorder, unspecified; E11.22 Type 2 diabetes mellitus with diabetic chronic kidney disease; I44.30 Unspecified atrioventricular block; I45.4 Nonspecific intraventricular block; E83.39 Other disorders of phosphorus metabolism; E11.649 Type 2 diabetes mellitus with hypoglycemia without coma; R04.0 Epistaxis; Z86.73 Personal history of transient ischemic attack (TIA), and cerebral infarction without residual deficits; Z99.2 Dependence on renal dialysis; Z79.4 Long term (current) use of insulin; Z20.822 Contact with and (suspected) exposure to COVID-19
CPT/HCPCS: C1760; C1769; C1786; C1894; J0690; J1644; J2250; J2310; J3010; J7030; J7040; Q5105

== ENCOUNTER 2022-05-12 16:25 | Inpatient (IN) | payer MEDICARE, MEDICAID ==
[~2022-05-12] VITALS: Ht 182.9 cm; Wt 122.3 kg
[~2022-05-12 16:25] MED LIST changes: +APRESOLINE 25MG25 MG PO; +GLUCOTROL10 MG PO; +JARDIANCE25 PO; +KLONOPIN 0.5MG0.5 MG PO; +LANTUS100 U/ML SQ; +LIPITOR 80MG80 MG PO; +MINIPRESS2 MG; +PRINIVIL5 MG PO; +ZYRTEC 10MG10 MG PO; +[UNRECOGNIZED DRUG - OTHER] PO
[2022-05-12] MEDS ORDERED: ZYLOPRIM 100MG100 MG PO (19:11)
[2022-05-12] MEDS ORDERED: NORVASC 5MG5 MG/TAB PO (19:12)
[2022-05-12] MEDS ORDERED: BIOFREEZE 0.2%-1 GE1 TOP (19:13)
[2022-05-12] MEDS ORDERED: COLACE 100100 MG/CAP PO (19:14)
[2022-05-12] MEDS ORDERED: EPA FISH OIL1 SGL PO (19:15)
[2022-05-12] MEDS ORDERED: FOLIC ACID 11 MG/TA1 PO (19:16)
[2022-05-12] MEDS ORDERED: LOPID 600M600 MG/TAB PO (19:17)
[2022-05-12] MEDS ORDERED: KALEXATE1 PDR PO (19:19)
[2022-05-12] MEDS ORDERED: FOSRENOL500 MG PO ×2 (19:20→19:21)
[2022-05-12] MEDS ORDERED: CYTOMEL 2525 MCG/TAB PO (19:23)
[2022-05-12] MEDS ORDERED: PRINIVIL10 MG PO (19:24)
[2022-05-12] MEDS ORDERED: GOOD NEIGH1200 MG/15 PO (19:25)
[2022-05-12] MEDS ORDERED: MAALOX ADVANCE148 ML PO (19:25)
[2022-05-12] MEDS ORDERED: PROTONIX 40MG T40 MG PO (19:26)
[2022-05-12] MEDS ORDERED: SEROQUEL 1100 MG/TAB PO (19:28)
[2022-05-12] MEDS ORDERED: ROBITUSSIN DM 105 ML PO (19:28)
[2022-05-12] MEDS ORDERED: ZOCOR 20MG20 MG PO (19:30)
[2022-05-12] MEDS ORDERED: TRIAMC 0.1 454 TOP (19:31)
[2022-05-12] MEDS ORDERED: TRIPHROCAPS SOFT1 MG PO (19:32)
[2022-05-12] MEDS ORDERED: TYLENOL 500MG500 MG PO (19:33)
[2022-05-12 19:34] LABS: HEMATOCRIT 17.7 % (42.0-52.0); HEMOGLOBIN 5.5 g/dl (13.5-18.0)
[2022-05-12] MEDS ORDERED: ZYPREXA 5MG5 MG PO (19:34)
[2022-05-12 20:07] VITALS: BP 116/62; PULSE 70; TEMP 97.7
[2022-05-12 21:23] VITALS: BP 113/33; PULSE 70
[2022-05-12 21:38] VITALS: BP 115/49; PULSE 67
[2022-05-12 22:16] VITALS: BP 118/31; PULSE 68
[2022-05-12 23:16] VITALS: BP 97/31; PULSE 64
[2022-05-13] VITALS (19 sets, daily range): BP systolic 101–131; BP diastolic 37–72; PULSE 48–78; TEMP 97.4–98.5
--- NOTE | 2022-05-13 00:57 | NUR ---
Geri in at shift change to put orders if for patient. Rechecked H&H, Hemoglobin 5.5. Order to give 1 unit of blood tonight, and hold the next two for when he is at dialysis on the . Called OFELIA Chapman, and had two nurse verification for consent for blood. Incontinent of stool, and cares provided. SOB obtained and sent to lab, negative for blood. Denies pain and discomfort. Peripheral INT to right hand. Recieved 1 unit of blood per orders. Asked if H&H needed to be recheck after 1st unit of blood, and Geri said no. Patient put on telemetry. Had been on oxygen at 4 L/min via NC. Patient did desat while sleeping, but seems to be a mouth breather. Put on oxygen at 5 L/min via oxymask. Updated RT. Denies SOB and dyspena. Does report feeling very weak and tired. In bed with call light within reach. High fall risk precautions in place. Bed alarm on.
--- NOTE | 2022-05-13 06:36 | NUR ---
Patient has denied having pain and discomfort. Remains on oxymask. Voices no questions, needs, or concerns at this time. In bed with call light within reach.
[2022-05-13 08:07] LABS: BASO % 0.3 % (0.0-2.0); EOS # 0.1 K/mm3 (0.0-0.7); EOS % 1.1 % (0.0-4.0); GRAN # 5.2 K/mm3 (1.4-6.5); GRAN % 81.8 % (42.2-75.2); LYMPH # 0.6 K/mm3 (1.2-3.4); LYMPH % 9.5 % (20.0-51.0); MEAN CELL VOLUME 105 fl (80.0-100.0); MEAN CORPUSCULAR HGB CONC 31 g/dl (33.0-37.0); MEAN PLATELET VOLUME 10.4 fl (7.4-10.4); MONO # 0.4 K/mm3 (0.1-0.6); MONO % 6.2 % (1.7-9.3); PLATELET COUNT 226 K/mm3 (130-400); RED BLOOD COUNT 1.95 M/mm3 (4.20-5.60); REDCELL DISTRIBUTION WIDTH-CV 16.4 % (11.5-14.5)
[2022-05-13 08:09] LABS: HEMATOCRIT 20.5 % (42.0-52.0); MEAN CORPUSCULAR HEMOGLOBIN 32 pg (27-31)
[2022-05-13 08:10] LABS: HEMOGLOBIN 6.3 g/dl (13.5-18.0)
[2022-05-13 08:21] LABS: ALBUMIN 2.4 gm/dL (3.4-4.8); CALCIUM 9.5 mg/dL (8.4-10.2); CREATININE, serum 8.27 mg/dL (0.72-1.25); PHOSPHOROUS 6.8 mg/dL (2.3-4.7); POTASSIUM 5.7 mmol/L (3.5-4.5)
[2022-05-13 08:43] LABS: THYROID STIMULATING HORMONE 0.37 uIU/mL (0.350-4.940)
--- NOTE | 2022-05-13 09:45 | NUR ---
PATIENT VERY LETHARGIC, UNWILLING TO WAKE UP THIS MORNING. ALLOWED PATIENT TO SLEEP UNTIL 11. MEDS NOT GIVEN TO LETHARGY, FEARED PATIENT WOULD ASPIRATE. PLAN FOR DIALYSIS THIS AM WITH 2UI OF BLOOD. ABD TENDER ON PALAPATION, PATIENT GUARDING AND UNWILLING TO ALLOW MUCH TOUCHING.
--- NOTE | 2022-05-13 15:05 | NUR ---
PATIENT WENT TO DIALYSIS AT 1130, HD RN TRANSFUSED 2 UI OF PRBC. THIS RN VERIFIED AND HUNG BOTH UNITS FOR TRANSFUSION. WILL DOCUMENT VITALS AFTER PATIENT RETURNS IN BLOOD BANK REPORT HD RN DOES NOT HAVE ACCESS TO [email or web address] SYSTEM.
--- NOTE | 2022-05-13 19:33 | NUR ---
PATIENT RECIEVED 2 UNITS OF BLOOD DURING HD TODAY. NO ADVERSE EFFECTS. PATIENT VERY LETHARGIC TODAY. COMPLAINTS OF ABD PAIN. PATIENT WANTS TO BE WOKEN TO EAT. VERY QUIET AT FIRST, TAKES TIME TO WARM TO NEW NURSING STAFF.
[2022-05-14 00:40] VITALS: BP 117/52; PULSE 80; TEMP 97.5
[2022-05-14 04:50] VITALS: BP 122/61; PULSE 73; TEMP 97.5
[2022-05-14 06:50] LABS: BASO % 0.2 % (0.0-2.0); EOS # 0.1 K/mm3 (0.0-0.7); EOS % 1.9 % (0.0-4.0); GRAN # 4.7 K/mm3 (1.4-6.5); GRAN % 75.7 % (42.2-75.2); LYMPH # 0.8 K/mm3 (1.2-3.4); LYMPH % 12.8 % (20.0-51.0); MEAN CORPUSCULAR HGB CONC 31 g/dl (33.0-37.0); MEAN PLATELET VOLUME 10.3 fl (7.4-10.4); MONO # 0.5 K/mm3 (0.1-0.6); MONO % 8.3 % (1.7-9.3); PLATELET COUNT 246 K/mm3 (130-400); RED BLOOD COUNT 2.65 M/mm3 (4.20-5.60); REDCELL DISTRIBUTION WIDTH-CV 18.3 % (11.5-14.5)
[2022-05-14 06:52] LABS: HEMATOCRIT 26.5 % (42.0-52.0); HEMOGLOBIN 8.3 g/dl (13.5-18.0); MEAN CELL VOLUME 100 fl (80.0-100.0); MEAN CORPUSCULAR HEMOGLOBIN 31 pg (27-31)
[2022-05-14 07:22] LABS: ALBUMIN 2.4 gm/dL (3.4-4.8); CALCIUM 9.4 mg/dL (8.4-10.2); CREATININE, serum 5.52 mg/dL (0.72-1.25); PHOSPHOROUS 5.5 mg/dL (2.3-4.7); POTASSIUM 4.6 mmol/L (3.5-4.5)
[2022-05-14 08:00] VITALS: BP 116/54; PULSE 74; TEMP 97.7
--- NOTE | 2022-05-14 10:31 | NUR ---
DUTCH contacted the patient's father, Ari (ph#[phone]), to discuss discharge plan. The patient resides at [facility] in [place] for long-term care. His PCP is Dr. Sonny Bates and his DPOA-HC is in EMR. It designates the patient's father and mother, Mallory. Ari reports that the plan is for the patient to return back to [facility] upon discharge. DUTCH contacted and faxed updates to [facility] at [facility]. *Discharge plan: [facility]*
[2022-05-14 11:35] VITALS: BP 115/58; PULSE 72; TEMP 97.6
[2022-05-14 16:21] VITALS: BP 118/60; PULSE 75; TEMP 98
[2022-05-14 20:42] VITALS: BP 138/86; PULSE 93; TEMP 98
[2022-05-15 00:50] VITALS: BP 126/52; PULSE 78; TEMP 97.6
[2022-05-15 06:06] LABS: BASO % 0.4 % (0.0-2.0); EOS # 0.1 K/mm3 (0.0-0.7); EOS % 1.6 % (0.0-4.0); GRAN # 4.2 K/mm3 (1.4-6.5); GRAN % 74.9 % (42.2-75.2); LYMPH # 0.7 K/mm3 (1.2-3.4); LYMPH % 12.9 % (20.0-51.0); MEAN CELL VOLUME 102 fl (80.0-100.0); MEAN CORPUSCULAR HGB CONC 31 g/dl (33.0-37.0); MEAN PLATELET VOLUME 10.1 fl (7.4-10.4); MONO # 0.5 K/mm3 (0.1-0.6); MONO % 8.8 % (1.7-9.3); PLATELET COUNT 238 K/mm3 (130-400); RED BLOOD COUNT 2.53 M/mm3 (4.20-5.60); REDCELL DISTRIBUTION WIDTH-CV 17.2 % (11.5-14.5)
[2022-05-15 06:19] LABS: HEMATOCRIT 25.7 % (42.0-52.0); MEAN CORPUSCULAR HEMOGLOBIN 32 pg (27-31)
[2022-05-15 06:20] LABS: ALBUMIN 2.3 gm/dL (3.4-4.8); CALCIUM 9.6 mg/dL (8.4-10.2); CREATININE, serum 7.1 mg/dL (0.72-1.25); POTASSIUM 4.9 mmol/L (3.5-4.5)
[2022-05-15 06:32] VITALS: PULSE 78
[2022-05-15 08:04] VITALS: BP 123/65; PULSE 72; TEMP 98
--- NOTE | 2022-05-15 11:29 | NUR ---
DUTCH faxed updates to Jaja at [facility].
--- NOTE | 2022-05-15 16:20 | NUR ---
Verbal consent from Ari Khalil for procedure tomorrow with two nurse verification.
--- NOTE | 2022-05-15 16:50 | NUR ---
YEIMI Carter notified of patients increase in pain. New orders received and initiated for tramadol 50mg x1 now. Also states if medication helps can be ordered tramadol 50mg Q6H PRN.
--- NOTE | 2022-05-15 18:30 | NUR ---
Patient had an uneventful day. Received dialysis this AM. Has been started on bowel prep for EGD/COLON in am and is tolerating well-has already started to have liquid stools. Dr Laboy here and updated on progress with prep. Patient is incontinent of stool and refusing bedpan. Received tramadol x1 for pain with good results. Denies current needs. Call light in reach. Will monitor.
[2022-05-15 19:23] VITALS: BP 149/62; PULSE 78; TEMP 97.7
[2022-05-15 23:15] VITALS: BP 138/64; PULSE 86; TEMP 99.1
[2022-05-16] VITALS (10 sets, daily range): BP systolic 105–129; BP diastolic 47–89; PULSE 69–88; TEMP 97.3–98.7
[2022-05-16 05:44] LABS: BASO % 0.3 % (0.0-2.0); EOS # 0.1 K/mm3 (0.0-0.7); EOS % 1.1 % (0.0-4.0); GRAN % 78.7 % (42.2-75.2); LYMPH # 0.9 K/mm3 (1.2-3.4); LYMPH % 11.4 % (20.0-51.0); MEAN CELL VOLUME 102 fl (80.0-100.0); MEAN CORPUSCULAR HGB CONC 32 g/dl (33.0-37.0); MEAN PLATELET VOLUME 9.9 fl (7.4-10.4); MONO # 0.5 K/mm3 (0.1-0.6); MONO % 7.1 % (1.7-9.3); PLATELET COUNT 267 K/mm3 (130-400); RED BLOOD COUNT 2.72 M/mm3 (4.20-5.60); REDCELL DISTRIBUTION WIDTH-CV 16.4 % (11.5-14.5)
[2022-05-16 05:54] LABS: HEMATOCRIT 27.6 % (42.0-52.0); HEMOGLOBIN 8.7 g/dl (13.5-18.0); MEAN CORPUSCULAR HEMOGLOBIN 32 pg (27-31)
[2022-05-16 05:55] LABS: ALBUMIN 2.3 gm/dL (3.4-4.8); CREATININE, serum 5.46 mg/dL (0.72-1.25); PHOSPHOROUS 5.2 mg/dL (2.3-4.7); POTASSIUM 4.6 mmol/L (3.5-4.5)
--- NOTE | 2022-05-16 08:42 | NUR ---
0830- PT RETURNS FROM COLON/EGD. VERY SLEEPY. BIPOSY TAKEN FROM STOMACH AND DUEDENUM. VITALS INITATED. ASSESSMENT COMPLETE. AM MEDS DUE WILL HOLD UNTIL AWAKE ENOUGH TO CONSUME.
--- NOTE | 2022-05-16 13:43 | NUR ---
The patient may be able to discharge tomorrow. DUTCH attempted to update Latoya at [facility]. DUTCH left her a voicemail and faxed over updates.
[2022-05-16 16:10] LABS: RETIC # 0.09 M/mm3 (0.02-0.16); RETIC % 3.2 % (0.5-3.52)
--- NOTE | 2022-05-16 17:59 | NUR ---
PT HAD A UNEVENTFUL DAY. DIAYLSIS TOMORROW AND POSSIBLE DC BACK TO [place]. CALL LIGHT WI REBECCA. NEEDS MET.
--- NOTE | 2022-05-16 19:19 | NUR ---
PT LAYING IN BED RESTING QUIETLY. PT DENIES ANY PAIN AT THIS TIME.
[2022-05-17 00:31] VITALS: BP 109/70; PULSE 82; TEMP 97.8
[2022-05-17 04:07] VITALS: BP 121/62; PULSE 77; TEMP 98.1
[2022-05-17 07:29] VITALS: BP 103/53; PULSE 68; TEMP 97.4
[2022-05-17 08:43] LABS: MEAN CELL VOLUME 102 fl (80.0-100.0); MEAN CORPUSCULAR HGB CONC 31 g/dl (33.0-37.0); MEAN PLATELET VOLUME 9.9 fl (7.4-10.4); PLATELET COUNT 285 K/mm3 (130-400); RED BLOOD COUNT 2.66 M/mm3 (4.20-5.60); REDCELL DISTRIBUTION WIDTH-CV 15.9 % (11.5-14.5)
[2022-05-17 08:45] LABS: HEMATOCRIT 27.1 % (42.0-52.0); HEMOGLOBIN 8.5 g/dl (13.5-18.0); MEAN CORPUSCULAR HEMOGLOBIN 32 pg (27-31)
[2022-05-17 08:55] LABS: ALBUMIN 2.3 gm/dL (3.4-4.8); CREATININE, serum 7.23 mg/dL (0.72-1.25); POTASSIUM 5.1 mmol/L (3.5-4.5)
[2022-05-17 09:04] LABS: LYMPHOCYTE 25 % (20.0-51.0); NEUTROPHILS 69 % (42.0-75.2); PLATELET ESTIMATE NORMAL (NORMAL)
[2022-05-17 12:00] VITALS: BP 102/55; PULSE 55
--- NOTE | 2022-05-17 13:00 | NUR ---
Latoya, at [facility], requests SNF orders. SW notified the PLUMBING TECHNICIAN. The patient is to discharge today, 05/17, back to to [facility] for a skilled stay. Transportation was arranged at 1330, via [facility]. SW updated the patient's father, Ari, and read the IM form outloud to him over the phone. Ari verbalized understanding and of agreement to discharge today. He gave SW approval to sign the form on his behalf. No additional needs at this time.
--- NOTE | 2022-05-17 13:59 | NUR ---
PT TO [facility] PER W/C W ALL [facility]. PAPERWORK SENT W MARIANA, REPORT CALLED OVER. PT HAS DIAYLSIS THIS AM. ALL MEDS GIVEN. NEEDS MET.
[2022-05-18 09:22] LABS: KAPPA FREE LIGHT CHAIN-SERUM 233.74 mg/L (()); KAPPA LAMBDA RATIO 1.76 ratio (()); LAMDA FREE LIGHT CHAIN SERUM 132.51 mg/L (())
[2022-05-18 22:09] LABS: A/G RATIO (PEP) 0.63 (())
== END 2022-05-17 14:07 | DRG 291 ==
LOC: MEDICAL 16:25
PROVIDERS: Internal Medicine Gastroenterology; Nurse Practitioner; ADMIT Internal Medicine Nephrology
PROC: 5A1D70Z Performance of Urinary Filtration, Intermittent, Less than 6 Hours Per Day (ICD-10-PCS; 2022-05-13)
PROC: 0DB88ZX Excision of Small Intestine, Via Natural or Artificial Opening Endoscopic, Diagnostic (ICD-10-PCS; 2022-05-16)
PROC: 0DB68ZX Excision of Stomach, Via Natural or Artificial Opening Endoscopic, Diagnostic (ICD-10-PCS; 2022-05-16)
PROC: 0DJD8ZZ Inspection of Lower Intestinal Tract, Via Natural or Artificial Opening Endoscopic (ICD-10-PCS; principal; 2022-05-16 07:00)
PROC: 0DB98ZX Excision of Duodenum, Via Natural or Artificial Opening Endoscopic, Diagnostic (ICD-10-PCS; 2022-05-16 07:00)
DX: I13.2 Hypertensive heart and chronic kidney disease with heart failure and with stage 5 chronic kidney disease, or end stage renal disease (principal); N18.6 End stage renal disease; Z68.41 Body mass index [BMI] 40.0-44.9, adult; D63.1 Anemia in chronic kidney disease; I50.20 Unspecified systolic (congestive) heart failure; F20.9 Schizophrenia, unspecified; G31.84 Mild cognitive impairment of uncertain or unknown etiology; B02.9 Zoster without complications; Z20.822 Contact with and (suspected) exposure to COVID-19; I48.91 Unspecified atrial fibrillation; I25.5 Ischemic cardiomyopathy; K59.00 Constipation, unspecified; M10.9 Gout, unspecified; E78.5 Hyperlipidemia, unspecified; E87.5 Hyperkalemia; F79 Unspecified intellectual disabilities; F41.1 Generalized anxiety disorder; G47.33 Obstructive sleep apnea (adult) (pediatric); E66.01 Morbid (severe) obesity due to excess calories; R09.02 Hypoxemia; K21.9 Gastro-esophageal reflux disease without esophagitis; E03.9 Hypothyroidism, unspecified; Z86.16 Personal history of COVID-19; Z90.89 Acquired absence of other organs; Z86.73 Personal history of transient ischemic attack (TIA), and cerebral infarction without residual deficits; Z99.81 Dependence on supplemental oxygen; Z79.890 Hormone replacement therapy; Z88.6 Allergy status to analgesic agent; Z91.11 Patient's noncompliance with dietary regimen; Z99.2 Dependence on renal dialysis; I25.2 Old myocardial infarction; Z95.0 Presence of cardiac pacemaker
CPT/HCPCS: J2704; P9016; Q5105